=== PATIENT | male | born 1955 | race Caucasian/White ===

== ENCOUNTER → 2022-12-24 12:43 | Outpatient (BNVA) | payer MEDICARE, SELFPAY | PROVIDERS: PCP Internal Medicine; Visit Provider Nurse Practitioner Family | DX: R41.89 Other symptoms and signs involving cognitive functions and awareness (principal); R53.83 Other fatigue; G47.33 Obstructive sleep apnea (adult) (pediatric) | CPT/HCPCS: 99202 ==

== ENCOUNTER 2023-02-04 13:19 | Outpatient (REF) | payer MEDICARE, SELFPAY ==
--- NOTE | ~2023-02-04 | MR_ITS ---
EXAMINATION: MR BRAIN WITHOUT CONTRAST CLINICAL INFORMATION: Cognitive issues, memory problems COMPARISON: None TECHNIQUE: Multiplanar multisequence MR imaging of the brain was obtained without intravenous contrast. FINDINGS: There is no acute infarct on diffusion-weighted imaging. There is no intracranial hemorrhage on iron-sensitive imaging. No extra-axial collection or mass effect/herniation. Scattered periventricular and deep white matter and patchy left central pontine T2 FLAIR hyperintensities consistent with mild underlying microangiopathy. No hydrocephalus. Mild generalized cerebral volume loss with commensurate sulcal and ventricular prominence. The major flow voids at the skull base are preserved. The midline structures are normal. The cerebellar tonsils are normally positioned. The craniocervical junction is normal. Marrow signal is within normal limits. The visualized soft tissues are without significant abnormality. Mild ethmoid sinus mucosal thickening. MR/MR head/brain wo con IMPRESSION: Mild generalized cerebral volume loss and mild chronic white matter microangiopathy. Otherwise unremarkable noncontrast MRI of the brain.
== END 2023-02-04 13:20 | disposition home or self-care (01) ==
LOC: HO.MRI 13:19
PROVIDERS: Visit Provider Nurse Practitioner Family
DX: R41.3 Other amnesia (principal)
CPT/HCPCS: 70551

== ENCOUNTER → 2023-03-04 08:59 | Outpatient (REF) | payer MEDICARE, SELFPAY | LOC: HO.SL 08:59 | PROVIDERS: Visit Provider Nurse Practitioner Family | DX: G47.33 Obstructive sleep apnea (adult) (pediatric) (principal); R41.89 Other symptoms and signs involving cognitive functions and awareness; R53.83 Other fatigue | CPT/HCPCS: 95806 ==

== ENCOUNTER → 2023-03-04 09:30 | Outpatient (BNV) | payer MEDICARE, SELFPAY | PROVIDERS: Visit Provider Psychiatry & Neurology Neurology | DX: R06.83 Snoring (principal) | CPT/HCPCS: 95806 ==

== ENCOUNTER 2023-03-17 10:37 | Outpatient (AMB) | payer MEDICARE, SELFPAY ==
--- NOTE | 2023-03-17 10:43 | A.OFFVIS_ITS ---
Intake Vital Signs 03/17/23 10:48 Weight 208 lb BP 126/62 Blood Pressure Location Rt brachial Pulse 99 Pulse Source Pulse Oximeter Pulse Oximetry (%) 98 Oxygen Delivery Method Room Air Intake Visit Reasons: 2m follow up memory impairment-Unable to lvm Intake Note: F/U Memory General Foreman Required: No Allergies lisinopril Adverse Reaction (Mild, Verified 03/17/23 10:44) Cough HPI HPI Comments History of Present Illness Details 67 y/o male patient presents for follow up of cognitive impairment and sleep study. Pt underwent neuropsycohology evaluation. The result was mild cognitive impairment, nonamnestic type, likely due to vas cular factors that include diabetes, hypertension, obesity and sleep apnea. The home sleep study was inconclusive. Brain MRI result was mild generalized cerebral volume loss and mild chronic white matter microangiopathy. The lab result reviewed, His A1C 8.2, vitamin D was 19.2, Sed Rate 24 and C reactive protein was 1.7. Pt reports he as appointment with endocrinoloigst in Jun. He states that he signed gym and exercise started. His memory is about the saem,can't remember well, use note pad and write down everything, check his schedule every hour. [facility] Surgical History (Updated 03/17/23 @ 10:47 by Precious Watson CMA) History of right hip replacement Status post right knee replacement Family History (Updated 12/24/22 @ 13:02 by Koki Jacobsen) Father Skin cancer Social History (Updated 03/17/23 @ 10:48 by Precious Watson CMA) Alcohol intake: current Alcohol intake frequency: holidays/special occasions only Patient Tobacco Use Status: Current someday Tobacco user Review of Systems Const All systems reviewed & are unremarkable except as noted in HPI and below ENT Reports Normal hearing present Neuro Reports Normal hearing present Physical Exam Vital Signs: Last Vital Signs Pulse 99 03/17/23 10:48 BP 126/62 03/17/23 10:48 Pulse Ox 98 03/17/23 10:48 Oxygen Delivery Method Room Air 03/17/23 10:48 Const General: cooperative Nutritional Appearance: obese Orientation/consciousness: patient oriented x3 Resp Effort & Inspection: normal respiratory effort and able to speak in complete sentences Neuro General: patient oriented x3, gait normal and moves all extremities Cranial nerves: Yes Bilaterally intact EOM present, Yes Normal facial strength present, Yes Midline tongue present, Yes Symmetric palate elevation present, Yes Normal hearing present, Yes Ability to bilaterally rotate head present and Yes Ability to bilaterally elevate shoulders present Cognition (Neuro): normal cognition Gait exam (Neuro): Normal gait present Motor exam (neuro): 5/5 motor strength present throughout, Pronator motor function not present and no tremor noted Deep tendon reflexes (DTR's): Right brachioradialis reflex intensity grade: 1+, Left brachioradialis reflex intensity grade: 1+, Right patellar reflex intensity grade: 2+ and Left patellar reflex intensity grade: 2+ Psych Appearance: grossly normal Mental Status: mental status grossly normal Speech and movement: Normal speech and movement present Affect: normal affect Attitude: cooperative Assessment & Plan Assessment & Plan (1) MIKAYLA (obstructive sleep apnea): Code(s): G47.33 - Obstructive sleep apnea (adult) (pediatric) (2) Fatigue: Code(s): R53.83 - Other fatigue (3) Cognitive decline: Code(s): R41.89 - Other symptoms and signs involving cognitive functions and awareness Plan Advised patient to undergo in lab sleep study to assess sleep apnea. Advised patient to start vitmain D3+K2 supplement with vitamin B complex. Suggested patient to have anti-inflammatory diet. Encouraged daily exercise, vigorous walking 30 min daily. Follow up with taxicab coordinator for diabetes management. Repeat neuropsychology evaluation in 6 months. Orders: Orders RT PSG in-lab sleep study 03/17/23 G47.33 - Obstructive sleep apnea (adult) (pediatric) Coding Level of Care Code Est Pt Level 4 (41863) Diagnoses MIKAYLA (obstructive sleep apnea) G47.33 Fatigue R53.83 Cognitive decline R41.89
[2023-03-17 10:48] VITALS: BP 126/62; PULSE 99; O2SAT 98
== END 2023-03-17 11:27 | disposition home or self-care (01) ==
PROVIDERS: PCP Internal Medicine; Visit Provider Nurse Practitioner Family
DX: G47.33 Obstructive sleep apnea (adult) (pediatric) (principal); R53.83 Other fatigue; R41.89 Other symptoms and signs involving cognitive functions and awareness
CPT/HCPCS: 99214

== ENCOUNTER → 2023-03-17 10:37 | Outpatient (BNVA) | payer MEDICARE, SELFPAY | PROVIDERS: PCP Internal Medicine; Visit Provider Nurse Practitioner Family | DX: R41.89 Other symptoms and signs involving cognitive functions and awareness (principal); R53.83 Other fatigue; G47.33 Obstructive sleep apnea (adult) (pediatric) | CPT/HCPCS: 99212 ==

== ENCOUNTER → 2023-04-01 20:30 | Outpatient (REF) | payer MEDICARE, SELFPAY | LOC: HO.SL 20:30 | PROVIDERS: PCP Internal Medicine; Visit Provider Nurse Practitioner Family | DX: G47.33 Obstructive sleep apnea (adult) (pediatric) (principal) | CPT/HCPCS: 95810 ==

== ENCOUNTER → 2023-04-01 20:55 | Outpatient (BNV) | payer MEDICARE, SELFPAY | PROVIDERS: PCP Internal Medicine; Visit Provider Psychiatry & Neurology Neurology | DX: G47.9 Sleep disorder, unspecified (principal) | CPT/HCPCS: 95810 ==

== ENCOUNTER → 2023-06-08 19:30 | Outpatient (REF) | payer MEDICARE, SELFPAY | LOC: HO.SL 19:30 | PROVIDERS: PCP Internal Medicine; Visit Provider Nurse Practitioner Family | DX: G47.33 Obstructive sleep apnea (adult) (pediatric) (principal); R41.89 Other symptoms and signs involving cognitive functions and awareness | CPT/HCPCS: 95810 ==

== ENCOUNTER → 2023-06-08 23:31 | Outpatient (BNV) | payer MEDICARE, SELFPAY | PROVIDERS: PCP Internal Medicine; Visit Provider Psychiatry & Neurology Neurology | DX: G47.61 Periodic limb movement disorder (principal) | CPT/HCPCS: 95810 ==

== ENCOUNTER 2023-07-26 11:02 | Outpatient (AMB) | payer MEDICARE, SELFPAY ==
--- NOTE | 2023-07-26 11:17 | A.OFFVIS_ITS ---
Intake Vital Signs 07/26/23 11:23 Height 5 ft 10 in Weight 195 lb 8 oz BMI 28.0 BP 130/72 Blood Pressure Location Lt brachial Position Sitting Pulse 108 H Pulse Source Pulse Oximeter Pulse Oximetry (%) 97 Oxygen Delivery Method Room Air Intake Visit Reasons: 6m follow up memory impairment CONF Intake Note: Patient presents six month F/U. Allergies lisinopril Adverse Reaction (Mild, Verified 07/27/23 13:31) Cough HPI HPI Comments History of Present Illness Details 68 y/o male patient presents for follow up of cognitive impairment and sleep study. Pt underwent neuropsycohology evaluation. The result was mild cognitive impairment, nonamnestic type, likely due to vascular factors that include diabetes, hypertension, obesity and sleep apnea. The 6 moths repeat neuropsychology evaluation result was generally stable and keeping with a diagnosis of mild cognitive impairment. Recommended repeat neuropsychology evaluation in 6 months, SSRI antidepressant at bedtime to help his mood and sleep. Pt reports his memory is about the same ,can't remember well, use note pad and write down everything, check his schedule every hour. The PSG sleep study result was significant for frequent PLMD with associated with arousals and causing sleep disruption. There was no evidence of sleep apnea. Pt has remote hx of sleep apnea and non compliant for CPAP. The lab result reviewed, His A1C 8.2, vitamin D was 19.2, Sed Rate 24 and C reactive protein was 1.7. He states that he signed gym and exercise started. [facility] Surgical History History of right hip replacement Status post right knee replacement Family History Father Skin cancer Social History Alcohol intake: current Alcohol intake frequency: holidays/special occasions only Patient Tobacco Use Status: Current someday Tobacco user Review of Systems Const All systems reviewed & are unremarkable except as noted in HPI and below ENT Reports Normal hearing present Neuro Reports Normal hearing present Physical Exam Vital Signs: Last Vital Signs Pulse 108 H 07/26/23 11:23 BP 130/72 07/26/23 11:23 Pulse Ox 97 07/26/23 11:23 Oxygen Delivery Method Room Air 07/26/23 11:23 BMI result Body Mass Index 28.0 Const General: cooperative Nutritional Appearance: obese Orientation/consciousness: patient oriented x3 Resp Effort & Inspection: normal respiratory effort and able to speak in complete sentences Neuro General: patient oriented x3, gait normal and moves all extremities Cranial nerves: Yes Bilaterally intact EOM present, Yes Normal facial strength present, Yes Midline tongue present, Yes Symmetric palate elevation present, Yes Normal hearing present, Yes Ability to bilaterally rotate head present and Yes Ability to bilaterally elevate shoulders present Cognition (Neuro): normal cognition Gait exam (Neuro): Normal gait present Motor exam (neuro): 5/5 motor strength present throughout, Pronator motor function not present and no tremor noted Deep tendon reflexes (DTR's): Right brachioradialis reflex intensity grade: 1+, Left brachioradialis reflex intensity grade: 1+, Right patellar reflex intensity grade: 2+ and Left patellar reflex intensity grade: 2+ Psych Appearance: grossly normal Mental Status: mental status grossly normal Speech and movement: Normal speech and movement present Affect: normal affect Attitude: cooperative Assessment & Plan Assessment & Plan (1) Cognitive decline: Code(s): R41.89 - Other symptoms and signs involving cognitive functions and awareness (2) PLMD (periodic limb movement disorder): Code(s): G47.61 - Periodic limb movement disorder Plan Advised patient to start citalopram 10 mg qHS. Suggested patient to have anti-inflammatory diet. Encouraged daily exercise, vigorous walking 30 min daily. Follow up with postulant for diabetes management. Repeat neuropsychology evaluation in 6 months. Medications: New citalopram 10 mg PO BEDTIME 30 tabs 6RF 30 days Coding Level of Care Code Est Pt Level 4 (54376) Diagnoses Cognitive decline R41.89 PLMD (periodic limb movement disorder) G47.61
[2023-07-26 11:23] VITALS: BP 130/72; PULSE 108; O2SAT 97; BMI 28.0
== END 2023-07-26 11:58 | disposition home or self-care (01) ==
PROVIDERS: PCP Internal Medicine; Visit Provider Nurse Practitioner Family
DX: R41.89 Other symptoms and signs involving cognitive functions and awareness (principal); G47.61 Periodic limb movement disorder
CPT/HCPCS: 99214

== ENCOUNTER → 2023-07-26 11:02 | Outpatient (BNVA) | payer MEDICARE, SELFPAY | PROVIDERS: PCP Internal Medicine; Visit Provider Nurse Practitioner Family | DX: R41.89 Other symptoms and signs involving cognitive functions and awareness (principal); G47.61 Periodic limb movement disorder | CPT/HCPCS: 99212 ==

== ENCOUNTER 2023-07-27 10:22 | Outpatient (REF) | payer MEDICARE, SELFPAY | END 2023-07-27 10:23 | disposition home or self-care (01) | LOC: HO.HOSX 10:22 | PROVIDERS: Visit Provider Orthopaedic Surgery | DX: M25.512 Pain in left shoulder (principal); Z79.899 Other long term (current) drug therapy | CPT/HCPCS: 99202 ==

== ENCOUNTER 2023-07-27 13:11 | Outpatient (AMB) | payer MEDICARE, SELFPAY ==
[2023-07-27 13:22] VITALS: BMI 28.0
--- NOTE | 2023-07-27 13:22 | A.OFFVIS_ITS ---
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 The patient describes his pain as sharp in nature. Most of the pain is along the lateral aspect of his shoulder. He has done physical therapy which aggravated his pain. He has also tried Tylenol and anti-inflammatory medicines which gave him minimal relief. Has had injections in the past which gave him no relief. The patient was seen by another orthopedic surgeon who recommended total shoulder replacement surgery. He presents here for a 2nd opinion regarding his treatment options. Allergies lisinopril Adverse Reaction (Mild, Verified 07/27/23 13:31) Cough Medication List - Last Reconciled 07/27/23 by Melvin Fields MD aspirin (Adult Aspirin Regimen) 81 mg PO DAILY karthik rxt-jmr-M6-Kz-chu-qyb-bor 250-40-125 mg-mg-unit (Citracal-D3 Plus Magnesium) tabs PO citalopram 10 mg PO BEDTIME 30 days dulaglutide (Trulicity) 4.5 mg subcut QWEEK empagliflozin (Jardiance) 25 mg PO DAILY omeprazole 20 mg PO DAILY pramipexole 0.125 mg PO DAILY rosuvastatin 5 mg PO DAILY vitamins A,C,P-qyum-cckfgf 4,296 mcg-226 mg-90 mg (PreserVision AREDS) 1 cap PO BID PFSH Surgical History History of right hip replacement Status post right knee replacement Family History Father Skin cancer Social History Alcohol intake: current Alcohol intake frequency: holidays/special occasions only Patient Tobacco Use Status: Current someday Tobacco user Physical Exam Vital Signs: BMI result Body Mass Index 28.0 Const Other: Well-nourished well-developed very friendly male awake alert and oriented x3 in no acute distress Extrem Other: Bilateral upper extremity examination shows good capillary refill, no skin lesions noted, normal sensation light touch Left shoulder examination shows slightly decreased range of motion when compared to his right shoulder, 4/5 strength with supraspinatus testing, positive impingement signs, tenderness over his acromioclavicular joint, no instability Results Reviewed Results Reviewed: MRI of the patient's left shoulder shows severe acromioclavicular joint narrowing, a type 2 acromion, mild glenohumeral joint degenerative changes, a full-thickness tear of the supraspinatus tendon Assessment & Plan Assessment & Plan (1) Left shoulder pain: Code(s): M25.512 - Pain in left shoulder Plan Mr. Severino presents with left shoulder pain and weakness due to impingement syndrome, acromioclavicular joint arthritis and a full-thickness rotator cuff tear. I had a lengthy discussion with the patient regarding the treatment options. At this point I do not feel that his glenohumeral joint degenerative changes warrant a total shoulder replacement. The patient may indeed benefit from rotator cuff repair surgery. The patient does understand that his rotator cuff tear may be irreparable at this time. The risks and benefits of left shoulder surgery were discussed at length with the patient. The patient wishes to proceed with surgery. Surgery will most likely involve left shoulder diagnostic arthroscopy with distal clavicle excision, acromioplasty and rotator cuff repair. I will have my office contact the patient to pick a surgery date. He will follow-up as instructed. He will continue with his range of motion exercises in the meantime to prevent stiffness. Feel free to call me at any time should questions regarding his orthopedic management arise. I spent 22 minutes in reviewing the patient's records and imaging studies, seeing the patient and documenting in the medical record. Orders: Orders XR shoulder LT min 2V Today M25.512 - Pain in left shoulder Coding Level of Care Code New Pt Level 2 (54959) Diagnoses Left shoulder pain M25.512
== END 2023-07-27 13:54 | disposition home or self-care (01) ==
PROVIDERS: PCP Internal Medicine; Visit Provider Orthopaedic Surgery
DX: M25.512 Pain in left shoulder (principal)
CPT/HCPCS: 99202; 99212

== ENCOUNTER → 2023-10-06 13:02 | Outpatient (BNV) | payer MEDICARE, SELFPAY | PROVIDERS: PCP Internal Medicine; Visit Provider Internal Medicine Cardiovascular Disease | DX: R94.31 Abnormal electrocardiogram [ECG] [EKG] (principal) | CPT/HCPCS: 93010 ==

== ENCOUNTER 2023-10-07 11:49 | Outpatient (AMB) | payer MEDICARE, SELFPAY ==
[2023-10-07 12:03] VITALS: BMI 28.0
--- NOTE | 2023-10-07 12:03 | MHC.OFFVIS ---
Intake Vital Signs 10/07/23 12:03 Height 5 ft 10 in Weight 195 lb BMI 28.0 Intake Visit Reasons: Pre-Lt Shld RTC 10/15/23 Intake Note: Giancarlo is a 68 year old right-hand dominant male who presents with complaints of progressively worsening left shoulder pain and weakness. The patient describes his pain as sharp in nature. Most of the pain is along the lateral aspect of his shoulder. He has done physical therapy which aggravated his pain. He has also tried Tylenol and anti-inflammatory medicines which gave him minimal relief. Has had injections in the past which gave him no relief. The patient was seen by another orthopedic surgeon who recommended total shoulder replacement surgery. He presented to me for a 2nd opinion regarding his treatment options. The patient reports difficulty lifting his left hand above shoulder height. Giancarlo is a 68 year old Right hand dominate male who presents for his Pre operative appointment for his Left shoulder RTC on 10/15/2023. Allergies lisinopril Adverse Reaction (Mild, Verified 07/27/23 13:31) Cough Medication List - Last Reconciled 10/07/23 by Melvin Fields MD aspirin (Adult Aspirin Regimen) 81 mg PO BEDTIME karthik obz-sxk-B0-Bb-sgi-qni-bor 250-40-125 mg-mg-unit (Citracal-D3 Plus Magnesium) 1 tab PO DAILY cholecalciferol (vitamin D3) (Vitamin D3) 25 mcg PO DAILY citalopram 10 mg PO BEDTIME 30 days dulaglutide (Trulicity) 4.5 mg subcut QWEEK empagliflozin (Jardiance) 25 mg PO QAM insulin glargine (Basaglar KwikPen U-100 Insulin) 20 - 22 units subcut QAM magnesium oxide 400 mg PO DAILY omeprazole 20 mg PO QAM oxycodone 10 mg (2 x 5 mg) PO Q4H PRN 1 week pramipexole 1.5 mg PO BEDTIME rosuvastatin 5 mg PO DAILY vitamins A,C,P-nvuz-mrssby 4,296 mcg-226 mg-90 mg (PreserVision AREDS) 1 cap PO BID PFSH Medical History Osteoarthritis DVT (deep venous thrombosis) Depression RBBB (right bundle branch block) LAFB (left anterior fascicular block) Spinal stenosis Cognitive decline Elevated cholesterol GERD (gastroesophageal reflux disease) Diabetes Sleep apnea PLMD (periodic limb movement disorder) Surgical History History of esophagogastroduodenoscopy (EGD) H/O colonoscopy Hx of shoulder surgery History of total left hip replacement History of right hip replacement Status post right knee replacement Family History Father Skin cancer Social History Are you a primary patient care provider to a significant other at home: No Do you presently have visiting nurse or other home services: No Alcohol intake: current Alcohol intake frequency: does not drink Patient Tobacco Use Status: Former Tobacco user Quit Date: 1989 Tobacco use type: Cigarette Years Smoked: 15 Physical Exam Vital Signs: BMI result Body Mass Index 28.0 Const Other: Bilateral upper extremity examination shows good capillary refill, no skin lesions noted, normal sensation light touch Extrem Other: Left shoulder examination shows decreased range of motion when compared to his right shoulder, 4/5 strength with supraspinatus testing, positive impingement signs, tenderness over his acromioclavicular joint, no instability Results Reviewed Results Reviewed: MRI of the patient's left shoulder shows severe acromioclavicular joint narrowing, a type 2 acromion, mild glenohumeral joint degenerative changes, a full-thickness rotator cuff tear Assessment & Plan Assessment & Plan (1) Left shoulder pain: Code(s): M25.512 - Pain in left shoulder Plan Mr. Severino presents with left shoulder pain and weakness due to impingement syndrome, acromioclavicular joint arthritis and a full-thickness rotator cuff tear. I had a lengthy discussion with the patient regarding the treatment options. The risks and benefits of left shoulder surgery were discussed at length with the patient. The patient wishes to proceed with surgery. Surgery will likely involve left shoulder diagnostic arthroscopy with distal clavicle excision, acromioplasty and rotator cuff repair. The patient was given a prescription for oxycodone at his preoperative appointment. He will follow-up as instructed. Feel free to call me at any time should questions regarding his orthopedic arise. I spent 22 minutes in reviewing the patient's records and imaging studies, seeing the patient and documenting in the medical record. Medications: New oxycodone Partial Fill upon patient request. Take 1 to 2 tabs every 4 hours as needed for pain following your left shoulder surgery. 10 mg (2 x 5 mg) PO Q4H 1 week PRN 40 tabs 0RF pain Coding Level of Care Code Est Pt Level 2 (85280) Diagnoses Left shoulder pain M25.512
== END 2023-10-07 12:33 | disposition home or self-care (01) ==
PROVIDERS: PCP Internal Medicine; Visit Provider Orthopaedic Surgery
DX: M25.512 Pain in left shoulder (principal)
CPT/HCPCS: 99214

== ENCOUNTER → 2023-10-07 11:49 | Outpatient (BNVA) | payer MEDICARE, SELFPAY | PROVIDERS: PCP Internal Medicine; Visit Provider Orthopaedic Surgery | DX: M25.512 Pain in left shoulder (principal) | CPT/HCPCS: 99212 ==

== ENCOUNTER 2023-10-15 07:04 | Day surgery (SDC) | payer MEDICARE, SELFPAY ==
--- NOTE | 2023-10-06 | ECG_ITS ---
Test Reason : preop Blood Pressure : / mmHG Vent. Rate : 086 BPM Atrial Rate : 086 BPM P-R Int : 182 ms QRS Dur : 144 ms QT Int : 382 ms P-R-T Axes : 063 002 032 degrees QTc Int : 457 ms Normal sinus rhythm Right bundle branch block Abnormal ECG No previous ECGs available Referred By: Karen Muir Electronically Signed By:TIGRE PETE MD
[2023-10-06 12:22] VITALS: BP 104/58; PULSE 98; RESP 20; O2SAT 99; BMI 28.0
--- NOTE | 2023-10-06 12:33 | HO.ANESPROP2 ---
Documented by User: Karen Muir NP 10/07/23 09:33 HPI - Anesthesia Eval Consult details Narrative: 68yo M for Left Shoulder Arthroscopy, distal clavicle excision, acromioplasty, possible rotator cuff repair Recent URI resolving No CP/SOB with walking daily DM: Improved A1C MIKAYLA: Symptoms better with weight loss GERD: ppi controlls Anesthesia Pre-Procedure Meds Is the patient on any of the following meds?: Dulaglutide (Trulicity) and Any other SGL-1 drugs or drugs that delay gastric emptying (Jardiance) PMFSH Active Problems Active Problems: All Active Problems (Updated 10/06/23 @ 12:12 by Diamond Turner RN) PLMD (periodic limb movement disorder) (Acute) Left shoulder pain (Acute) MIKAYLA (obstructive sleep apnea) (Acute) Fatigue (Acute) Cognitive decline (Acute) Past Medical History Medical History Osteoarthritis DVT (deep venous thrombosis) Depression RBBB (right bundle branch block) LAFB (left anterior fascicular block) Spinal stenosis Cognitive decline Elevated cholesterol GERD (gastroesophageal reflux disease) Diabetes Sleep apnea PLMD (periodic limb movement disorder) Family History Family History Father Skin cancer Family history of problems with anesthesia: No Surgical History Surgical History History of esophagogastroduodenoscopy (EGD) H/O colonoscopy Hx of shoulder surgery History of total left hip replacement History of right hip replacement Status post right knee replacement History of Problems with Anesthesia: No Social History Social History Are you a primary health care facilities inspector to a significant other at home: No Do you presently have visiting nurse or other home services: No Alcohol intake: current Alcohol intake frequency: does not drink Patient Tobacco Use Status: Former Tobacco user Quit Date: 1989 Tobacco use type: Cigarette Years Smoked: 15 Use of substances other than those prescribed or required for medical reasons: No Have you been hit, kicked, punched, or otherwise hurt by someone within the past year? If so, by whom?: No Are you DNR?: No Advance Directives: No Advance Directives Information Provided: Yes Advance Directives on File: No Recently lost weight without trying: No Nutrition Risks: No Nutritional Risk Poor oral hygiene: No (upper molar extractions bilateral) Meds Allergies Allergy/AdvReac Type Severity Reaction Status Date / Time lisinopril AdvReac Mild Cough Verified 07/27/23 13:31 Home Medications ?Medication ?Instructions ?Recorded ?Confirmed ?Last Taken ?Type calcium 1 tab PO DAILY 12/24/22 10/07/23 Unknown History hlv-pmr-Z3-Cl-fagfgc-Ov-boron 250 mg-40 mg-125 unit tablet (Citracal-D3 Plus Magnesium) dulaglutide 4.5 mg/0.5 mL 4.5 mg subcut QWEEK 12/24/22 10/07/23 10/15/23 History subcutaneous pen injector (Trulicity) empagliflozin 25 mg tablet 25 mg PO QAM 12/24/22 10/07/23 10/15/23 History (Jardiance) omeprazole 20 mg capsule,delayed 20 mg PO QAM 12/24/22 10/07/23 Unknown History release pramipexole 0.125 mg tablet 1.5 mg PO BEDTIME 12/24/22 10/07/23 Unknown History vitamins A,C,V-soqd-twxbfk 4,296 1 cap PO BID 12/24/22 10/07/23 Unknown History mcg-226 mg-90 mg capsule (PreserVision AREDS) aspirin 81 mg tablet,delayed 81 mg PO BEDTIME 07/27/23 10/07/23 Unknown History release (Adult Aspirin Regimen) rosuvastatin 5 mg tablet 5 mg PO DAILY 07/27/23 10/07/23 Unknown History insulin glargine 100 unit/mL (3 20 - 22 unit subcut QAM 10/05/23 10/07/23 10/15/23 History mL) subcutaneous pen (Basaglar KwikPen U-100 Insulin) cholecalciferol (vitamin D3) 25 25 mcg PO DAILY 10/06/23 10/07/23 Unknown History mcg (1,000 unit) capsule (Vitamin D3) magnesium oxide 400 mg PO DAILY 10/06/23 10/07/23 Unknown History Exam Height,Weight and Vital Signs: Height 5 ft 10 in Weight 88.451 kg Last Vital Signs Pulse 98 10/06/23 12:22 Resp 20 10/06/23 12:22 BP 104/58 L 10/06/23 12:22 Pulse Ox 99 10/06/23 12:22 O2 Del Method Room Air 10/06/23 12:22 Pertinent Lab Results Pertinent Lab Results: Lab Results 10/06/23 Range/Units 13:10 WBC 10.9 H (4.8-10.8) X10*3/uL RBC 5.55 (4.60-5.80) X10*6/uL Hgb 14.2 (14.0-18.0) g/dl Hct 44.8 (42.0-52.0) % MCV 80.7 (80.0-98.0) fL MCH 25.6 L (27.0-33.0) pg MCHC 31.7 (31.0-36.0) g/dl RDW 14.5 (11.0-16.0) % Plt Count 268 (160-400) X10*3/uL MPV 10.6 (9.4-12.4) fL Absolute Nucleated RBC 0.000 (0.0-0.012) X10*3/uL Nucleated RBC % (auto) 0.0 (0.0-0.2) /100WBC Sodium 138 (135-145) mmol/L Potassium 4.8 (3.3-5.1) mmol/L Chloride 101 (96-108) mmol/L Carbon Dioxide 28 (22-29) mmol/L Anion Gap 14 (12-20) BUN 11 (9-16) mg/dL Creatinine 0.68 (0.5-1.4) mg/dL Estim Creat Clear Calc 119.6 Estimated GFR > 60 Random Glucose 111 (60-115) mg/dL Calcium 9.7 (8.4-10.2) mg/dL Narrative Narrative: EKG 10/2023 Vent. Rate : 086 BPM Atrial Rate : 086 BPM P-R Int : 182 ms QRS Dur : 144 ms QT Int : 382 ms P-R-T Axes : 063 002 032 degrees QTc Int : 457 ms Normal sinus rhythm Right bundle branch block Abnormal ECG No previous ECGs available Airway Mallampati Class: II TM Dist: >3cm Neck ROM: Full Loose/Missing/Broken Teeth: Yes (Molars pulled x 2, crowns) Heart: RRR Lungs: CTAB Assessment and Plan Assessment Anesthesia Assessment: Anesthesia Plan Discussed and PAT Visit Final Anesthetic Review Family History of Problems with Anesthesia: No History of Problems with Anesthesia: No Documented by User: Darshana Vale MD 10/15/23 08:04 HPI - Anesthesia Eval Anesthesia Pre-Procedure Meds If Yes to any meds - educate patient: Pt education - increased risk of aspiration and Pt education - possibility of cancelled proc at provider's discretion PMFSH Past Medical History Medical History Osteoarthritis DVT (deep venous thrombosis) Depression RBBB (right bundle branch block) LAFB (left anterior fascicular block) Spinal stenosis Cognitive decline Elevated cholesterol GERD (gastroesophageal reflux disease) Diabetes Sleep apnea PLMD (periodic limb movement disorder) Family History Family History Father Skin cancer Surgical History Surgical History History of esophagogastroduodenoscopy (EGD) H/O colonoscopy Hx of shoulder surgery History of total left hip replacement History of right hip replacement Status post right knee replacement Social History Social History Are you a primary health care facilities inspector to a significant other at home: No Do you presently have visiting nurse or other home services: No Alcohol intake: current Alcohol intake frequency: does not drink Patient Tobacco Use Status: Former Tobacco user Quit Date: 1989 Tobacco use type: Cigarette Years Smoked: 15 Use of substances other than those prescribed or required for medical reasons: No Have you been hit, kicked, punched, or otherwise hurt by someone within the past year? If so, by whom?: No Are you DNR?: No Advance Directives: No Advance Directives Information Provided: Yes Advance Directives on File: No Recently lost weight without trying: No Nutrition Risks: No Nutritional Risk Poor oral hygiene: No (upper molar extractions bilateral) Meds Allergies Allergy/AdvReac Type Severity Reaction Status Date / Time lisinopril AdvReac Mild Cough Verified 07/27/23 13:31 Home Medications ?Medication ?Instructions ?Recorded ?Confirmed ?Last Taken ?Type calcium 1 tab PO DAILY 12/24/22 10/07/23 Unknown History toh-itx-J9-Sh-ppcrvn-Ke-boron 250 mg-40 mg-125 unit tablet (Citracal-D3 Plus Magnesium) dulaglutide 4.5 mg/0.5 mL 4.5 mg subcut QWEEK 12/24/22 10/07/23 10/15/23 History subcutaneous pen injector (Trulicity) empagliflozin 25 mg tablet 25 mg PO QAM 12/24/22 10/07/23 10/15/23 History (Jardiance) omeprazole 20 mg capsule,delayed 20 mg PO QAM 12/24/22 10/07/23 Unknown History release pramipexole 0.125 mg tablet 1.5 mg PO BEDTIME 12/24/22 10/07/23 Unknown History vitamins A,C,D-sxnh-ooxqpf 4,296 1 cap PO BID 12/24/22 10/07/23 Unknown History mcg-226 mg-90 mg capsule (PreserVision AREDS) aspirin 81 mg tablet,delayed 81 mg PO BEDTIME 07/27/23 10/07/23 Unknown History release (Adult Aspirin Regimen) rosuvastatin 5 mg tablet 5 mg PO DAILY 07/27/23 10/07/23 Unknown History insulin glargine 100 unit/mL (3 20 - 22 unit subcut QAM 10/05/23 10/07/23 10/15/23 History mL) subcutaneous pen (Basaglar KwikPen U-100 Insulin) cholecalciferol (vitamin D3) 25 25 mcg PO DAILY 10/06/23 10/07/23 Unknown History mcg (1,000 unit) capsule (Vitamin D3) magnesium oxide 400 mg PO DAILY 10/06/23 10/07/23 Unknown History Assessment and Plan Assessment Anesthesia Assessment: Chart Reviewed Final Anesthetic Review NPO: Yes ASA Class: III Final Preanesthetic Review: No Changes in Pt Med Stat, Meds/Allgs Chart Reviewed, Consent Obtained/Reviewed and Anes Risks/Benef Reviewed Patient Risk: Intermediate Procedure Risk: Low Anesthetic Plan Anesthetic Plan: GA Disposition: Standard PACU
[2023-10-06 13:59] LABS: Hematocrit 44.8 % (42.0-52.0); Hemoglobin 14.2 g/dl (14.0-18.0); Mean Corpuscular HGB Conc 31.7 g/dl (31.0-36.0); Mean Corpuscular Hemoglobin 25.6 pg (27.0-33.0); Mean Corpuscular Volume 80.7 fL (80.0-98.0); Mean Platelet Volume 10.6 fL (9.4-12.4); Platelet Count 268 X10*3/uL (160-400); Red Blood Count 5.55 X10*6/uL (4.60-5.80); Red Cell Distribution Width 14.5 % (11.0-16.0); White Blood Count 10.9 X10*3/uL (4.8-10.8)
[2023-10-06 14:23] LABS: Anion Gap 14 (12-20); Blood Urea Nitrogen 11 mg/dL (9-16); Calcium 9.7 mg/dL (8.4-10.2); Carbon Dioxide 28 mmol/L (22-29); Chloride 101 mmol/L (96-108); Creatinine Clr Calc Pharmacy 119.6; Estimated Glomerular Filt Rate > 60; Glucose Random 111 mg/dL (60-115); Potassium 4.8 mmol/L (3.3-5.1); Sodium 138 mmol/L (135-145)
[2023-10-15 07:21] VITALS: BMI 29.1
[2023-10-15 07:23] VITALS: BP 116/71; PULSE 107; RESP 18; TEMP 36.2; O2SAT 98
[2023-10-15] MEDS: Lactated Ringers 1,000 ML 100 ML IVCONT (07:53)
[2023-10-15 08:10] LABS: Glucose, Whole Blood 156 mg/dL (60-115)
[2023-10-15 12:16] VITALS: BP 109/57; PULSE 89; RESP 20; TEMP 36.1; O2SAT 97
[2023-10-15 12:21] VITALS: BP 106/58; PULSE 90; RESP 20; O2SAT 99
--- NOTE | 2023-10-15 12:25 | PM.OP ---
Brief Operative Note Date of Service: 10/15/23 Pre-op diagnosis: Left shoulder impingement syndrome, left shoulder acromioclavicular joint arthritis, left shoulder rotator cuff tear Post-op diagnosis: same Procedure: Left shoulder diagnostic arthroscopy with left shoulder arthroscopic distal clavicle excision, left shoulder arthroscopic acromioplasty, left shoulder mini-open rotator cuff repair Implants: One suture anchor (Hedrick Twinfix anchor with #2 Ultrabraid suture) Surgeon: Melvin Fields MD Anesthesia: GETA and regional Was an [employer] Instrument [employer] Tool Maker used for this Procedure?: No Estimated blood loss (mL): 20 Pathology: none sent Condition: stable Disposition: PACU
[2023-10-15 12:26] VITALS: BP 111/63; PULSE 90; RESP 16; O2SAT 94
[2023-10-15 12:31] VITALS: BP 123/42; PULSE 97; RESP 16; O2SAT 95
--- NOTE | 2023-10-15 12:34 | P.OP_ITS ---
Operative Note Operative Note Date of Service: 10/15/23 Narrative: After the patient was identified as Giancarlo Severino and his left shoulder was initialed by myself the patient was brought to the holding area where a left shoulder interscalene regional block was performed by the anesthesiologist in routine fashion. The patient was then brought to the operating room where general anesthesia was induced by the anesthesiologist in routine fashion. The patient was given 2 g of IV Ancef preoperatively for infection prophylaxis. Examination under anesthesia of the patient's left shoulder showed full passive range of motion of the patient's left shoulder when compared to the right. The patient was gently positioned in the beach chair position with all bony prominences well padded. The patient's left shoulder region and upper extremity were prepped and draped in sterile fashion. A formal time-out was completed. A #11 scalpel blade was used to make a posterior portal 2 cm inferior and 1 cm medial to the posterolateral corner of the acromion. Blunt trocar technique was used to enter the glenohumeral joint in routine fashion. An anterior portal was made just lateral to the coracoid process after proper positioning was confirmed using a spinal needle. Diagnostic arthroscopy showed diffuse grade 1 and 2 degenerative changes of the glenoid and humeral head articular surfaces. The articular surfaces were already smooth so no chondroplasty was indicated. There was a full-thickness tear of the supraspinatus tendon. There was no evidence of injury to the biceps tendon or its insertion onto the glenoid. There was no inflammation of the anterior joint capsule. The arthroscope was then placed from the posterior portal into the subacromial space. A lateral portal was made 2 fingerbreadths lateral to the anterior lateral corner of the acromion. The ArthroCare Wand was used to ablate soft tissues along the undersurface of the acromion as well as to excise the coracoacromial ligament. There was a sharp spur along the undersurface of the acromion which was removed using the hooded bur. The arthroscope was then placed into the lateral portal and the acromioplasty was completed with the bur in the posterior portal using the posterior aspect of the acromion as a cutting block. The ArthroCare Wand was then brought in through the anterior portal and was used to ablate soft tissues along the acromioclavicular joint and distal clavicle. The posterior and sup erior ligamentous structures were left intact. A distal clavicle excision of 4 mm was performed using the hooded bur. Any remaining bursal tissue was removed using the arthroscopic shaver. The subacromial space was irrigated and then drained. All arthroscopic instruments were removed. Sterile gloves were changed and the shoulder was once again prepped with Betadine. A #15 scalpel blade was used to extend the lateral portal to the lateral edge of the acromion. The subacromial tissues were dissected using electrocautery down to the superficial deltoid fascia. The trocar split in the anterior raphe of the deltoid was then extended to the lateral edge of the acromion using electrocautery and curved Nathan scissors. Any remaining bursal tissue was removed using curved Nathan scissors. Subacromial and subdeltoid adhesions were bluntly dissected. The undersurface of the acromion was palpated and it was smooth. A #2 Ethibond tag suture was placed into the supraspinatus tendon. The tendon was easily mobilized to its insertion point on the glenoid. The wound was irrigated with copious amounts of normal saline solution. One suture anchor was placed into the greater tuberosity in routine fashion. The rotator cuff repair was then performed using horizontal mattress sutures under minimal tension with the patient's elbow at their side. Following the repair the shoulder was taken through a full range of motion. The repair was stable. The wound was irrigated with copious amounts of normal saline solution. The superficial and deep deltoid fascia were closed with #1 Vicryl [id number]-uq-[id number] interrupted suture. The wound was once again irrigated. The subcutaneous tissues were closed with 2-0 Vicryl interrupted suture. The skin was closed with 3-0 Prolene subcuticular suture and Steri-Strips. The anterior and posterior portals were closed with 3-0 nylon interrupted suture. Dry sterile dressing was placed over all incisions. The patient's left upper extremity was placed into a sling. The patient was awoken and extubated in the operating room. The patient was transferred to the recovery room in stable condition.
[2023-10-15] MEDS: cefTRIAXone sodium 1 GM in 0.9 % Sodium Chloride 50 ML IV (12:37)
[2023-10-15 12:46] VITALS: BP 114/65; PULSE 95; RESP 16; TEMP 36.1; O2SAT 96
== END 2023-10-15 13:20 | disposition home or self-care (01) ==
PROVIDERS: Nurse Practitioner; PCP Internal Medicine; Visit Provider Orthopaedic Surgery
PROC: (CPT 29805; principal; 2023-10-15 10:30)
DX: M75.102 Unspecified rotator cuff tear or rupture of left shoulder, not specified as traumatic (principal); M75.42 Impingement syndrome of left shoulder; M19.012 Primary osteoarthritis, left shoulder; E11.9 Type 2 diabetes mellitus without complications; E78.00 Pure hypercholesterolemia, unspecified; K21.9 Gastro-esophageal reflux disease without esophagitis; G47.33 Obstructive sleep apnea (adult) (pediatric); Z79.84 Long term (current) use of oral hypoglycemic drugs; Z79.85 Long-term (current) use of injectable non-insulin antidiabetic drugs; Z79.4 Long term (current) use of insulin; Z79.82 Long term (current) use of aspirin; Z79.899 Other long term (current) drug therapy; Z88.8 Allergy status to other drugs, medicaments and biological substances
CPT/HCPCS: 23412; 29824; 29826; 36415; 80048; 82947; 85027; 93005; C1713; J0131; J0171; J0665; J0690; J0696; J1100; J2250; J2371; J2405; J2704; J2795; J3010

== ENCOUNTER → 2023-10-15 07:04 | Outpatient (BNV) | payer MEDICARE, SELFPAY | PROVIDERS: PCP Internal Medicine; Visit Provider Orthopaedic Surgery | DX: M75.42 Impingement syndrome of left shoulder (principal); M19.012 Primary osteoarthritis, left shoulder; M75.122 Complete rotator cuff tear or rupture of left shoulder, not specified as traumatic | CPT/HCPCS: 23412; 29824; 29826 ==

== ENCOUNTER 2023-10-28 11:29 | Outpatient (AMB) | payer MEDICARE, SELFPAY ==
--- NOTE | 2023-10-28 11:33 | MHC.OFFVIS ---
Intake Visit Reasons: PO-Lt Shld RTC Repair 10/15/23 Intake Note: Giancarlo a 68 year old male who presents today for a post operative left shoulder RTC repair on 10/15/23 Patient reports he is doing well, states no pain or discomfort. Allergies lisinopril Adverse Reaction (Mild, Verified 10/28/23 11:34) Cough HPI HPI PO-Lt Shld RTC Repair 10/15/23 DR: Details: 68-year-old male who returns to the office today for post-op left shoulder RTC repair, 10/15/[address] Fields. He states he has no pain or discomfort and is doing well overall. He continues to wear the sling as instructed. He has no concerns today. [facility] Medical History Osteoarthritis DVT (deep venous thrombosis) Depression RBBB (right bundle branch block) LAFB (left anterior fascicular block) Spinal stenosis Cognitive decline Elevated cholesterol GERD (gastroesophageal reflux disease) Diabetes Sleep apnea PLMD (periodic limb movement disorder) Surgical History History of esophagogastroduodenoscopy (EGD) H/O colonoscopy Hx of shoulder surgery History of total left hip replacement History of right hip replacement Status post right knee replacement Family History Father Skin cancer Social History Are you a primary veterinarian laboratory animal care to a significant other at home: No Do you presently have visiting nurse or other home services: No Alcohol intake: current Alcohol intake frequency: does not drink Patient Tobacco Use Status: Former Tobacco user Quit Date: 1989 Tobacco use type: Cigarette Years Smoked: 15 Review of Systems Const All systems reviewed & are unremarkable except as noted in HPI and below Physical Exam Extrem Other: Left shoulder: Incision clean, dry and intact. No erythema or drainage. NVI. Results Reviewed Results Reviewed: Brief Operative Note Date of Service: 10/15/23 Pre-op diagnosis: Left shoulder impingement syndrome, left shoulder acromioclavicular joint arthritis, left shoulder rotator cuff tear Post-op diagnosis: same Procedure: Left shoulder diagnostic arthroscopy with left shoulder arthroscopic distal clavicle excision, left shoulder arthroscopic acromioplasty, left shoulder mini-open rotator cuff repair Implants: One suture anchor (Webster Twinfix anchor with #2 Ultrabraid suture) Surgeon: Melvin Fields MD Assessment & Plan Assessment & Plan (1) S/P left rotator cuff repair: Code(s): Z98.890 - Other specified postprocedural states Category: Surgical Plan Sutures removed today, steri strips applied. He was given an order physical therapy to wrok on passive and active assisted ROM, periscapular stabilization, no RTC strengthening until he sees us back in [address] Fields, sooner if needed. Orders: Orders PT Evaluation and Treatment Today Z98.890 - Other specified postprocedural states Patient Instructions: Scribed for Adrienne Lorenzo PA-C, by Flex Amaro chief medical physicist, on 10/28/2023 at 11:30 AM EST. I, Adrienne Lorenzo PA-C, have personally reviewed and agree with the information entered by the scribe. Coding Level of Care Code Global (58813) Diagnoses S/P left rotator cuff repair Z98.890
== END 2023-10-28 12:27 | disposition home or self-care (01) ==
PROVIDERS: PCP Internal Medicine; Visit Provider Physician Assistant
DX: Z98.890 Other specified postprocedural states (principal)
CPT/HCPCS: 99024

== ENCOUNTER → 2023-10-28 11:29 | Outpatient (BNVA) | payer MEDICARE, SELFPAY | PROVIDERS: PCP Internal Medicine; Visit Provider Physician Assistant | DX: Z47.89 Encounter for other orthopedic aftercare (principal) | CPT/HCPCS: 99212 ==

== ENCOUNTER 2023-11-25 13:52 | Outpatient (AMB) | payer MEDICARE, SELFPAY ==
--- NOTE | 2023-11-25 13:54 | A.OFFVIS_ITS ---
Intake Visit Reasons: PO-Lt Shld RTC Repair 10/15/23 Intake Note: Giancarlo is a 68 year old male who presents for his post operative appointment s/p his left shoulder RTC repair on 10/15/23 Patient reports he is doing good, he has no pain and is still going to physical therapy. He states he needs a new order for physical therapy. Allergies lisinopril Adverse Reaction (Mild, Verified 11/25/23 13:58) Cough Medication List - Last Reconciled 11/25/23 by Melvin Fields MD aspirin (Adult Aspirin Regimen) 81 mg PO BEDTIME karthik dzr-qnu-A4-Mu-tme-iji-bor 250-40-125 mg-mg-unit (Citracal-D3 Plus Magnesium) 1 tab PO DAILY cholecalciferol (vitamin D3) (Vitamin D3) 25 mcg PO DAILY citalopram 10 mg PO BEDTIME 30 days dulaglutide (Trulicity) 4.5 mg subcut QWEEK empagliflozin (Jardiance) 25 mg PO QAM insulin glargine (Basaglar KwikPen U-100 Insulin) 20 - 22 units subcut QAM magnesium oxide 400 mg PO DAILY omeprazole 20 mg PO QAM oxycodone 10 mg (2 x 5 mg) PO Q4H PRN 1 week pramipexole 1.5 mg PO BEDTIME rosuvastatin 5 mg PO DAILY vitamins A,C,S-lufh-syviiq 4,296 mcg-226 mg-90 mg (PreserVision AREDS) 1 cap PO BID PFSH Medical History (Updated 10/26/23 @ 10:01 by Ilan Wong CNP) Osteoarthritis DVT (deep venous thrombosis) Depression RBBB (right bundle branch block) LAFB (left anterior fascicular block) Spinal stenosis Cognitive decline Elevated cholesterol GERD (gastroesophageal reflux disease) Diabetes Sleep apnea PLMD (periodic limb movement disorder) Surgical History (Updated 11/25/23 @ 13:59 by Elida Gilmore CMA) Hx of shoulder surgery (~10/15/23) History of esophagogastroduodenoscopy (EGD) H/O colonoscopy Hx of shoulder surgery History of total left hip replacement History of right hip replacement Status post right knee replacement Family History Father Skin cancer Social History (Reviewed 10/28/23 @ 11:34 by Astrid Martínez [facility]) Are you a primary patient care to a significant other at home: No Do you presently have visiting nurse or other home services: No Alcohol intake: current Alcohol intake frequency: does not drink Patient Tobacco Use Status: Former Tobacco user Quit Date: 1989 Tobacco use type: Cigarette Years Smoked: 15 Physical Exam Extrem Other: Left shoulder examination shows that the surgical incisions well healed, no erythema, almost full passive range of motion when compared to his right shoulder, minimal discomfort with range of motion, no discomfort with resisted internal or external rotation Assessment & Plan Assessment & Plan (1) S/P left rotator cuff repair: Code(s): Z98.890 - Other specified postprocedural states Category: Surgical Plan Mr. Severino continues to do well after undergoing left shoulder rotator cuff repair surgery on 10/15/2023. He will continue with his passive range of motion exercises for now. He can begin active range of motion exercises when he is 8 weeks out from surgery. The do's and don'ts of lifting were discussed at length with the patient. He will contact me prior to his follow-up appointment in 2 months should any questions or concerns arise. Feel free to call me at any time should questions regarding his orthopedic management arise. Orders: Orders PT Evaluation and Treatment Today Z98.890 - Other specified postprocedural states Coding Level of Care Code Global (66819) Diagnoses S/P left rotator cuff repair Z98.890
== END 2023-11-25 14:09 | disposition home or self-care (01) ==
PROVIDERS: PCP Internal Medicine; Visit Provider Orthopaedic Surgery
DX: Z98.890 Other specified postprocedural states (principal)
CPT/HCPCS: 99024

== ENCOUNTER → 2023-11-25 13:52 | Outpatient (BNVA) | payer MEDICARE, SELFPAY | PROVIDERS: PCP Internal Medicine; Visit Provider Orthopaedic Surgery | DX: Z47.89 Encounter for other orthopedic aftercare (principal); Z98.890 Other specified postprocedural states | CPT/HCPCS: 99212 ==

== ENCOUNTER 2024-01-25 11:41 | Outpatient (AMB) | payer MEDICARE, SELFPAY ==
--- NOTE | 2024-01-25 11:44 | A.OFFVIS_ITS ---
Intake Visit Reasons: PO-Lt Shld RTC Repair 10/15/23 Intake Note: Giancarlo is a 68 year old male who presents to the office today with complaints of mild intermittent discomfort in his left shoulder after undergoing left shoulder rotator cuff repair surgery on 10/15/2023. He continues to go to formal physical therapy at [facility]. He denies any fevers or chills. He has been working on strengthening exercises. Allergies lisinopril Adverse Reaction (Mild, Verified 01/25/24 11:45) Cough Medication List - Last Reconciled 01/25/24 by Melvin Fields MD aspirin (Adult Aspirin Regimen) 81 mg PO BEDTIME karthik ppv-jgz-M1-Ma-kqe-ojo-bor 250-40-125 mg-mg-unit (Citracal-D3 Plus Magnesium) 1 tab PO DAILY cholecalciferol (vitamin D3) (Vitamin D3) 25 mcg PO DAILY dulaglutide (Trulicity) 4.5 mg subcut QWEEK empagliflozin (Jardiance) 25 mg PO QAM insulin glargine (Basaglar KwikPen U-100 Insulin) 20 - 22 units subcut QAM magnesium oxide 400 mg PO DAILY omeprazole 20 mg PO QAM pramipexole 1.5 mg PO BEDTIME rosuvastatin 5 mg PO DAILY vitamins A,C,I-cuao-wimwzt 4,296 mcg-226 mg-90 mg (PreserVision AREDS) 1 cap PO BID PFSH Medical History (Updated 10/26/23 @ 10:01 by Ilan Wong CNP) Osteoarthritis DVT (deep venous thrombosis) Depression RBBB (right bundle branch block) LAFB (left anterior fascicular block) Spinal stenosis Cognitive decline Elevated cholesterol GERD (gastroesophageal reflux disease) Diabetes Sleep apnea PLMD (periodic limb movement disorder) Surgical History (Updated 11/25/23 @ 13:59 by Elida Gilmore CMA) Hx of shoulder surgery (~10/15/23) History of esophagogastroduodenoscopy (EGD) H/O colonoscopy Hx of shoulder surgery History of total left hip replacement History of right hip replacement Status post right knee replacement Family History Father Skin cancer Social History Are you a primary career development counselor to a significant other at home: No Do you presently have visiting nurse or other home services: No Alcohol intake: current Alcohol intake frequency: does not drink Patient Tobacco Use Status: Former Tobacco user Tobacco use type: Cigarette Years Smoked: 15 Physical Exam Const Other: Well-nourished well-developed very friendly male awake alert and oriented x3 in no acute distress Extrem Other: Bilateral upper extremity examination shows good capillary refill, no skin lesions noted, normal sensation light touch Left shoulder examination shows that the surgical incisions are well healed, no erythema, full range of motion when compared to his right shoulder, minimal discomfort with resisted forward flexion, 4+ out of 5 strength with supraspinatus testing Assessment & Plan Assessment & Plan (1) Left shoulder pain: Code(s): M25.512 - Pain in left shoulder Category: Medical Plan Mr. Severino continues to do well after undergoing left shoulder rotator cuff repair surgery on 10/15/2023. He will continue going to formal physical therapy for now. He will gradually transition to a home exercise program. The do's and don'ts of lifting were discussed at length with the patient. He will contact me prior to his follow-up appointment in 2 months should any questions or concerns arise. Feel free to call me at any time should questions regarding his orthopedic management arise. I spent 22 minutes in reviewing the patient's records and imaging studies, seeing the patient and documenting in the medical record. Coding Level of Care Code Est Pt Level 3 (99822) Diagnoses Left shoulder pain M25.512
== END 2024-01-25 12:12 | disposition home or self-care (01) ==
PROVIDERS: PCP Internal Medicine; Visit Provider Orthopaedic Surgery
DX: M25.512 Pain in left shoulder (principal)
CPT/HCPCS: 99213

== ENCOUNTER → 2024-01-25 11:41 | Outpatient (BNVA) | payer MEDICARE, SELFPAY | PROVIDERS: PCP Internal Medicine; Visit Provider Orthopaedic Surgery | DX: Z47.89 Encounter for other orthopedic aftercare (principal) | CPT/HCPCS: 99212 ==

== ENCOUNTER 2024-03-07 07:17 | Outpatient (AMB) | payer MEDICARE, SELFPAY ==
--- NOTE | 2024-03-07 07:19 | A.OFFVIS_ITS ---
Vital Signs 03/07/24 07:20 Height 5 ft 10 in Weight 208 lb 4 oz BMI 29.9 BP 142/68 H Blood Pressure Location Rt brachial Position Sitting Respiration 16 Pulse 97 Pulse Source Pulse Oximeter Pulse Oximetry (%) 100 Oxygen Delivery Method Room Air Intake Visit Reasons: 4 mnts Intake Note: Pt presents to the office for an 8 month follow up for cognitive decline. Rerecording Mixer Required: No Allergies lisinopril Adverse Reaction (Mild, Verified 03/07/24 07:20) Cough Medication List - Last Reconciled 03/07/24 by Ceci Martinez MD aspirin (Adult Aspirin Regimen) 81 mg PO BEDTIME cholecalciferol (vitamin D3) (Vitamin D3) 25 mcg PO DAILY dulaglutide (Trulicity) 4.5 mg subcut QWEEK empagliflozin (Jardiance) 25 mg PO QAM gabapentin 1-3 caps orally bedtime; insulin glargine (Basaglar KwikPen U-100 Insulin) 20 - 22 units subcut QAM omeprazole 20 mg PO QAM pramipexole 1.5 mg PO BEDTIME ropinirole 0.25 mg PO BEDTIME PRN ropinirole ER 6 mg PO BEDTIME rosuvastatin 5 mg PO DAILY turmeric mg PO vitamins A,C,X-funy-onsrci 4,296 mcg-226 mg-90 mg (PreserVision AREDS) 1 cap PO BID HPI Comments Details: 68 y/o male patient presents for follow up of cognitive impairment and sleep study.His last sleep study was in 06/26 - in lab study showed sleep efficiency of 66%.AHI 1 Average O2 93% lowest 85% PLMS with arousals 22/hr He used to be 275 lbs about 10 years ago and tested positive for sleep apnea but could not tolerate CPAP. He is on pramipexole 1mg qhs ( 5 PM)and it does not help his restless legs . He was in 1.5 mg qhs not good response. He was started on citalopram 10mg - but his restless legs syndrome worsened so he stopped. 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 [facility] Medical History (Updated 03/07/24 @ 08:13 by Ceci Martinez MD) Restless legs syndrome (RLS) Osteoarthritis DVT (deep venous thrombosis) Depression RBBB (right bundle branch block) LAFB (left anterior fascicular block) Spinal stenosis Cognitive decline Elevated cholesterol GERD (gastroesophageal reflux disease) Diabetes Sleep apnea PLMD (periodic limb movement disorder) Surgical History Hx of shoulder surgery (~10/15/23) History of esophagogastroduodenoscopy (EGD) H/O colonoscopy Hx of shoulder surgery History of total left hip replacement History of right hip replacement Status post right knee replacement Family History Father Skin cancer Social History Are you a primary rn complex care to a significant other at home: No Do you presently have visiting nurse or other home services: No Alcohol intake: current Alcohol intake frequency: does not drink Patient Tobacco Use Status: Former Tobacco user Tobacco use type: Cigarette Years Smoked: 15 Physical Exam Vital Signs: Last Vital Signs Pulse 97 03/07/24 07:20 Resp 16 03/07/24 07:20 BP 142/68 H 03/07/24 07:20 Pulse Ox 100 03/07/24 07:20 Oxygen Delivery Method Room Air 03/07/24 07:20 BMI result Body Mass Index 29.9 Const General: cooperative, healthy appearing and comfortable Nutritional Appearance: overweight Eyes Pupils: Equal, round and reactive pupils present Neuro General: gait normal, tone normal, moves all extremities and no focal motor deficits Cranial nerves: Yes Equal, round and reactive pupils present, Yes Bilaterally intact EOM present, Yes Nystagmus not present and Yes Normal facial strength present Gait exam (Neuro): Antalgic gait present Motor exam (neuro): 5/5 motor strength present throughout Assessment & Plan Assessment & Plan (1) Cognitive decline: Comment: early dementia Code(s): R41.89 - Other symptoms and signs involving cognitive functions and awareness Category: Medical (2) PLMD (periodic limb movement disorder): Code(s): G47.61 - Periodic limb movement disorder Category: Medical (3) Restless legs syndrome (RLS): Code(s): G25.81 - Restless legs syndrome Category: Medical Plan Encouraged daily exercise, vigorous walking 30 min daily. Follow up with patient safety coordinator for diabetes management. D/C parmipexole Trial requip XR 6mg qhs requip 0.25 mg 1-4tabs PRN qhs Gabapentin 100mg 1-3 caps qhs F/u Geriatrics Medications: New ropinirole ER 6 mg PO BEDTIME 30 tabs 0RF ropinirole 1-4 tabs administer 1-3 hours before bedtime 0.25 mg PO BEDTIME PRN 120 tabs 0RF restless legs gabapentin 1-3 caps orally bedtime; 90 caps 0RF Coding Level of Care Code Est Pt Level 4 (26790) Complex EM visit Add On G2211 Diagnoses Cognitive decline R41.89 PLMD (periodic limb movement disorder) G47.61 Restless legs syndrome (RLS) G25.81
[2024-03-07 07:20] VITALS: BP 142/68; PULSE 97; RESP 16; O2SAT 100; BMI 29.9
== END 2024-03-07 08:17 | disposition home or self-care (01) ==
PROVIDERS: PCP Internal Medicine; Visit Provider Psychiatry & Neurology Neurology
DX: R41.89 Other symptoms and signs involving cognitive functions and awareness (principal); G47.61 Periodic limb movement disorder; G25.81 Restless legs syndrome
CPT/HCPCS: 99214; G2211

== ENCOUNTER → 2024-03-07 07:17 | Outpatient (BNVA) | payer MEDICARE, SELFPAY | PROVIDERS: PCP Internal Medicine; Visit Provider Psychiatry & Neurology Neurology | DX: R41.89 Other symptoms and signs involving cognitive functions and awareness (principal); G47.61 Periodic limb movement disorder; G25.81 Restless legs syndrome | CPT/HCPCS: 99212 ==

== ENCOUNTER 2024-03-08 11:37 | Outpatient (AMB) | payer MEDICARE, SELFPAY ==
[2024-03-08 11:38] VITALS: BMI 29.8
--- NOTE | 2024-03-08 11:38 | MHC.OFFVIS ---
Vital Signs 03/08/24 11:38 Height 5 ft 10 in Weight 208 lb BMI 29.8 Intake Visit Reasons: OV - left Shldr RTC 10/15/23 Intake Note: Mr. Severino presents with mild intermittent discomfort in his left shoulder after undergoing left shoulder rotator cuff repair surgery on 10/15/2023. He denies any fevers or chills. Has completed formal physical therapy. He continues with his home stretching program. Allergies lisinopril Adverse Reaction (Mild, Verified 03/08/24 11:38) Cough Medication List - Last Reconciled 03/08/24 by Melvin Fields MD aspirin (Adult Aspirin Regimen) 81 mg PO BEDTIME cholecalciferol (vitamin D3) (Vitamin D3) 25 mcg PO DAILY dulaglutide (Trulicity) 4.5 mg subcut QWEEK empagliflozin (Jardiance) 25 mg PO QAM gabapentin 1-3 caps orally bedtime; insulin glargine (Basaglar KwikPen U-100 Insulin) 20 - 22 units subcut QAM omeprazole 20 mg PO QAM ropinirole 0.25 mg PO BEDTIME PRN ropinirole ER 6 mg PO BEDTIME rosuvastatin 5 mg PO DAILY turmeric mg PO vitamins A,C,Q-wnzl-mkdshv 4,296 mcg-226 mg-90 mg (PreserVision AREDS) 1 cap PO BID PFSH Medical History (Updated 03/07/24 @ 08:13 by Ceci Martinez MD) Restless legs syndrome (RLS) Osteoarthritis DVT (deep venous thrombosis) Depression RBBB (right bundle branch block) LAFB (left anterior fascicular block) Spinal stenosis Cognitive decline Elevated cholesterol GERD (gastroesophageal reflux disease) Diabetes Sleep apnea PLMD (periodic limb movement disorder) Surgical History Hx of shoulder surgery (~10/15/23) History of esophagogastroduodenoscopy (EGD) H/O colonoscopy Hx of shoulder surgery History of total left hip replacement History of right hip replacement Status post right knee replacement Family History Father Skin cancer Social History Are you a primary professional healthcare representative to a significant other at home: No Do you presently have visiting nurse or other home services: No Alcohol intake: current Alcohol intake frequency: does not drink Patient Tobacco Use Status: Former Tobacco user Tobacco use type: Cigarette Years Smoked: 15 Physical Exam Vital Signs: BMI result Body Mass Index 29.8 Const Other: Well-nourished well-developed very friendly male awake alert and oriented x3 in no acute distress Extrem Other: Bilateral upper extremity examination shows good capillary refill, no skin lesions noted, normal sensation light touch Left shoulder examination shows that the surgical incisions are well healed, no erythema, almost full range of motion when compared to his right shoulder, 4+ out of 5 strength with supraspinatus testing, minimal discomfort with resisted forward flexion Assessment & Plan Assessment & Plan (1) Left shoulder pain: Code(s): M25.512 - Pain in left shoulder Category: Medical Plan Mr. Severino continues to do well after undergoing left shoulder rotator cuff repair surgery on 10/15/2023. He will continue with his home stretching program to prevent stiffness. The do's and don'ts of lifting were discussed at length with the patient. Will contact me prior to his follow-up appointment in 3 months should any questions or concerns arise. Feel free to call me at any time should questions regarding his orthopedic management arise. I spent 20 minutes in reviewing the patient's records and imaging studies, seeing the patient and documenting in the medical record. Coding Level of Care Code Est Pt Level 3 (66409) Complex EM visit Add On G2211 Diagnoses Left shoulder pain M25.512
== END 2024-03-08 12:14 | disposition home or self-care (01) ==
PROVIDERS: PCP Internal Medicine; Visit Provider Orthopaedic Surgery
DX: M25.512 Pain in left shoulder (principal)
CPT/HCPCS: 99213; G2211

== ENCOUNTER → 2024-03-08 11:37 | Outpatient (BNVA) | payer MEDICARE, SELFPAY | PROVIDERS: PCP Internal Medicine; Visit Provider Orthopaedic Surgery | DX: M25.512 Pain in left shoulder (principal) | CPT/HCPCS: 99212 ==

== ENCOUNTER 2024-05-10 09:34 | Outpatient (REF) | payer MEDICARE, SELFPAY | END 2024-05-10 09:35 | disposition home or self-care (01) | LOC: HO.HOSX 09:34 | PROVIDERS: Visit Provider Orthopaedic Surgery | DX: M25.512 Pain in left shoulder (principal); M25.511 Pain in right shoulder | CPT/HCPCS: 73030; 99212 ==

== ENCOUNTER 2024-05-10 14:42 | Outpatient (AMB) | payer MEDICARE, SELFPAY ==
--- NOTE | 2024-05-10 14:59 | A.OFFVIS_ITS ---
Intake Visit Reasons: NewProb- RT shoulder pain Intake Note: Giancarlo is a 69 year old male who presents with complaints of progressively worsening right shoulder pain and stiffness. The patient did undergo right shoulder rotator cuff repair surgery several years ago. The patient states that his symptoms have gotten worse over the last 6 months. He has tried Tylenol and anti-inflammatory medicines which gave him minimal relief. He reports difficulty lifting his right hand above shoulder height. The patient did undergo left shoulder rotator cuff repair surgery earlier this year. He reports minimal discomfort in his left shoulder. Allergies lisinopril Adverse Reaction (Mild, Verified 05/10/24 15:03) Cough Medication List - Last Reconciled 05/10/24 by Melvin Fields MD aspirin (Adult Aspirin Regimen) 81 mg PO BEDTIME cholecalciferol (vitamin D3) (Vitamin D3) 25 mcg PO DAILY dulaglutide (Trulicity) 4.5 mg subcut QWEEK empagliflozin (Jardiance) 25 mg PO QAM gabapentin 1-3 caps orally bedtime; insulin glargine (Basaglar KwikPen U-100 Insulin) 20 - 22 units subcut QAM omeprazole 20 mg PO QAM ropinirole 0.25 mg PO BEDTIME PRN ropinirole ER 6 mg PO BEDTIME rosuvastatin 5 mg PO DAILY turmeric mg PO vitamins A,C,J-haww-rdwhmy 4,296 mcg-226 mg-90 mg (PreserVision AREDS) 1 cap PO BID PFSH Medical History (Updated 05/10/24 @ 15:21 by Melvin Fields MD) Restless legs syndrome (RLS) Osteoarthritis DVT (deep venous thrombosis) Depression RBBB (right bundle branch block) LAFB (left anterior fascicular block) Spinal stenosis Cognitive decline Elevated cholesterol GERD (gastroesophageal reflux disease) Diabetes Sleep apnea PLMD (periodic limb movement disorder) Surgical History Hx of shoulder surgery (~10/15/23) History of esophagogastroduodenoscopy (EGD) H/O colonoscopy Hx of shoulder surgery History of total left hip replacement History of right hip replacement Status post right knee replacement Family History Father Skin cancer Social History Are you a primary healthcare consulting manager to a significant other at home: No Do you presently have visiting nurse or other home services: No Alcohol intake: current Alcohol intake frequency: holidays/special occasions only Patient Tobacco Use Status: Former Tobacco user Tobacco use type: Cigarette Years Smoked: 15 Physical Exam Const Other: Well-nourished well-developed very friendly male awake alert and oriented x3 in no acute distress Extrem Other: Bilateral upper extremity examination shows good capillary refill, no skin lesions noted, normal sensation light touch Right shoulder examination shows decreased range of motion when compared to his left shoulder, 4/5 strength with supraspinatus testing, positive impingement signs, tenderness over his acromioclavicular joint, no instability Assessment & Plan Assessment & Plan (1) Bilateral shoulder pain: Code(s): M25.511 - Pain in right shoulder; M25.512 - Pain in left shoulder Category: Medical Plan Mr. Severino presents with right shoulder pain and weakness due to impingement syndrome, possible rotator cuff tearing, possible adhesive capsulitis. I had a lengthy discussion with the patient regarding the treatment options. I did give the patient a prescription to go to formal physical therapy. The do's and don'ts of lifting were discussed at length with the patient. He will contact me prior to his follow-up appointment in 2 months should any questions or concerns arise. Feel free to call me at any time should questions regarding his orthopedic management arise. I spent 21 minutes in reviewing the patient's records and imaging studies, seeing the patient and documenting in the medical record. Orders: Orders XR shoulder RT min 2V Today M25.511 - Pain in right shoulder PT Evaluation and Treatment Today M25.511 - Pain in right shoulder, M25.512 - Pain in left shoulder Coding Level of Care Code Est Pt Level 3 (05598) Complex EM visit Add On G2211 Diagnoses Bilateral shoulder pain M25.511; M25.512
== END 2024-05-10 15:21 | disposition home or self-care (01) ==
LOC: HO.HOS 14:43
PROVIDERS: PCP Internal Medicine; Visit Provider Orthopaedic Surgery
DX: M25.511 Pain in right shoulder (principal); M25.512 Pain in left shoulder
CPT/HCPCS: 99213; G2211

== ENCOUNTER 2024-06-16 18:31 | Outpatient (REF) | payer MEDICARE, SELFPAY ==
--- NOTE | ~2024-06-16 | MR_ITS ---
EXAMINATION: MR SHOULDER WITHOUT CONTRAST RIGHT CLINICAL INFORMATION: Complete rotator cuff tear or rupture of right shoulder, not specified as traumatic M 75.121. Patient unable to hold still during images, RPT'S blades. Right shoulder pain from 6-8 months, worse with movement. Reduced ROM. COMPARISON: XR Right shoulder 05/10/2024 TECHNIQUE: MRI of the shoulder without contrast was performed on a high-field scanner. FINDINGS: ROTATOR CUFF: Complete or near-complete recurrent tear of the surgically repaired supraspinatus tendon with retraction as far as the humeral head apex. Undersurface partial tearing of the distal infraspinatus tendon anteriorly. The subscapularis tendon is markedly attenuated compatible with chronic high-grade partial tearing. Moderate subscapularis and mild supraspinatus muscle atrophy. There is a longitudinal partial tear of the lateral deltoid muscle. BICEPS: The biceps tendon is completely torn and retracted. CORACOACROMIAL ARCH: The undersurface of the acromion is post acromioplasty with resection of the distal clavicle. No acute osseous abnormality. LABRUM/CAPSULE: Undersurface tearing of the posterior and superior labrum. GLENOHUMERAL JOINT/MARROW: Full-thickness cartilage loss throughout much of the superomedial humeral head and the glenoid with prominent degenerative cyst of the posterior glenoid rim and mild marrow edema. There are marginal osteophytes of the glenoid rim and the humeral head and neck junction. There is a moderate joint effusion with diffuse synovitis/debris. Degenerative cysts and marrow edema of the greater tuberosity. MR/MR shoulder RT wo con IMPRESSION: 1. Complete or near-complete recurrent tear of the supraspinatus tendon with retraction and mild muscle atrophy. 2. Undersurface partial tearing of the distal infraspinatus tendon anteriorly. 3. Chronic near-complete tearing of the subscapularis tendon with moderate muscle atrophy. 4. Completely torn and retracted biceps tendon. 5. Severe glenohumeral osteoarthritis with undersurface tearing of the posterior and superior labrum. Moderate joint effusion with diffuse synovitis/debris. 6. Longitudinal partial tear of the lateral deltoid muscle extending from the acromial origin. Electronically signed by: Devin Torre MD 06/21/2024 04:35 PM [facility]
--- OUTSIDE RECORDS SUMMARY | 2024-06-16 18:38 | XMS_ITS | Continuity of Care Document ---
Author Organization [facility] [address] [place] [address] Phone [phone] Care Team Providers Care Central Office Installer Name Role Phone Billy Washburn M.D. Care Team Information Rece iver [phone] Problems Active Problems Provider Date Deep venous thrombosis Jimmy Becker M.D. Ons et: 06/07/2023 Erectile dysfunction Jimmy Becker M.D. Onset : 06/07/2023 Hypocholesterolemia Jimmy Becker M.D. Onset: 06/07/2023 Hypogonadism Jimmy Becker M.D. Onset: 10/2022 Amnesia Jimmy Becker M.D. Onset: 10/2022 Microalbuminuria Jimmy Becker M.D. Onset: Obese class I Jimmy Becker M.D. Onset: 10/2022 Obstructive sleep apnea syndrome Jimmy Becker M.D. Onset: 06/07/2023 Type 2 diabetes mellitus Jimmy Becker M.D. O nset: 06/07/2023 Long-term current use of insulin Jimmy Becker M.D. Onset: 10/08/2023 Tachycardia Jimmy Becker M.D. Onset: 11/2023 Social History Type Date Description Comments Sex Unknown Tobacco Use Start: Unknown End: Unknown Quit ETOH Use Rarely consumes alcohol Tobacco Use Start: Unknown End: Unknown Patient is a former smoker Smoking Status Reviewed: 06/07/23 Patient is a former smoker Allergies and adverse reactions Active Allergies Criticality Reaction Severity Comments Date Lisinopril Unable to assess criticality 06/07/2023 Losartan Unable to assess criticality 06/07/2023 Medications Active Medications SIG Qnty Indications Order ing Provider Date Ejhihrgv3lu/0.5ML Solution Auto-Inject Inject 5 mg subcutaneously once a week dx: e11.9 2ml E11.Monique Castellanos M.D. 05/05/2024 Z79.4 Freestyle Lanette 3/Sensor/Glucose Monitoring [id number] Misc one sensor to skin every 14 days dx: e11.9 6units E11.Monique Castellanos M.D. 01/28/2024 Rosuvastatin Vohnsvm9iw Tablets Take 1 by mouth every day 30tabs Mirian Castellanos M.D. 01/28/2024 Basaglar [id number]/ML Solution Pen-Inject 30 units in the morning Dx: E11.9 54ml E11.9 Jimmy Becker M.D. 06/11/2023 BD Pen Needle/Margie/Ultra -Fine/32G X 4mm32G X 4 mm Misc 1 pen needle to insulin pen three times a day dx: e11.9 300units E11.9 Jimmy Becker M.D. 06/07/2023 Pramipexole Dihydrochloride0.5mg Tablets Take 3 Tablets By Mouth 2-3 Hours Before Bed Time Billy Washburn M.D. [id number] Tablets Take 1 Tablet By Mouth Every Morning Billy Washburn M.D. Trulicity4.5mg/0.5ML Solution Pen-Inject Inject 0.5 ML (4.5 MG) Subcutaneously Every 7 Days Billy Washburn M.D. [id number] Capsules Take 1-3 Capsules Orally AT Bedtime Ceci Martinez MD Vital Signs Date Vital Result Comment 05/05/2024 2:38pm BP Systolic 110 mmHg BP Diastolic 74 mmHg Height 70 inches 5'10 Weight 209.00 lb BMI (Body Mass Index) 30.0 kg/m2 Results Test Acquired Date Facility Test Result H/L [facility] [place] Laboratory test finding 05/05/2024 Inhouse Glucose Fingerstick 175 Hemoglobin A1c 8.3 Laboratory test finding 01/28/2024 Inhouse Hemoglobin A1c 8.1% Glucose Fingerstick 112 Laboratory test finding 10/08/2023 Inhouse Glucose Fingerstick 123 Laboratory test finding 08/25/2023 Inhouse Glucose Fingerstick 181 Laboratory test finding 06/07/2023 Inhouse Hemoglobin A1c 10.3% Glucose Fingerstick 301 Procedures Date Code Description Status 06/07/2023 45135 Glucose Monitori ng From Interstital Tissue Fluid Minimum 72 Hours Completed Medical Devices Description No Information Available Encounters Type Date Location Provider Dx Diagnosis Office Visit 05/05/2024 2:15p Main Office ANN MARIE Ingram E11.9 Type 2 diabet es mellitus without complications Z79.4 alf (current) use of insulin Assessments Date Code Description Provider 05/05/2024 E11.9 Type 2 diabetes mellitus wit hout complications ANN MARIE Ingram 05/05/2024 Z79.4 alf (current) use of i nsulin ANN MARIE Ingram Plan of Treatment Future Appointment(s):* 10/05/2024 1:00 pm - ANN MARIE Ingram at Main Office 05/05/2024 - ANN MARIE Ingram* E11.9 Type 2 diabetes mellitus without complications * Z79.4 alf (current) use of insulin* New Medication:* Mounjaro 5 mg/0.5ML Functional Status Description No Information Available Mental Status Description No Information Available Referrals Description No Information Available
--- OUTSIDE RECORDS SUMMARY | 2024-06-16 18:38 | XMS_ITS | Continuity of Care Document ---
Author Organization [facility] Address [address] [place] [address]- Care Team Providers Care Sole Cementer Name Role Phone Maddison RIZVI, Billy Degroot Primary Care Physician Encounter [facility] [place](s[place] 04/14/24 - 05/24/24 [facility] [address] [place] [id number] Attending Physician: Gil Henley MD Encounter Type: Pre Office Visit Allergies, Adverse Reactions, Alerts Substance Criticality Severity Reaction Reaction Severity Status lisinopril 1 Pain in both legs Active losartan 2 Pain in both legs A ctive 1leg cramps 2leg cramps Immunizations Given and Recorded Vaccine Date Status Refusal Reason zoster vaccine, inactivated 01/01/23 Recorded zoster vaccine, inactivated 08/20/22 Recorded influenza virus vaccine, inactivated 07/12/22 Martin rded SARS-CoV-2 (COVID-19) mRNA-1273 vaccine 12/02/21 R ecorded SARS-CoV-2 (COVID-19) mRNA-1273 vaccine 05/01/21 R ecorded SARS-CoV-2 (COVID-19) mRNA-1273 vaccine 09/25/20 R ecorded SARS-CoV-2 (COVID-19) mRNA-1273 vaccine 08/28/20 R ecorded Influenza Virus Vaccine (oldterm) 05/03/20 Recorde d Medications Accu-Chek Kamila Plus Test Strips See Instructions, # 100 strip(s), Refills 0, Tot. Refills 0, Maintenance, test twice daily, 4/25/191:48:00 PM EDT, Compound Start Date: 10/27/18 Status: Ordered Quantity: 100.0 Unit: strip(s) Repeat number: 1 amoxicillin 500 mg oral capsule See Instructions, 1 capsule By Mouth Daily only take for dental procedures, 0 Refills, Maintenance,08/02/23 7:15:00 AM EST, Capsule, Partial fill upon patient request if the prescription is for a schedule II opioid drug. Start Date: 08/02/23 Status: Ordered Repeat number: 1 aspirin 81 mg oral delayed release tablet 81 mg, 1, tablet, By Mouth, Daily, # 30 tablet, Refills 0, Maintenance, 09/30/23 10:32:00 AM EDT, Partial fill upon patient request if the prescription is for a schedule II opioid drug. Start Date: 09/30/23 Status: Ordered Quantity: 30.0 Unit: tablet Repeat number: 1 atorvastatin 20 mg oral tablet 1 tablet = 20 mg, By Mouth, Daily, # 30 tablet, 2 Refills, Maintenance, 04/03/24 3:37:00 PM EDT, Tablet, [facility]/pharmacy #[id number], Partial fill upon patient request if the prescription is for a schedule II opioid drug., 178, cm, 04/03/24 14:50:00 EDT, Height Start Date: 04/03/24 Status: Ordered Quantity: 30.0 Unit: tablet Repeat number: 3 Basaglar KwikPen 100 units/mL subcutaneous solution = 20 units, Subcutaneous Injection, Daily, # 15 mL, 0 Refills, Maintenance, 09/30/23 10:41:00 AM EDT, Injection, Partial fill upon patient request if the prescription is for a schedule II opioid drug. Start Date: 09/30/23 Status: Ordered Quantity: 15.0 Unit: mL Repeat number: 1 BD VAHE 2 GEN PEN NDL 32G 4MM BD VAHE 2 GEN PEN NDL 32G 4MM, 0 Refills, Maintenance, 06/24/23 11:36:00 AM EST Start Date: 06/24/23 Status: Ordered Repeat number: 1 CeleXA 10 mg oral tablet 10 mg, 1, tablet, By Mouth, Daily, # 30 tablet, Refills 1, Tot. Refills 1, Maintenance, 02/28/24 5:28:00 PM EDT, Route to Pharmacy Electronically, [facility]/pharmacy #[id number], Partial fill upon patient requestif the prescription is for a schedule II opioid drug., 178, cm, 02/28/24 16:42:00 EDT, Height Start Date: 02/28/24 Status: Ordered Quantity: 30.0 Unit: tablet Repeat number: 2 Cialis 5 mg oral tablet 1 tablet = 5 mg, By Mouth, Daily, 1 hour before sexual activity, # 5 tablet, 3 Refills, Maintenance, 04/06/22 1:31:00 PM EDT, Tablet, [facility]/pharmacy #[id number], Partial fill upon patient request if the prescription is for a schedule II opioid drug., 178, cm, 04/06/22 13:02:00 EDT, Height, 91.6, kg, 06/26/21 17:00:00 EST, Dry Weight Start Date: 04/06/22 Status: Ordered Quantity: 5.0 Unit: tablet Repeat number: 4 Flax 0 Refills, Maintenance, 12/14/18 9:31:11 AM EDT Start Date: 12/14/18 Status: Ordered Repeat number: 1 Freestyle Lite Test Strips See Instructions, # 100 each, Refills 5, Tot. Refills 5, Maintenance, use 1 test strip via meter twice a day for DMII E11.9, 12/20/23 5:39:00 PM EDT, Compound, 178, cm, 11/26/23 15:09:00 EDT, Height Start Date: 12/20/23 Status: Ordered Quantity: 100.0 Unit: each Repeat number: 6 gabapentin 100 mg oral capsule TAKE 1 TO 3 CAPS BY MOUTH ATBEDTIME. Start Date: 03/31/24 Status: Ordered Repeat number: 1 Jardiance 25 mg oral tablet 1 tablet, By Mouth, Daily in AM, # 90 tablet, 0 Refills, Maintenance, 04/18/24 10:29:00 AM EDT, [id number], 178, cm, 04/03/24 14:50:00 EDT, Height Start Date: 04/18/24 Status: Ordered Quantity: 90.0 Unit: tablet Repeat number: 1 Magnesium Citrate By Mouth, 0 Refills, Maintenance, 09/30/23 10:32:00 AM EDT, Partial fill upon patient request if theprescription is for a schedule II opioid drug. Start Date: 09/30/23 Status: Ordered Repeat number: 1 Omeprazole By Mouth, Daily, one daily, 0 Refills, Maintenance, 09/10/20 4:31:00 PM EST, Partial fill upon patient request if the prescription is for a schedule II opioid drug. Start Date: 09/10/20 Status: Ordered Repeat number: 1 pramipexole 0.5 mg oral tablet See Instructions, TAKE 3 TABLETS BY MOUTH 2-3 HOURS BEFORE BED TIME, # 270 each, 3 Refills, Maintenance, 05/10/23 9:30:00 AM EST, [facility]/pharmacy #[id number], 178, cm, 04/20/23 13:03:00 EDT, Height, 91.6, kg, 06/26/21 17:00:00 EST, Dry Weight Start Date: 05/10/23 Status: Ordered Quantity: 270.0 Unit: each Repeat number: 4 PreserVision AREDS 2 1 capsule, By Mouth, Daily, 0 Refills, Maintenance, 12/14/18 9:29:34 AM EDT Start Date: 12/14/18 Status: Ordered Repeat number: 1 rOPINIRole 0.25 mg oral tablet PLEASE SEE ATTACHED FOR DETAILED DIRECTIONS Start Date: 03/31/24 Status: Ordered Repeat number: 1 rosuvastatin 5 mg oral tablet 1 tablet, By Mouth, Daily, # 90 tablet, 3 Refills, Maintenance, 05/16/24 8:16:00 AM EST, [facility]/pharmacy #[id number], 178, cm, 04/03/24 14:50:00 EDT, Height Start Date: 05/16/24 Status: Ordered Quantity: 90.0 Unit: tablet Repeat number: 4 Trulicity Pen 4.5 mg/0.5 mL subcutaneous solution See Instructions, INJECT 1 PEN SUBCUTANEOUSLY ONCE EVERY 7 DAYS, # 6 Unknown, 0 Refills, Maintenance, 04/18/24 10:28:00 AM EDT, [facility], 178, cm, 04/03/24 14:50:00 EDT, Height Start Date: 04/18/24 Status: Ordered Quantity: 6.0 Unit: Unknown Repeat number: 1 Viagra 100 mg oral tablet See Instructions, 1 hour before sexual activity, # 30 each, 3 Refills, Maintenance, 08/05/21 11:52:00AM EST, Tablet, [facility]/pharmacy #[id number], 178, cm, 08/05/21 11:25:00 EST, Height, 91.6, kg, 06/26/21 17:00:00 EST, Dry Weight Start Date: 08/05/21 Status: Ordered Quantity: 30.0 Unit: each Repeat number: 4 Vitamin B12 0 Refills, Maintenance, 06/24/23 11:36:00 AM EST, Partial fill upon patient request if the prescription is for a schedule II opioid drug. Start Date: 06/24/23 Status: Ordered Repeat number: 1 Vitamin D3 1000 intl units oral capsule 1 capsule = 25 mcg, By Mouth, Daily, # 100 capsule, 0 Refills, Maintenance, 09/30/23 10:32:00 AM EDT, Capsule, Partial fill upon patient request if the prescription is for a schedule II opioid drug. Start Date: 09/30/23 Status: Ordered Quantity: 100.0 Unit: capsule Repeat number: 1 Vitamin D3 oral tablet 1 tablet = 10 mcg, By Mouth, Daily, 0 Refills, Maintenance, 06/24/23 11:36:00 AM EST, Partial fill upon patient request if the prescription is for a schedule II opioid drug. Start Date: 06/24/23 Status: Ordered Repeat number: 1 Voltaren 1% topical gel = 2 Gm, Topically, 4 times a day, PRN Pain , Moderate, # 100 Gm, 2 Refills, Maintenance, 10/14/21 9:28:00 AM EDT, [facility]/pharmacy #[id number], Partial fill upon patient request if the prescription is for a schedule II opioid drug., 2 Gm Topically 4 times a day,PRN:Pain , Moderate, 178, cm, 10/14/21 8:54:00 EDT, Height, 91.6, kg, 06/26/21 17:00:00 EST, Dry Weight Start Date: 10/14/21 Status: Ordered Quantity: 100.0 Unit: g Repeat number: 3 Problem List Condition Confirmation Course Effective Dates Status Health Status Informant Allergic rhinitis Confirmed Active Memory loss Confirmed Active Benign polyp of colon Confirmed Active Thigh cramp Confirmed Active DVT (deep venous thrombosis) Confirmed Active Hypogonadotropic hypogonadism Confirmed Active ED (erectile dysfunction) Confirmed Active Left subscapular pain Confirmed Active Hamstring strain Confirmed Active Arthralgia of hand Confirmed Active Hypercholesterolemia Confirmed Active MCI (mild cognitive impairment) Confirmed Active Claudication Confirmed Active 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 Hypogonadism male Confirmed Active Microalbuminuria Confirmed Active Neck pain Confirmed Active Obstructive sleep apnea Confirmed Active Orthostatic hypotension Confirmed Active Pain of right calf Confirmed Active Periodic limb movement disorder Confirmed Active Peripheral nerve disease Confirmed Active RLS (restless legs syndrome) Confirmed Active RBBB Confirmed Active Shoulder pain Confirmed Active Sinus tachycardia Confirmed Active Spinal stenosis Confirmed Active Lumbar canal stenosis Confirmed Active Type 2 diabetes mellitus Confirmed Active Social History Social History Type Response Smoking Status Cigars or pipes but not daily within last 30 days entered on: 03/31/24 Sex Sex Representation Male (finding) Patient Care team information Care Team Personnel Name: Maddison RIZVI, Billy Degroot Position: [facility] Physician - Primary Care Member Role: PCP Address: [address] [place] [address] Telecom: Name: Tri Tong RN Position: [facility] RN Member Role: Primary Care Nurse Name: Leola Blair RN Position: [facility] RN Member Role: Primary Care Nurse Care Team Related Persons Name: GELA PATEL Name: REBECCA MORROW Insurance Providers Guarantor name: KRISTOFER MORROW Health Plan Information #: 2 Payer: MEDEX Member Number: [id number] Policy Number: NA Group Number: NA Health Plan Information #: 1 Payer: MEDICARE PART B OUTPT Member Number: [id number] Policy Number: NA Group Number: NA
--- OUTSIDE RECORDS SUMMARY | 2024-06-16 18:38 | XMS_ITS | Continuity of Care Document ---
Author Organization [facility] Address [address] [place] [id number]- Care Team Providers Care Seating And Mobility Technologist Name Role Phone Maddison RIZVI, Billy Degroot Primary Care Physician [phone] Encounter 05/18/24 - 05/19/[address] [address] Attending Physician: Not on Staff, Attending MD Referring Physician: Not on Staff, Referring MD Encounter Type: [facility] Allergies, Adverse Reactions, Alerts Substance Criticality Severity [...] Tot. Refills 0, Maintenance, test twice daily, :48:00 PM EDT, Compound Start Date: 10/27/18 Status: [...] Refills, Maintenance, 04/03/24 3:37:00 PM EDT, Tablet, [facility]/pharmacy #[id number], Partial fill upon patient request if [...] 5:28:00 PM EDT, Route to Pharmacy Electronically, [facility]/pharmacy #[id number], Partial fill upon patient requestif the prescription is for a schedule II opioid drug., 178, cm, 02/28/24 16:42:00 EDT, Height Start Date: 02/28/24 Status: Ordered Quantity: 30.0 Unit: tablet Repeat number: 2 Cialis 5 mg oral tablet 1 tablet = 5 mg, By Mouth, Daily, 1 hour before sexual activity, # 5 tablet, 3 Refills, Maintenance, 04/06/22 1:31:00 PM EDT, Tablet, [facility]/pharmacy #[id number], Partial fill upon patient request if [...] Refills, Maintenance, 04/18/24 10:29:00 AM EDT, [facility], 178, cm, 04/03/24 14:50:00 EDT, Height Start [...] 3 Refills, Maintenance, 05/10/23 9:30:00 AM EST, [facility]/pharmacy #0084, 178, cm, 04/20/23 13:03:00 EDT, Height, [...] 3 Refills, Maintenance, 05/16/24 8:16:00 AM EST, [facility]/pharmacy #0084, 178, cm, 04/03/24 14:50:00 EDT, Height Start Date: 05/16/24 Status: Ordered Quantity: 90.0 Unit: tablet Repeat number: 4 Trulicity Pen 4.5 mg/0.5 mL subcutaneous solution See Instructions, INJECT 1 PEN SUBCUTANEOUSLY ONCE EVERY 7 DAYS, # 6 Unknown, 0 Refills, Maintenance, 04/18/24 10:28:00 AM EDT, [facility], 178, cm, 04/03/24 14:50:00 EDT, Height Start Date: 04/18/24 Status: Ordered Quantity: 6.0 Unit: Unknown Repeat number: 1 Viagra 100 mg oral tablet See Instructions, 1 hour before sexual activity, # 30 each, 3 Refills, Maintenance, 08/05/21 11:52:00AM EST, Tablet, [facility]/pharmacy #0084, 178, cm, 08/05/21 11:25:00 EST, Height, [...] 2 Refills, Maintenance, 10/14/21 9:28:00 AM EDT, [facility]/pharmacy #[id number], Partial fill upon patient request if [...] Active Type 2 diabetes mellitus Confirmed Active Results Radiology Reports * Exam Date Time Procedure Performing Provider Status 05/18/24 3:[address] PET Neuraceq Brain Imaging Auth (Verified) Notes: (CT PET Neuraceq Brain Imaging) Reason For Exam: initial staging G30.9;initial staging G30.9 RESULT: CT PET Neuraceq Brain Imaging [facility] PET/CT Imaging VISIT NUMBER :[id number] Patient Name: Giancarlo Morrow Date of : 1955 Date of Exam: 05-18-2024 Referring Physician: Gil Henley [address] [place] [address] [address] [address] Exam: PT Neuraceq Brain Imaging CPT 84990 Room Description: [facility] Pt4 EXAMINATION: PET Neuraceq Brain Imaging INDICATION: initial staging G30.9 assessment of potential memory and cognitive defects COMPARISON: Brain MRI 02/24/2022 [facility] TECHNIQUE: A PET scan of the brain was performed using 3-D acquisition approximately 30 to 50 minutes following the intravenous administration of 8.19 mCi of Neuraceq ([id number]). Image reconstruction was performed in the transaxial, coronal, and sagittal planes. CT scan of the brain was performed for attenuation correction. The CT scan was performed with low-dose and without intravenous contrast and therefore is not diagnostic quality. FINDINGS: Symmetric radiotracer activity is noted throughout the white matter, with preservation of the le-white matter contrast. Tracer uptake in le matter is lower than white matter in all brain regions. IMPRESSION: Negative Neuraceq scan, indicating sparse to no amyloid neuritic plaques. Electronically Signed By: Berny Gaitan MD Dictated By: Not on Staff , SUDHEER RIZVI Dictated Date/Time: 05/19/24 1:19 pm Reviewed By: Not on Staff , SUDHEER RIZVI Signed By: Not on Staff , SUDHEER RIZVI Signed Date/Time: 05/19/24 1:19 pm Transcribed By: VICENTE Transcribed Date/Time: 05/19/24 1:19 pm Social History Social History Type Response Smoking Status Cigars or pipes but not daily within last 30 days entered on: 03/31/24 Sex Sex Representation Male (finding) Patient Care team information Care Team Personnel Name: Maddison RIZVI, Billy Degroot Position: [facility] Physician - Primary Care Member Role: PCP Address: [address] [place] [address] Telecom: Name: Tri Tong RN Position: [facility] RN Member Role: Primary Care Nurse Name: Leola Blair RN Position: [facility] RN Member Role: Primary Care Nurse Care Team Related Persons Name: GELA PATEL Name: REBECCA MORROW Insurance Providers Guarantor name: GIANCARLO MORROW Health Plan Information #: 1 Payer: MEDICARE PART B OUTPT Member Number: NA Policy Number: NA Group Number: NA Health Plan Information #: 2 Payer: MEDEX Member Number: NA Policy Number: NA Group Number: NA
--- OUTSIDE RECORDS SUMMARY | 2024-06-16 18:38 | XMS_ITS | Continuity of Care Document ---
Author Organization [facility] Address [address] [place] [address]- Care Team Providers Care Beamster Name Role Phone Maddison RIZVI, Billy Degroot Primary Care Physician En[place] [facility] [place](s): 04/26/24 - 05/26/24 [facility] [address] [place], [place] [address] Encounter Type: Triage Allergies, Adverse Reactions, Alerts Substance Criticality Severity [...] Refills, Maintenance, 04/03/24 3:37:00 PM EDT, Tablet, [facility]/pharmacy #[id number], Partial fill upon patient request [...] 5:28:00 PM EDT, Route to Pharmacy Electronically, [facility]/pharmacy #[id number], Partial fill upon patient requestif the prescription is for a schedule II opioid drug., 178, cm, 02/28/24 16:42:00 EDT, Height Start Date: 02/28/24 Status: Ordered Quantity: 30.0 Unit: tablet Repeat number: 2 Cialis 5 mg oral tablet 1 tablet = 5 mg, By Mouth, Daily, 1 hour before sexual activity, # 5 tablet, 3 Refills, Maintenance, 04/06/22 1:31:00 PM EDT, Tablet, [facility]/pharmacy #0084, Partial fill upon patient request [...] Refills, Maintenance, 04/18/24 10:29:00 AM EDT, [facility], 178, cm, 04/03/24 14:50:00 EDT, Height Start [...] 3 Refills, Maintenance, 05/10/23 9:30:00 AM EST, [facility]/pharmacy #0084, 178, cm, 04/20/23 13:03:00 EDT, [...] 3 Refills, Maintenance, 05/16/24 8:16:00 AM EST, [facility]/pharmacy #0084, 178, cm, 04/03/24 14:50:00 EDT, Height Start Date: 05/16/24 Status: Ordered Quantity: 90.0 Unit: tablet Repeat number: 4 Trulicity Pen 4.5 mg/0.5 mL subcutaneous solution See Instructions, INJECT 1 PEN SUBCUTANEOUSLY ONCE EVERY 7 DAYS, # 6 Unknown, 0 Refills, Maintenance, 04/18/24 10:28:00 AM EDT, [facility], 178, cm, 04/03/24 14:50:00 EDT, Height Start Date: 04/18/24 Status: Ordered Quantity: 6.0 Unit: Unknown Repeat number: 1 Viagra 100 mg oral tablet See Instructions, 1 hour before sexual activity, # 30 each, 3 Refills, Maintenance, 08/05/21 11:52:00AM EST, Tablet, [facility]/pharmacy #0084, 178, cm, 08/05/21 11:25:00 EST, [...] 2 Refills, Maintenance, 10/14/21 9:28:00 AM EDT, [facility]/pharmacy #0084, Partial fill upon patient request [...] Personnel Name: Maddison RIZVI, Billy Degroot Position: [facility] Physician - Primary Care Member Role: PCP Address: [address] [place] [address] Telecom: Name: Tri Tong RN Position: [facility] RN Member Role: Primary Care Nurse Name: Leola Blair RN Position: [facility] RN Member Role: Primary Care Nurse Care Team Related Persons Name: GELA PATEL Name: REBECCA MORROW Insurance Providers Guarantor name: KRISTOFER MORROW Health Plan Information #: 1 Payer: MEDICARE PART B OUTPT Member Number: NA Policy Number: NA Group Number: NA Health Plan Information #: 2 Payer: MEDEX Member Number: NA Policy Number: NA Group Number: NA
--- OUTSIDE RECORDS SUMMARY | 2024-06-16 18:38 | XMS_ITS | Continuity of Care Document ---
Author Organization [facility] Address [address] [place] [address]- Care Team Providers Care Central Scheduler Name Role Phone Maddison RIZVI, Billy Degroot Primary Care Physician [phone] Encounter [facility] Date(s): 04/24/24 - 05/24/[address] [address] Attending Physician: Admtr, Ar8 Admitting Physician: Admtr, Ar8 Referring Physician: Admtr, Ar8 Encounter Type: Triage Allergies, Adverse Reactions, Alerts [...] Refills, Maintenance, 04/03/24 3:37:00 PM EDT, Tablet, [facility]/pharmacy #[id number], Partial fill upon patient request if [...] 5:28:00 PM EDT, Route to Pharmacy Electronically, [facility]/pharmacy #[id number], Partial fill upon patient requestif the prescription is for a schedule II opioid drug., 178, cm, 02/28/24 16:42:00 EDT, Height Start Date: 02/28/24 Status: Ordered Quantity: 30.0 Unit: tablet Repeat number: 2 Cialis 5 mg oral tablet 1 tablet = 5 mg, By Mouth, Daily, 1 hour before sexual activity, # 5 tablet, 3 Refills, Maintenance, 04/06/22 1:31:00 PM EDT, Tablet, [facility]/pharmacy #0084, Partial fill upon patient request if [...] Refills, Maintenance, 04/18/24 10:29:00 AM EDT, [facility], 178, cm, 04/03/24 14:50:00 EDT, Height Start [...] 3 Refills, Maintenance, 05/10/23 9:30:00 AM EST, [facility]/pharmacy #0084, 178, cm, 04/20/23 13:03:00 EDT, Height, [...] 3 Refills, Maintenance, 05/16/24 8:16:00 AM EST, [facility]/pharmacy #0084, 178, cm, 04/03/24 14:50:00 EDT, Height Start Date: 05/16/24 Status: Ordered Quantity: 90.0 Unit: tablet Repeat number: 4 Trulicity Pen 4.5 mg/0.5 mL subcutaneous solution See Instructions, INJECT 1 PEN SUBCUTANEOUSLY ONCE EVERY 7 DAYS, # 6 Unknown, 0 Refills, Maintenance, 04/18/24 10:28:00 AM EDT, [facility], 178, cm, 04/03/24 14:50:00 EDT, Height Start Date: 04/18/24 Status: Ordered Quantity: 6.0 Unit: Unknown Repeat number: 1 Viagra 100 mg oral tablet See Instructions, 1 hour before sexual activity, # 30 each, 3 Refills, Maintenance, 08/05/21 11:52:00AM EST, Tablet, [facility]/pharmacy #0084, 178, cm, 08/05/21 11:25:00 EST, Height, [...] 2 Refills, Maintenance, 10/14/21 9:28:00 AM EDT, [facility]/pharmacy #0084, Partial fill upon patient request if [...] Personnel Name: Maddison RIZVI, Billy Degroot Position: [facility] Physician - Primary Care Member Role: PCP Address: [address] [place] [id number] Telecom: Name: Tri Tong RN Position: S RN Member Role: Primary Care Nurse Name: Leola Blair RN Position: [facility] RN Member Role: Primary Care Nurse Care [...]
== END 2024-06-16 18:32 | disposition home or self-care (01) ==
LOC: HO.MRI 18:31
PROVIDERS: PCP Internal Medicine; Visit Provider Orthopaedic Surgery
DX: M75.121 Complete rotator cuff tear or rupture of right shoulder, not specified as traumatic (principal)
CPT/HCPCS: 73221

== ENCOUNTER 2024-06-26 13:19 | Outpatient (AMB) | payer MEDICARE, SELFPAY ==
--- OUTSIDE RECORDS SUMMARY | 2024-06-26 13:21 | XMS_ITS | Continuity of Care Document ---
Author Organization [facility] [address] [place] [address] Phone [phone] Care Team Providers Care Supervisor Grips Name Role Phone Billy Washburn M.D. Care Team Information Rece iver [phone] Problems Active Problems Provider Date Deep venous [...] SIG Qnty Indications Order ing Provider Date Dinylvri6yg/0.5ML Solution Auto-Inject Inject 5 mg subcutaneously once a week dx: e11.9 2ml E11Marycruz Castellanos M.D. 05/05/2024 Z79.4 Freestyle Lanette 3/Sensor/Glucose Monitoring [id number] Misc one sensor to skin every 14 days dx: e11.9 6units E11Marycruz Castellanos M.D. 01/28/2024 Rosuvastatin Emhggkx7nw Tablets Take 1 by mouth every day 30tabs Mirian Castellanos M.D. 01/28/2024 Basaglar Tqlkgke178Tmlu/ML Solution Pen-Inject 30 units in the morning Dx: E11.9 54ml E11Marycruz Castellanos M.D. 06/11/2023 BD Pen Needle/Margie/Ultra -Fine/32G X 4mm32G X 4 mm Misc 1 pen needle to insulin pen three times a day dx: e11.9 300units E11Marycruz Castellanos M.D. 06/07/2023 Pramipexole Dihydrochloride0.5mg Tablets Take 3 Tablets By Mouth 2-3 Hours Before Bed Time Billy Washburn M.D. Cfsgedqlc22jj Tablets Take 1 Tablet By Mouth Every Morning Billy Washburn M.D. Trulicity4.5mg/0.5ML Solution Pen-Inject Inject 0.5 ML (4.5 MG) Subcutaneously Every 7 Days Billy Washburn M.D. Sfkffyuuxb151vl Capsules Take 1-3 Capsules Orally AT Bedtime [...] 301 Procedures Date Code Description Status 06/07/2023 73665 Glucose Monitori ng From Interstital Tissue Fluid Minimum 72 Hours Completed Medical Devices Description No Information Available Encounters Type Date Location Provider Dx Diagnosis Office Visit 05/05/2024 2:15p Main Office ANN MARIE Ingram E11.9 Type 2 diabet es mellitus without complications Z79.4 halfway (current) use of insulin Assessments Date Code Description Provider 05/05/2024 E11.9 Type 2 diabetes mellitus wit hout complications ANN MARIE Ingram 05/05/2024 Z79.4 halfway (current) use of i nsulin ANN MARIE Ingram Plan of Treatment Future Appointment(s):* 10/05/2024 1:00 pm - ANN MARIE Ingram at Main Office 05/05/2024 - ANN MARIE Ingram* E11.9 Type 2 diabetes mellitus without complications * 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
--- NOTE | 2024-06-26 13:37 | MHC.OFFVIS ---
Vital Signs 06/26/24 13:38 Height 5 ft 10 in Weight 208 lb BMI 29.8 Intake Visit Reasons: Right shoulder pain and weakness Intake Note: Giancarlo is a 69 year old male who presents with complaints of progressively worsening right shoulder pain and weakness. The patient did undergo right shoulder rotator cuff repair surgery several years ago. The patient states that his symptoms have gotten worse over the last 6 months. He has tried Tylenol and anti-inflammatory medicines which gave him minimal relief. He reports difficulty lifting his right hand above shoulder height. The patient did undergo left shoulder rotator cuff repair surgery earlier this year. He reports minimal discomfort in his left shoulder. He has done physical therapy exercises which aggravated his right shoulder pain. Accompanied by: Spouse Allergies lisinopril Adverse Reaction (Mild, Verified 06/26/24 13:38) Cough Medication List - Last Reconciled 06/27/24 by Melvin Fields MD aspirin (Adult Aspirin Regimen) 81 mg PO BEDTIME cholecalciferol (vitamin D3) (Vitamin D3) 25 mcg PO DAILY dulaglutide (Trulicity) 4.5 mg subcut QWEEK empagliflozin (Jardiance) 25 mg PO QAM gabapentin 600 mg (6 x 100 mg) PO BEDTIME insulin glargine (Basaglar KwikPen U-100 Insulin) 20 - 22 units subcut QAM omeprazole 20 mg PO QAM ropinirole 0.25 mg PO BEDTIME PRN ropinirole ER 8 mg (2 x 4 mg) PO BEDTIME rosuvastatin 5 mg PO DAILY turmeric mg PO vitamins A,C,C-oxts-uybika 4,296 mcg-226 mg-90 mg (PreserVision AREDS) 1 cap PO BID PFSH Medical History Restless legs syndrome (RLS) Osteoarthritis DVT (deep venous thrombosis) Depression RBBB (right bundle branch block) LAFB (left anterior fascicular block) Spinal stenosis Cognitive decline Elevated cholesterol GERD (gastroesophageal reflux disease) Diabetes Sleep apnea PLMD (periodic limb movement disorder) Surgical History Hx of shoulder surgery (~10/15/23) History of esophagogastroduodenoscopy (EGD) H/O colonoscopy Hx of shoulder surgery History of total left hip replacement History of right hip replacement Status post right knee replacement Family History Father Skin cancer Social History Are you a primary wound care center consultant to a significant other at home: No Do you presently have visiting nurse or other home services: No Alcohol intake: current Alcohol intake frequency: holidays/special occasions only Patient Tobacco Use Status: Former Tobacco user Tobacco use type: Cigarette Years Smoked: 15 Physical Exam Vital Signs: BMI result Body Mass Index 29.8 Const Other: Well-nourished well-developed very friendly male awake alert and oriented x3 in no acute distress Extrem Other: Bilateral upper extremity examination shows good capillary refill, no skin lesions noted, normal sensation light touch Right shoulder examination shows decreased range of motion when compared to his left shoulder, 4/5 strength with supraspinatus testing, positive impingement signs, tenderness over his acromioclavicular joint, no instability Results Reviewed Results Reviewed: MRI of the patient's right shoulder shows severe acromioclavicular joint narrowing, a type 2 acromion, a full-thickness recurrent supraspinatus tendon tear Assessment & Plan Assessment & Plan (1) Rotator cuff insufficiency of right shoulder: Code(s): M25.311 - Other instability, right shoulder Category: Medical Plan Mr. Severino presents with recurrent right shoulder pain and weakness due to impingement syndrome, acromioclavicular joint arthritis and a full-thickness recurrent rotator cuff tear. I had a lengthy discussion with the patient regarding the treatment options. At this point he has failed continued non operative treatments. The risks and benefits of right shoulder surgery were discussed at length with the patient. The patient wishes to proceed with surgery. Surgery will most likely involve right shoulder diagnostic arthroscopy with distal clavicle excision, acromioplasty and revision rotator cuff repair. The patient will contact my office to pick a surgery date. He will follow-up as instructed. Feel free to call me at any time should questions regarding his orthopedic management arise. I spent 21 minutes in reviewing the patient's records and imaging studies, seeing the patient and documenting in the medical record. Coding Level of Care Code Est Pt Level 3 (74800) Complex EM visit Add On G2211 Diagnoses Rotator cuff insufficiency of right shoulder M25.311
[2024-06-26 13:38] VITALS: BMI 29.8
== END 2024-06-26 14:07 | disposition home or self-care (01) ==
PROVIDERS: PCP Internal Medicine; Visit Provider Orthopaedic Surgery
DX: M25.311 Other instability, right shoulder (principal)
CPT/HCPCS: 99213; G2211

== ENCOUNTER → 2024-06-26 13:19 | Outpatient (BNVA) | payer MEDICARE, SELFPAY | PROVIDERS: PCP Internal Medicine; Visit Provider Orthopaedic Surgery | DX: M25.311 Other instability, right shoulder (principal) | CPT/HCPCS: 99212 ==

== ENCOUNTER 2024-07-20 12:36 | Outpatient (REF) | payer MEDICARE, SELFPAY ==
[2024-07-20 14:45] LABS: Carbon Monoxide Refer to POC result
[2024-07-20 14:52] LABS: Carbon Monoxide POC 7.3 %
== END 2024-07-20 12:37 | disposition home or self-care (01) ==
LOC: HO.WFDLDS 12:36
PROVIDERS: Visit Provider Internal Medicine
DX: D75.1 Secondary polycythemia (principal)
CPT/HCPCS: 36415; 82375

== ENCOUNTER → 2024-10-12 11:10 | Outpatient (BNV) | payer MEDICARE, SELFPAY | PROVIDERS: PCP Internal Medicine; Visit Provider Internal Medicine Cardiovascular Disease | DX: I45.10 Unspecified right bundle-branch block (principal) | CPT/HCPCS: 93010 ==

== ENCOUNTER 2024-10-19 14:03 | Outpatient (AMB) | payer MEDICARE, SELFPAY ==
[2024-10-19 14:10] VITALS: BMI 29.8
--- NOTE | 2024-10-19 14:10 | MHC.OFFVIS ---
Vital Signs 10/19/24 14:10 Height 5 ft 10 in Weight 208 lb BMI 29.8 Intake Visit Reasons: Right shoulder pain and weakness Intake Note: Giancarlo is a 69 year old male who presents with complaints of progressively worsening right shoulder pain and weakness. The patient did undergo right shoulder rotator cuff repair surgery several years ago. The patient states that his symptoms have gotten worse over the last 6 months. He has tried Tylenol and anti-inflammatory medicines which gave him minimal relief. He reports difficulty lifting his right hand above shoulder height. The patient did undergo left shoulder rotator cuff repair surgery earlier this year. He reports minimal discomfort in his left shoulder. He has done physical therapy exercises which aggravated his right shoulder pain. Allergies losartan Allergy (Verified 10/19/24 14:11) Unknown lisinopril Adverse Reaction (Mild, Verified 10/19/24 14:11) Cough Medication List - Last Reconciled 10/19/24 by Melvin Fields MD atorvastatin 20 mg PO BEDTIME cholecalciferol (vitamin D3) (Vitamin D3) 25 mcg PO DAILY cyanocobalamin (vitamin B-12) (Vitamin B-12) 50 mcg PO DAILY empagliflozin (Jardiance) 25 mg PO QAM gabapentin 100 mg PO BEDTIME insulin glargine (Basaglar KwikPen U-100 Insulin) 30 units subcut QAM magnesium glycinate 200 mg PO DAILY omeprazole 20 mg PO QAM PRN ropinirole 0.5 - 1 mg PO BEDTIME sertraline 25 mg PO BEDTIME tirzepatide (Mounjaro) 7.5 mg subcut QWEEK turmeric 400 mg PO DAILY vit C,C-Hy-eexbj-lutein-zeaxan 250-90-40-1 mg (PreserVision AREDS-2) 1 tab PO DAILY PFSH Medical History Heartburn Sinus tachycardia Shoulder pain RBBB (right bundle branch block with left anterior fascicular block) Orthostatic hypotension Neck pain Microalbuminuria Memory loss MCI (mild cognitive impairment) Lumbar canal stenosis Hypogonadotropic hypogonadism Hypogonadism male Erectile dysfunction Claudication Arthralgia of hand Allergic rhinitis Restless legs syndrome (RLS) Osteoarthritis DVT (deep venous thrombosis) Depression RBBB (right bundle branch block) LAFB (left anterior fascicular block) Spinal stenosis Cognitive decline Elevated cholesterol GERD (gastroesophageal reflux disease) Diabetes Sleep apnea PLMD (periodic limb movement disorder) Surgical History History of vasectomy Hx of shoulder surgery (~10/15/23) History of esophagogastroduodenoscopy (EGD) H/O colonoscopy Hx of shoulder surgery History of total left hip replacement History of right hip replacement Status post right knee replacement Family History Father Skin cancer Social History Are you a primary healthcare corporate account director to a significant other at home: No Do you presently have visiting nurse or other home services: No Alcohol intake: current Alcohol intake frequency: holidays/special occasions only Patient Tobacco Use Status: Current someday Tobacco user Tobacco use type: Cigar Years Smoked: 15 Physical Exam Vital Signs: BMI result Body Mass Index 29.8 Const Other: Well-nourished well-developed very friendly male awake alert and oriented x3 in no acute distress Extrem Other: Right shoulder examination shows decreased range of motion when compared to his left shoulder, 4/5 strength with supraspinatus testing, positive impingement signs, tenderness over his acromioclavicular joint, no instability Results Reviewed Results Reviewed: MRI of the patient's right shoulder shows severe acromioclavicular joint narrowing, a type 2 acromion, a full-thickness tear of the supraspinatus tendon Assessment & Plan Assessment & Plan (1) Rotator cuff insufficiency of right shoulder: Code(s): M25.311 - Other instability, right shoulder Category: Medical Plan Mr. Severino presents with right shoulder pain and weakness due to impingement syndrome, acromioclavicular joint arthritis and a recurrent full-thickness rotator cuff tear. I had a lengthy discussion with the patient regarding the treatment options. At this point he has failed continued non operative treatments. The risks and benefits of right shoulder surgery were discussed at length with the patient. The patient wishes to proceed with surgery. Surgery will most likely involve right shoulder distal clavicle excision, acromioplasty and rotator cuff repair. The patient was given a prescription for oxycodone at his preoperative appointment. He will follow-up as instructed. Feel free to call me at any time should questions regarding his orthopedic management arise. I spent 21 minutes in reviewing the patient's records and imaging studies, seeing the patient and documenting in the medical record. Medications: New oxycodone Partial Fill upon patient request. Take 1-2 tabs every 4 hours as needed for pain following her right shoulder surgery 10 mg (2 x 5 mg) PO Q4H PRN 40 tabs 0RF pain Coding Level of Care Code Est Pt Level 3 (10859) Complex EM visit Add On G2211 Diagnoses Rotator cuff insufficiency of right shoulder M25.311
--- OUTSIDE RECORDS SUMMARY | 2024-10-19 17:08 | XMS_ITS | Continuity of Care Document ---
Author Organization [facility] [address] [place] [address] Phone [phone] Care Team Providers Care [employer] Treatment Plant Supervisor Name Role Phone Billy Washburn M.D. Care Team Information Rece iver [phone] Problems Active Problems Provider Date Deep venous [...] SIG Qnty Indications Order ing Provider Date Qrzoknqv28ol/0.5ML Solution Auto-Inject Inject 10 mg subcutaneously once a week dx: e11.9 2ml E11Marycruz Castellanos M.D. 10/16/2024 Z79.4 Freestyle Lanette 3 Plus/Sensor/Glucose Monitoring SystemMisc apply one sensor to skin every 14 days dx: e10.21 6units Mirian Castellanos M.D. 07/04/2024 Rosuvastatin Lruktad5ma Tablets Take 1 by mouth every day 30tabs Mirian Castellanos M.D. 01/28/2024 Basaglar Qqlosbl943Wfjn/ML Solution Pen-Inject 30 units in the morning Dx: E11.9 54ml Marylou Castellanos M.D. 06/11/2023 BD Pen Needle/Margie/Ultra -Fine/32G X 4mm32G X 4 mm Misc 1 pen needle to insulin pen three times a day dx: e11.9 300units Marylou Castellanos M.D. 06/07/2023 Pramipexole Dihydrochloride0.5mg Tablets Take 3 Tablets By Mouth 2-3 Hours Before Bed Time Billy Washburn M.D. [id number] Tablets Take 1 Tablet By Mouth Every Morning Billy Washburn M.D. [id number] Capsules Take 1-3 Capsules Orally AT Bedtime Ceci Martinez MD History Medications Mounjaro7.5mg/0.5ML Solution Auto-Inject Inject 7.5 mg subcutaneously once a week dx: e11.9 2ml Marylou Castellanos M.D. 07/31/2024 - 10/16/2024 Z79.4 Jkfugoio5ku/0.5ML Solution Auto-Inject Inject 5 mg subcutaneously once a week dx: e11.9 2ml Marylou Castellanos M.D. 05/05/2024 - 07/31/2024 Z79.4 Vital Signs Date Vital Result Comment 10/16/2024 3:04pm BP Systolic 110 mmHg BP Diastolic 72 mmHg Heart Rate 97 /min Height 70 inches 5'10 Weight 199.50 lb BMI (Body Mass Index) 28.6 kg/m2 Results Test Acquired Date Facility Test Result H/L Range N ote Glucose Fingerstick 10/16/2024 Inhouse Glucose Fingerstick 159 Hemoglobin A1c 10/16/2024 Inhouse Hemoglobin A1c 8.2% Glucose Fingerstick 05/05/2024 Inhouse Glucose Fingerstick 175 Hemoglobin A1c 05/05/2024 Inhouse Hemoglobin A1c 8.3 Hemoglobin A1c 01/28/2024 Inhouse Hemoglobin A1c 8.1% Glucose Fingerstick 01/28/2024 Inhouse Glucose Fingerstick 112 Glucose Fingerstick 10/08/2023 Inhouse Glucose Fingerstick 123 Glucose Fingerstick 08/25/2023 Inhouse Glucose Fingerstick 181 Hemoglobin A1c 06/07/2023 Inhouse Hemoglobin A1c 10.3% Glucose Fingerstick 06/07/2023 Inhouse Glucose Fingerstick 301 Procedures Date Code Description Status 10/16/2024 69318 Glucose Monitoring Interpeta tion And Report Completed 06/07/2023 13294 Glucose Monitori ng From Interstital Tissue Fluid Minimum 72 Hours Completed Medical Devices Description No Information Available Encounters Type Date Location Provider Dx Diagnosis Office Visit 10/16/2024 3:00p Main Office ANN MARIE Ingram E11.9 Type 2 diabet es mellitus without complications 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 E78.5 Hyperlipidemia, unsp ecified Assessments Date Code Description Provider 10/16/2024 E11.9 Type 2 diabetes mellitus wit hout complications ANN MARIE Ingram 10/16/2024 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
--- OUTSIDE RECORDS SUMMARY | 2024-10-19 17:08 | XMS_ITS | Clinical Summary ---
Author Organization [facility] Address [address] [place] [address] Care Team Providers Care Fisher Trawl Line Name Role Phone Billy Washburn MD Primary Care Provider [phone] Allergies Active Allergy Reactions Criticality Noted Date [...] age to complete this topic Care Teams Fisher Trawl Line Relationship Specialty Start Date End Date Billy Washburn MD [address] Primary Care [place], [place] [id number] PCP - General Internal Medicine 07/24/21
--- OUTSIDE RECORDS SUMMARY | 2024-10-19 17:08 | XMS_ITS | Data Portability ---
Author Organization [place] - [facility], Allergy Address [address] [address] Care Team Providers Care Pharmacy General Manager Name Role Phone HASMUKH LEDBETTER Primary Care Provider Assessment No assessment recorded. Plan of Treatment Reminders Order Date Submit Date Provider Last Modified By Organization Details Last Modified Time Details Appointments None record ed. Lab None record ed. Referral None record ed. Procedures None record ed. Surgeries None record ed. Imaging None record ed. Medication Orders None record ed. Patient TargetsNo targets recorded. Patient InstructionsNo instructions recorded. Reason for Referral None Reported. Results Created Date Observation Date Name Description Value Unit Range Abnormal Flag Note LastModifiedBy Organization Detail LastModifiedTime 12/15/19 24 audio gram No observ ation record ed. BARCODE Not Available 2023 12:05:03 Result Notes None recorded. Problems Name Problem SNOMED Code Status Onset Date Resolution Date Notes Provider Name and Address Organization Details Recorded Time Chronic sinusitis 94819947 Active 2016 Other chronic sinusiti s; Note: Date Diagnose d: 09/02/2016 2:35 PM (J32.8) Not Available [facility] 4 02:48:09 Sensorineur al hearing loss of bilateral ears 067568770 Active 2023 GUANAKO BURKETT [address], [address] , [facility] 4 10:34:04 Problem Notes None recorded. Procedures Surgical History Date Name Laterality Status Provider Name and Address Organization Details Recorded Time 12/07/19 24 Comp Audio with Tymps (88070 & 83807) completed MARIEL GARCIA AUD 100 [facility],[place] [address], [place], [address], [place] - [facility] 12/07/2023 10:33:58 total replacement of hip completed Sarah Driver [place] - [facility] 12/07/2023 10:34:14 total knee replacement completed Sarah Driver MA [facility] 12/07/2023 10:34:25 Imaging Results Imaging Date Name Status LastModified by Organiz ation Details LastModified Time 12/15/2023 audiogram completed BARCODE Information no t available 12/15/2023 12:05:03 Procedure Notes None recorded. Medical Equipment None Reported. Allergies No known drug allergies Medications Name Sig Start Date Stop Date Status Note LastModified by Organization Details LastModified Time amoxicill in 500 mg capsule TAKE 4 CAPSULES BY MOUTH ONCE AN HOUR BEFORE DENTAL APPOINTM ENT active Not Available Not Available No t Available metformin 500 mg tablet TAKE 2 TABLETS BY MOUTH TWICE A DAY active Not Available Not Available No t Available citalopra m 10 mg tablet Take 1 tablet every day by oral route. active Not Available Not Available No t Available prednison e 5 mg tablet TAKE 3 TABLETS BY MOUTH EVERY DAY active Not Available Not Available No t Available amoxicill in 500 mg tablet TAKE 2 TABLETS BY MOUTH NOW AND THEN 1 TABLET EVERY 8 HOURS UNTIL FINISHED active Not Available Not Available No t Available pramipexo le 0.5 mg tablet TAKE 3 TABLETS BY MOUTH 2-3 HOURS BEFORE BED TIME active Not Available Not Available No t Available pramipexo le 0.125 mg tablet 2014 active Medicati on ID: [id number] D uration Value: 90 Brand Name: pramipex ole Send Method: E-Prescr ibed Sub s Allowed: subs OK Medic ationGen ericName : pramipex ole Not Available Not Available Not Available omeprazol e 20 mg capsule,d elayed release Take 1 capsule every day by oral route. active Not Available Not Available No t Available ibuprofen 600 mg tablet TAKE 1 TABLET BY MOUTH EVERY 6 HOURS NEEDED FOR PAIN active Not Available Not Available No t Available metformin ER 500 mg tablet,ex tended release 24 hr 12/06 completed Medicati on ID: [id number] D uration Value: 30 Brand Name: metanniei n Send Method: E-Prescr ibed Sub s Allowed: subs OK Medic ationGen ericName : metformi n Medica tion ID: [id number] D uration Value: 30 Brand Name: leida obrien Send Method: E-Prescr ibed Sub s Allowed: subs OK Katja Dunaway ericName : leida obrien Not Available Not Available Not Available oxycodone 5 mg tablet TAKE 1 TO 2 TABLETS BY MOUTH EVERY 4 HOURS NEEDED FOR PAIN FOR 1 WEEK active Not Available Not Available No t Available rosuvasta tin 5 mg tablet TAKE 1 TABLET BY MOUTH EVERY DAY active Not Available Not Available No t Available PreserVis ion AREDS active Not Available Not Available No t Available PreviDent 5000 Dry Mouth 1.1 % dental paste PLEASE SEE ATTACHED FOR DETAILED DIRECTIO NS active Not Available Not Available No t Available B12 active Not Available Not Availa ble Not Available Jardiance 25 mg tablet Take 1 tablet every day by oral route. active Not Available Not Available No t Available magnesium 400 mg (as magnesium aspartate ,citrate, oxide) capsule Take by oral route. active Not Available Not Available No t Available Basaglar KwikPen U-100 Insulin 100 unit/mL (3 mL) subcutane ous INJECT 20-60 UNITS SUBCUTAN EOUSLY AT BEDTIME DX: E11.9 active Not Available Not Available No t Available Basaglar KwikPen U-100 Insulin active Not Available Not Available Not Available BD Margie 2nd Gen Pen Needle 32 gauge x 5/32 1 PEN NEEDLE TO INSULIN PEN THREE TIMES A DAY DX: E11.9 active Not Available Not Available No t Available Trulicity 4.5 mg/0.5 mL subcutane ous pen injector INJECT 0.5 ML (4.5 MG) SUBCUTAN EOUSLY EVERY 7 DAYS active Not Available Not Available No t Available Vitals Date Recorded Body height Body mass index (BMI) Body weight Provider Name and Address Organization Details Last Updated DateTime 12/07/2023 177.8 cm 29 kg/m2 44120.66 g Sarah Driver [place] - [facility] 12/07/2023 10:46:00 Social History None recorded. Functional Status None recorded. Mental Status None recorded. Family History Nothing Reported. Medical History Condition Response Diabetes Y Arthritis Y Past Encounters Encounter ID Performer Location Encounter Start Date Encounter Closed Date Diagnosis/Indication Diagnosis SNOMED-CT Code Diagnosis ICD10 Code Diagnosis Note [id number] PHILL CLIFFORD MD [facility] [address] [place] [address] 12/07/2023 10:06:25 12/07/2023 11:01:06 Sensorineural hearing loss of bilateral ears 430055751 H90.3 Right Ear:Normal hearing through 4K Hz sloping to a mild SNHL with excellent speech discrimina tion.Type A tympanogra m.Left Ear:Normal hearing through 6K Hz sloping to a mild SNHL with excellent speech discrimina tion.Type A tympanogra m. Audiometri c testing reviewed with the patient and his . Minimal high-frequ ency sensorineu ral hearing loss consistent with early presbycusi s. Not enough hearing loss to warrant amplificat ion. No need for further workup or interventi on. Discussed some communicat ion modalities to help with miscommuni cations at home. [id number] GUANAKO BURKETT [place] 100 [facility] ite 100 [place] [address] 12/07/2023 10:33:19 12/08/2023 22:42:00 Sensorineural hearing loss of bilateral ears 866091512 H90.3 Right Ear:Normal hearing through 4K Hz sloping to a mild SNHL with excellent speech discrimina tion.Type A tympanogra m.Left Ear:Normal hearing through 6K Hz sloping to a mild SNHL with excellent speech discrimina tion.Type A tympanogra m. Health Concerns Section Related Observation LastModified by Organization Detai ls LastModified Time None Recorded Concern Status LastModified by Organization Details LastModified Time None Recorded Advance Directives Directive None Recorded Payers Encounter Date Sequence Insurance Name Policy Number Policy Phillip Covered Member ID Phillip Member ID Guarantor Name 12/07/2023 1 MEDICARE [place]: [employer] Giancarlo Rizvihan [id number] 5 Giancarlo Tuttleulihan 12/07/2023 2 [facility] Giancarlo Tuttleulihan [id number] 17 Giancarlo Tuttleulihan 12/07/2023 1 MEDICARE B-[place]: [employer] Giancarlo Tuttleulihan [id number] 5 Giancarlo Tuttleulihan 12/07/2023 2 [facility] Giancarlo Severino [id number] Giancarlo Severino Notes Date Note Type Note Provider Name and Address Organization Details Recorded Time 12/07/2023 text/html Patient comes in today accompanied by his for evaluation of his hearing. He thinks his hearing is pretty good except in background noise. His thinks that he cannot hear her. PHILL CLIFFORD MD [address] [place] [address], [place], [address], [place] - [facility] 12/07/2023 11:01:34
== END 2024-10-19 14:21 | disposition home or self-care (01) ==
LOC: HO.HOS 14:04
PROVIDERS: PCP Internal Medicine; Visit Provider Orthopaedic Surgery
DX: M25.311 Other instability, right shoulder (principal)
CPT/HCPCS: 99214; G2211

== ENCOUNTER → 2024-10-19 14:03 | Outpatient (BNVA) | payer MEDICARE, SELFPAY | PROVIDERS: PCP Internal Medicine; Visit Provider Orthopaedic Surgery | DX: M25.311 Other instability, right shoulder (principal) | CPT/HCPCS: 99212 ==

== ENCOUNTER 2024-10-27 06:02 | Day surgery (SDC) | payer MEDICARE, SELFPAY ==
--- OUTSIDE RECORDS SUMMARY | 2024-09-14 14:56 | XMS_ITS | Continuity of Care Document ---
Author Organization [facility] Address [address] [place] [address]- Care Team Providers Care Film Cleaner Name Role Phone Maddison RIZVI, Billy Degroot Primary Care Physician Encounter [facility] Date(s): 08/01/24 - 08/31/24 [facility] [address] [place], [place] [address] Encounter Type: Triage Allergies, Adverse Reactions, Alerts Substance Criticality Severity Reaction Reaction Severity Status lisinopril 1 Pain in both legs Active losartan 2 Pain in both legs A ctive 1leg cramps 2leg cramps Immunizations Given and Recorded Vaccine Date Status Refusal Reason RSV vaccine, preF A-preF B, recombinant 04/20/24 R ecorded influenza virus vaccine, inactivated 04/20/24 Martin rded influenza virus vaccine, inactivated 07/12/22 Martin rded zoster vaccine, inactivated 01/01/23 Recorded zoster vaccine, inactivated 08/20/22 Recorded SARS-CoV-2 (COVID-19) mRNA-1273 vaccine 12/02/21 R ecorded [...] 1 atorvastatin 20 mg oral tablet 1 tablet, By Mouth, Daily, # 90 tablet, 3 Refills, Maintenance, 07/18/24 6:51:00 PM EST, [facility]/pharmacy #[id number], 178, cm, 07/13/24 14:58:00 EST, Height Start Date: 07/18/24 Status: Ordered Quantity: 90.0 Unit: tablet Repeat number: 4 Basaglar KwikPen 100 units/mL subcutaneous solution = [...] Date: 06/24/23 Status: Ordered Repeat number: 1 Flax 0 Refills, Maintenance, 12/14/18 9:31:11 AM [...] Mouth, Daily in AM, # 90 tablet, 1 Refills, Maintenance, 07/18/24 2:34:00 PM EST, [id number], 178, cm, 07/13/24 14:58:00 EST, Height Start Date: 07/18/24 Status: Ordered Quantity: 90.0 Unit: tablet Repeat number: 1 Magnesium Citrate By Mouth, 0 Refills, Maintenance, 09/30/23 10:32:00 AM EDT, Partial fill upon patient request if theprescription is for a schedule II opioid drug. Start Date: 09/30/23 Status: Ordered Repeat number: 1 Mounjaro 7.5 mg/0.5 mL subcutaneous solution = 7.5 mg, Subcutaneous Injection, Every week, rotate injection sites, # 4 each, 0 Refills, Maintenance, 07/13/24 3:26:00 PM EST, Solution, [facility]/pharmacy #[id number], Partial fill upon patient request if the prescription is for a schedule II opioid drug., 178, cm, 07/13/24 14:58:00 EST, Height Start Date: 07/13/24 Status: Ordered Quantity: 4.0 Unit: each Repeat number: 1 Omeprazole By Mouth, Daily, one daily, 0 Refills, Maintenance, 09/10/20 4:31:00 PM EST, Partial fill upon patient request if the prescription is for a schedule II opioid drug. Start Date: 09/10/20 Status: Ordered Repeat number: 1 PreserVision AREDS 2 1 capsule, By Mouth, Daily, 0 Refills, Maintenance, 12/14/18 9:29:34 AM EDT Start Date: 12/14/18 Status: Ordered Repeat number: 1 rOPINIRole 0.25 mg oral tablet PLEASE SEE ATTACHED FOR DETAILED DIRECTIONS Start Date: 03/31/24 Status: Ordered Repeat number: 1 sertraline 25 mg oral tablet 1 tablet = 25 mg, By Mouth, Daily, # 30 tablet, 1 Refills, Maintenance, 07/13/24 3:49:00 PM EST, Tablet, [facility]/pharmacy #[id number], Partial fill upon patient request if the prescription is for a schedule II opioid drug., 178, cm, 07/13/24 14:58:00 EST, Height Start Date: 07/13/24 Status: Ordered Quantity: 30.0 Unit: tablet Repeat number: 2 Vitamin B12 0 Refills, Maintenance, 06/24/23 11:36:00 [...] 2 Refills, Maintenance, 10/14/21 9:28:00 AM EDT, [facility]/pharmacy #[id number], Partial fill upon patient [...] Personnel Name: Maddison RIZVI, Billy Degroot Position: [facility] Physician - Primary Care Member Role: PCP Address: [address] [place] [address] Telecom: Name: Tri Tong RN Position: [facility] RN Member Role: Primary Care Nurse Name: Leola Blair RN Position: [facility] RN Member Role: Primary Care Nurse Care [...]
--- OUTSIDE RECORDS SUMMARY | 2024-09-14 14:56 | XMS_ITS | Clinical Summary ---
Author Organization [facility] Address [address] [place] [address] Care Team Providers Care Sportspersons Name Role Phone Billy Washburn MD Primary Care Provider [phone] Allergies Active Allergy Reactions Criticality Noted Date Comments Lisinopril 08/06/2021 Other reaction(s): Pain in both legs leg cramps Losartan 08/06/2021 Other reaction(s): Pain in both legs leg cramps Medications Medication Sig Dispensed Refills Start Date End Date Status atorvastatin (LIPITOR) tablet 40 mg Take 40 mg by mouth every night at bedtime. 3 09/07/2018 Active JARDIANCE 10 MG tablet Take 1 tablet by mouth daily. 0 11/30/2018 Active metFORMIN (GLUCOPHAGE-XR) ER 24 hr tablet 500 mg TAKE 4 TABLETS ONCE DAILY 4 09/03/2018 Active PLENVU 140 g SOLR TAKE 1 PACKET DISSOLVED IN WATER TWICE A DAY DIRECTED 0 10/13/2018 Active FREESTYLE LITE test strip USE 1 TEST STRIP VIA METER TWICE A DAY 0 02/14/2019 Active pramipexole (MIRAPEX) 0.5 MG tablet TAKE 3 TABLETS DAILY 2 TO 3 HOURS BEFORE BEDTIME 3 02/09/2019 Active sildenafil (VIAGRA) 100 MG tablet 1 TABLET BY MOUTH DAILY,INSTR:1 HOUR BEFORE SEXUAL ACTIVITY 3 12/14/2018 Active amoxicillin (AMOXIL) 500 MG tablet Take 4 tabs 1 hour prior to dental appointment 20 tablet 3 12/12/2019 Active TRULICITY 1.5 MG/0.5ML subcutaneous pen-injector INJECT 0.5ML SUBCUTANEOUSLY EVERY 7 DAYS 0 05/22/2020 Active glipiZIDE (GLUCOTROL XL) ER 24 hr tablet 2.5 mg Take 2.5 mg by mouth daily. 0 07/02/2020 Active Empagliflozin (Jardiance) 25 MG TABS Jardiance 25 mg tablet 0 03/04/2020 Active dulaglutide (Trulicity) 3 MG/0.5ML subcutaneous pen-injector Trulicity 3 mg/0.5 mL subcutaneous pen injector 0 Active dulaglutide (Trulicity) 4.5 MG/0.5ML subcutaneous pen-injector Trulicity 4.5 mg/0.5 mL subcutaneous pen injector 0 12/12/2020 Active traMADol (ULTRAM) 50 MG tablet tramadol 50 mg tablet TAKE 1 TO 2 TABLETS BY MOUTH EVERY 6 HOURS NEEDED FOR MILD PAIN 0 Active Sodium Fluoride 5000 PPM 1.1 % PSTE PLEASE SEE ATTACHED FOR DETAILED DIRECTIONS 0 05/06/2021 Active SODIUM FLUORIDE, DENTAL GEL, 1.1 % GEL Sodium Fluoride 5000 Dry Mouth 1.1 % dental gel 0 Active senna (SENOKOT) 8.6 MG tablet Take 8.6 mg by mouth. 0 01/17/2021 Active Omeprazole (PRILOSEC PO) omeprazole 0 Active meloxicam (MOBIC) 15 MG tablet meloxicam 15 mg tablet 0 01/17/2021 Active HYDROmorphone (DILAUDID) 2 MG tablet hydromorphone 2 mg tablet TAKE 1 TO 2 TABLETS BY MOUTH EVERY 4 HOURS NEEDED FOR MODERATE PAIN 0 Active gabapentin (NEURONTIN) 300 MG capsule gabapentin 300 mg capsule 0 10/23/2020 Active ferrous sulfate 325 (65 FE) MG tablet Take 325 mg by mouth. 0 12/05/2019 Active Docusate Sodium (DSS) 100 MG CAPS docusate sodium 100 mg capsule 0 Active acetaminophen (TYLENOL) 325 MG tablet Take 650 mg by mouth. 0 01/17/2021 Active Diclofenac Sodium 1 % GEL 0 10/14/2021 Active celecoxib (CeleBREX) 200 MG capsule Take 1 capsule (200 mg total) by mouth daily. 0 04/14/2022 Active methocarbamol (ROBAXIN) 750 MG tablet Take 1 tablet (750 mg total) by mouth every 8 (eight) hours as needed. for muscle spasm 0 04/14/2022 Active oxyCODONE (ROXICODONE) 5 MG immediate release tablet TAKE 1 TO 2 TABLETS BY MOUTH EVERY 4 TO 6 HOURS NEEDED FOR SEVERE PAIN SCALE 7-10 0 04/14/2022 Active Senexon-S 8.6-50 MG TAKE 2 TABLETS BY MOUTH AT BEDTIME 0 04/14/2022 Active tadalafil (CIALIS) 5 MG tablet TAKE 1 TABLET BY MOUTH DAILY,INSTR:1 HOUR BEFORE SEXUAL ACTIVITY 0 04/06/2022 Active warfarin (COUMADIN) 1 MG tablet Take 8 tabs daily or as directed by physician 150 tablet 0 04/28/2022 Active warfarin (COUMADIN) 5 MG tablet Take 2 tablets daily or as directed by physician 30 tablet 0 05/04/2022 Active Active Problems Problem Noted Date Diagnosed Date Chronic right shoulder pain 08/17/2019 Postoperative follow-up 05/12/2019 Social History Tobacco Use Types Packs/Day Years Used Date Smoking Tobacco: Never Smokeless Tobacco: Never Sex and Gender Information Value Date Recorded Sex Assigned at Not on file Gender Identity Not on file Sexual Orientation Not on file Job Start Date Occupation Industry Not on file Not on file Not on file Last Filed Vital Signs Vital Sign Reading Time Taken Comments Blood Pressure - - Pulse - - Temperature - - Respiratory Rate - - Oxygen Saturation - - Inhaled Oxygen Concentration - - Weight 97.5 kg (215 lb) 12/09/2018 2:18 PM EDT Height 177.8 cm (5' 10 ) 12/09/2018 2:18 PM EDT Body Mass Index 30.85 12/09/2018 2:18 PM EDT Plan of Treatment Health Maintenance Due Date Last Done Comments Hepatitis C Screening 1955 COVID-19 Vaccine (#1) 1955 Pneumococcal Vaccine (1 of 2 - PCV) 1963 Depression Screening 1969 BMI Counseling 1975 Preventative Health Evaluation 1975 DTap / Tdap / Td (1 - Tdap) 1976 Colon Cancer Screening (Colonoscopy) 2002 Shingrix-Zoster Vaccine (1 of 2) 2007 Fall Risk Assessment 2022 Influenza Vaccine (#1) 2024 RSV Adult > 60+ Yrs or Pregn ant (1 - 1-dose 75+ series) 2032 Hepatitis B Vaccines Aged Out No long er eligible based on patient's age to complete this topic RSV Ped < 20 months Aged Out No longe r eligible based on patient's age to complete this topic Care Teams Sportspersons Relationship Specialty Start Date End Date Billy Washburn MD [address] Primary Care [place], [place] [id number] PCP - General Internal Medicine 07/24/21
--- OUTSIDE RECORDS SUMMARY | 2024-09-14 14:56 | XMS_ITS | Continuity of Care Document ---
Author Organization [facility] [address] [place] [address] Phone [phone] Care Team Providers Care Explosive Ordnance Disposal Technician Name Role Phone Billy Washburn M.D. Care Team Information Rece iver [phone] Problems Active Problems Provider Date Deep venous thrombosis Jmimy Becker M.D. Ons et: 06/07/2023 Erectile dysfunction [...] SIG Qnty Indications Order ing Provider Date Mounjaro7.5mg/0.5ML Solution Auto-Inject Inject 7.5 mg subcutaneously once a week dx: e11.9 2ml Marylou Castellanos M.D. 07/31/2024 Z79.4 Freestyle Lanette 3 Plus/Sensor/Glucose Monitoring SystemMisc apply one sensor to skin every 14 days dx: e10.21 6units Mirian Castellanos M.D. 07/04/2024 Rosuvastatin Gunaayp9cf Tablets Take 1 by mouth every day 30tabs Mirian Castellanos M.D. 01/28/2024 Basaglar Sdcstaz897Bjtj/ML Solution Pen-Inject 30 units in the morning Dx: E11.9 54ml Marylou Castellanos M.D. 06/11/2023 BD Pen Needle/Margie/Ultra -Fine/32G X 4mm32G X 4 mm Misc 1 pen needle to insulin pen three times a day dx: e11.9 300units Marylou Castellanos M.D. 06/07/2023 Pramipexole Dihydrochloride0.5mg Tablets Take 3 Tablets By Mouth 2-3 Hours Before Bed Time Billy Washburn M.D. Pzjayybhf79gv Tablets Take 1 Tablet By Mouth Every Morning Billy Washburn M.D. Ublnxgxppf785so Capsules Take 1-3 Capsules Orally AT Bedtime Ceci Martinez MD History Medications Lwyfscyp6fq/0.5ML Solution Auto-Inject Inject 5 mg subcutaneously once a week dx: e11.9 2ml Marylou Castellanos M.D. 05/05/2024 - 07/31/2024 Z79.4 Vital Signs Date Vital Result Comment 05/05/2024 2:38pm BP Systolic 110 mmHg BP Diastolic 74 mmHg Height 70 inches 5'10 Weight 209.00 lb BMI (Body Mass Index) 30.0 kg/m2 Results Test Acquired Date Facility Test Result H/L Range N ote Glucose Fingerstick 05/05/2024 Inhouse Glucose Fingerstick 175 Hemoglobin A1c 05/05/2024 Inhouse Hemoglobin A1c 8.3 Hemoglobin A1c 01/28/2024 Inhouse Hemoglobin A1c 8.1% Glucose Fingerstick 01/28/2024 Inhouse Glucose Fingerstick 112 Glucose Fingerstick 10/08/2023 Inhouse Glucose Fingerstick 123 Glucose Fingerstick 08/25/2023 Inhouse Glucose Fingerstick 181 Hemoglobin A1c 06/07/2023 Inhouse Hemoglobin A1c 10.3% Glucose Fingerstick 06/07/2023 Inhouse Glucose Fingerstick 301 Procedures Date Code Description Status 06/07/2023 43784 Glucose Monitori ng From Interstital Tissue Fluid Minimum 72 Hours Completed Medical Devices Description No Information Available Encounters Type Date Location Provider Dx Diagnosis Office Visit 05/05/2024 2:15p Main Office ANN MARIE Ingram E11.9 Type 2 diabet es mellitus without complications Z79.4 jail (current) use of insulin Assessments Date Code Description Provider 05/05/2024 E11.9 Type 2 diabetes mellitus wit hout complications ANN MARIE Ingram 05/05/2024 Z79.4 jail (current) use of i nsulin ANN MARIE Ingram Plan of Treatment Future Appointment(s):* 10/16/2024 3:00 pm - ANN MARIE Ingrma at Main Office 05/05/2024 - ANN MARIE Ingram* E11.9 Type 2 diabetes mellitus without complications * 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
--- NOTE | 2024-10-12 | ECG_ITS ---
Test Reason : pre op Blood Pressure : */* mmHG Vent. Rate : 79 BPM Atrial Rate : 79 BPM P-R Int : 170 ms QRS Dur : 142 ms QT Int : 398 ms P-R-T Axes : 66 -7 33 degrees QTcB Int : 456 ms Normal sinus rhythm Right bundle branch block Abnormal ECG When compared with ECG of 06-Oct-2023 13:02, No significant change was found Referred By: Karen Muir Electronically Signed By: Azar Lawson
[2024-10-12 10:38] VITALS: BP 110/61; PULSE 86; RESP 16; O2SAT 96; BMI 28.7
--- NOTE | 2024-10-12 10:54 | P.CONAN_ITS ---
Documented by User: Karen Muir NP 10/26/24 09:31 HPI - Anesthesia Eval Consult details Narrative: 69yo M for Right Shoulder Arthroscopy,distal clavical excision,acromiplasty,rotator cuff repair, 10/27/24 s/p Left shoulder 10/2023 with ETT 7.5, block - no issues with anesthesia per patient and . Noted large area of erythema on left flank after surgery - ? positioning intraop No recent illness No CP/SOB with regular activity Medically optimized per [facility] Anesthesia Pre-Procedure Meds Is the patient on any of the following meds?: GLP1/DPP4 and SGLT2 Inhib PMFSH Active Problems Active Problems: All Active Problems Rotator cuff insufficiency of right shoulder (Acute) Bilateral shoulder pain (Acute) Right shoulder pain (Acute) S/P left rotator cuff repair (Acute) Vitamin D deficiency (Acute) PLMD (periodic limb movement disorder) (Acute) Left shoulder pain (Acute) MIKAYLA (obstructive sleep apnea) (Acute) Fatigue (Acute) Cognitive decline (Acute) Restless legs syndrome (RLS) (Acute) Past Medical History Medical History Heartburn Sinus tachycardia Shoulder pain RBBB (right bundle branch block with left anterior fascicular block) Orthostatic hypotension Neck pain Microalbuminuria Memory loss MCI (mild cognitive impairment) Lumbar canal stenosis Hypogonadotropic hypogonadism Hypogonadism male Erectile dysfunction Claudication Arthralgia of hand Allergic rhinitis Restless legs syndrome (RLS) Osteoarthritis DVT (deep venous thrombosis) Depression RBBB (right bundle branch block) LAFB (left anterior fascicular block) Spinal stenosis Cognitive decline Elevated cholesterol GERD (gastroesophageal reflux disease) Diabetes Sleep apnea PLMD (periodic limb movement disorder) Family History Family History Father Skin cancer Family history of problems with anesthesia: No Surgical History Surgical History Hx of LASIK History of vasectomy Hx of shoulder surgery (~10/15/23) History of esophagogastroduodenoscopy (EGD) H/O colonoscopy Hx of shoulder surgery History of total left hip replacement History of right hip replacement Status post right knee replacement History of Problems with Anesthesia: No Social History Social History Are you a primary vocational childcare teacher to a significant other at home: No Do you presently have visiting nurse or other home services: No Alcohol intake: current Alcohol intake frequency: holidays/special occasions only Patient Tobacco Use Status: Current someday Tobacco user Tobacco use type: Cigar Years Smoked: 15 Use of substances other than those prescribed or required for medical reasons: No Have you been hit, kicked, punched, or otherwise hurt by someone within the past year? If so, by whom?: No Are you DNR?: No Advance Directives: No Advance Directives Information Provided: Yes Advance Directives on File: No Poor oral hygiene: Yes Meds Allergies Allergy/AdvReac Type Severity Reaction Status Date / Time losartan Allergy Unknown Verified 10/19/24 14:11 lisinopril AdvReac Mild Cough Verified 10/19/24 14:11 Home Medications ?Medication ?Instructions ?Recorded ?Confirmed ?Last Taken ?Type empagliflozin 25 mg tablet 25 mg PO QAM 12/24/22 10/19/24 10/23/24 History (Jardiance) omeprazole 20 mg capsule,delayed 20 mg PO QAM PRN Acid Reflux 12/24/22 10/19/24 Unknown History release insulin glargine 100 unit/mL (3 30 unit subcut QAM 10/05/23 10/27/24 10/27/24 History mL) subcutaneous pen (Basaglar KwikPen U-100 Insulin) cholecalciferol (vitamin D3) 25 25 mcg PO DAILY 10/06/23 10/19/24 Unknown History mcg (1,000 unit) capsule (Vitamin D3) turmeric 400 mg capsule 400 mg PO DAILY 03/07/24 10/19/24 Unknown History atorvastatin 20 mg tablet 20 mg PO BEDTIME 10/11/24 10/19/24 Unknown History cyanocobalamin (vitamin B-12) 50 50 mcg PO DAILY 10/11/24 10/19/24 Unknown History mcg lozenges (Vitamin B-12) vit C 250 mg-vit E 90 mg-zinc 40 1 tab PO DAILY 10/11/24 10/19/24 Unknown History mg-copper 1 cb-vxppsr-oqydsy capsule (PreserVision AREDS-2) gabapentin 100 mg capsule 100 mg PO BEDTIME 10/12/24 10/19/24 Unknown History magnesium glycinate 100 mg (as 200 mg PO DAILY 10/12/24 10/19/24 Unknown History glycinate) tablet ropinirole 0.25 mg tablet 0.5 - 1 mg PO BEDTIME for restless 10/12/24 10/19/24 Unknown History legs sertraline 25 mg tablet 25 mg PO BEDTIME 10/12/24 10/19/24 Unknown History tirzepatide 7.5 mg/0.5 mL 7.5 mg subcut QWEEK 10/12/24 10/19/24 10/18/24 History subcutaneous pen injector (Mounjaro) Exam Height,Weight and Vital Signs: Height 5 ft 10 in Weight 90.718 kg Last Vital Signs Pulse 86 10/12/24 10:38 Resp 16 10/12/24 10:38 BP 110/61 10/12/24 10:38 Pulse Ox 96 10/12/24 10:38 O2 Del Method Room Air 10/12/24 10:38 Pertinent Lab Results Pertinent Lab Results: Lab Results 10/12/24 Range/Units 11:16 WBC 11.0 H (4.8-10.8) X10*3/uL RBC 5.75 (4.60-5.80) X10*6/uL Hgb 15.2 (14.0-18.0) g/dl Hct 45.6 (42.0-52.0) % MCV 79.3 L (80.0-98.0) fL MCH 26.4 L (27.0-33.0) pg MCHC 33.3 (31.0-36.0) g/dl RDW 15.7 (11.0-16.0) % Plt Count 213 (160-400) X10*3/uL MPV 10.9 (9.4-12.4) fL Absolute Nucleated RBC 0.000 (0.0-0.012) X10*3/uL Nucleated RBC % (auto) 0.0 (0.0-0.2) /100WBC Sodium 137 (135-145) mmol/L Potassium 4.9 (3.3-5.1) mmol/L Chloride 103 (96-108) mmol/L Carbon Dioxide 26 (22-29) mmol/L Anion Gap 13 (12-20) BUN 14 (9-16) mg/dL Creatinine 0.72 (0.5-1.4) mg/dL Estim Creat Clear Calc 112.7 Estimated GFR > 60 Random Glucose 237 H (60-115) mg/dL Estimat Average Glucose 180 mg/dL Hemoglobin A1c % 7.9 H (<6.0) % Calcium 9.7 (8.4-10.2) mg/dL Narrative Narrative: EKG 10/2024 Vent. Rate : 79 BPM Atrial Rate : 79 BPM P-R Int : 170 ms QRS Dur : 142 ms QT Int : 398 ms P-R-T Axes : 66 -7 33 degrees QTcB Int : 456 ms Normal sinus rhythm Right bundle branch block Abnormal ECG When compared with ECG of 06-Oct-2023 13:02, No significant change was found Airway Mallampati Class: II TM Dist: >3cm Neck ROM: Full Loose/Missing/Broken Teeth: Yes (molars missing, implant in molar) Heart: RRR Lungs: CTAB Assessment and Plan Assessment Anesthesia Assessment: Anesthesia Plan Discussed and PAT Visit Final Anesthetic Review Family History of Problems with Anesthesia: No History of Problems with Anesthesia: No Documented by User: Darshana Vale MD 10/27/24 07:21 [facility] Past Medical History Medical History Heartburn Sinus tachycardia Shoulder pain RBBB (right bundle branch block with left anterior fascicular block) Orthostatic hypotension Neck pain Microalbuminuria Memory loss MCI (mild cognitive impairment) Lumbar canal stenosis Hypogonadotropic hypogonadism Hypogonadism male Erectile dysfunction Claudication Arthralgia of hand Allergic rhinitis Restless legs syndrome (RLS) Osteoarthritis DVT (deep venous thrombosis) Depression RBBB (right bundle branch block) LAFB (left anterior fascicular block) Spinal stenosis Cognitive decline Elevated cholesterol GERD (gastroesophageal reflux disease) Diabetes Sleep apnea PLMD (periodic limb movement disorder) Family History Family History Father Skin cancer Surgical History Surgical History Hx of LASIK History of vasectomy Hx of shoulder surgery (~10/15/23) History of esophagogastroduodenoscopy (EGD) H/O colonoscopy Hx of shoulder surgery History of total left hip replacement History of right hip replacement Status post right knee replacement Social History Social History Are you a primary vocational childcare teacher to a significant other at home: No Do you presently have visiting nurse or other home services: No Alcohol intake: current Alcohol intake frequency: holidays/special occasions only Patient Tobacco Use Status: Current someday Tobacco user Tobacco use type: Cigar Years Smoked: 15 Use of substances other than those prescribed or required for medical reasons: No Have you been hit, kicked, punched, or otherwise hurt by someone within the past year? If so, by whom?: No Are you DNR?: No Advance Directives: No Advance Directives Information Provided: Yes Advance Directives on File: No Poor oral hygiene: Yes Meds Allergies Allergy/AdvReac Type Severity Reaction Status Date / Time losartan Allergy Unknown Verified 10/19/24 14:11 lisinopril AdvReac Mild Cough Verified 10/19/24 14:11 Home Medications ?Medication ?Instructions ?Recorded ?Confirmed ?Last Taken ?Type empagliflozin 25 mg tablet 25 mg PO QAM 12/24/22 10/19/24 10/23/24 History (Jardiance) omeprazole 20 mg capsule,delayed 20 mg PO QAM PRN Acid Reflux 12/24/22 10/19/24 Unknown History release insulin glargine 100 unit/mL (3 30 unit subcut QAM 10/05/23 10/27/24 10/27/24 History mL) subcutaneous pen (Basaglar KwikPen U-100 Insulin) cholecalciferol (vitamin D3) 25 25 mcg PO DAILY 10/06/23 10/19/24 Unknown History mcg (1,000 unit) capsule (Vitamin D3) turmeric 400 mg capsule 400 mg PO DAILY 03/07/24 10/19/24 Unknown History atorvastatin 20 mg tablet 20 mg PO BEDTIME 10/11/24 10/19/24 Unknown History cyanocobalamin (vitamin B-12) 50 50 mcg PO DAILY 10/11/24 10/19/24 Unknown History mcg lozenges (Vitamin B-12) vit C 250 mg-vit E 90 mg-zinc 40 1 tab PO DAILY 10/11/24 10/19/24 Unknown History mg-copper 1 bs-uzucjt-iuxgwk capsule (PreserVision AREDS-2) gabapentin 100 mg capsule 100 mg PO BEDTIME 10/12/24 10/19/24 Unknown History magnesium glycinate 100 mg (as 200 mg PO DAILY 10/12/24 10/19/24 Unknown History glycinate) tablet ropinirole 0.25 mg tablet 0.5 - 1 mg PO BEDTIME for restless 10/12/24 10/19/24 Unknown History legs sertraline 25 mg tablet 25 mg PO BEDTIME 10/12/24 10/19/24 Unknown History tirzepatide 7.5 mg/0.5 mL 7.5 mg subcut QWEEK 10/12/24 10/19/24 10/18/24 History subcutaneous pen injector (Mounjaro) Assessment and Plan Assessment Anesthesia Assessment: Chart Reviewed Final Anesthetic Review NPO: Yes ASA Class: III Final Preanesthetic Review: No Changes in Pt Med Stat, Meds/Allgs Chart Reviewed, Consent Obtained/Reviewed and Anes Risks/Benef Reviewed Patient Risk: Intermediate Procedure Risk: Intermediate Anesthetic Plan Anesthetic Plan: GA, Regional Block and Agree w/ Assess. and Plan Disposition: Standard PACU
[2024-10-12 11:38] LABS: Hematocrit 45.6 % (42.0-52.0); Hemoglobin 15.2 g/dl (14.0-18.0); Mean Corpuscular HGB Conc 33.3 g/dl (31.0-36.0); Mean Corpuscular Hemoglobin 26.4 pg (27.0-33.0); Mean Corpuscular Volume 79.3 fL (80.0-98.0); Mean Platelet Volume 10.9 fL (9.4-12.4); Platelet Count 213 X10*3/uL (160-400); Red Blood Count 5.75 X10*6/uL (4.60-5.80); Red Cell Distribution Width 15.7 % (11.0-16.0)
[2024-10-12 12:10] LABS: Anion Gap 13 (12-20); Blood Urea Nitrogen 14 mg/dL (9-16); Calcium 9.7 mg/dL (8.4-10.2); Carbon Dioxide 26 mmol/L (22-29); Chloride 103 mmol/L (96-108); Creatinine Clr Calc Pharmacy 112.7; Estimated Glomerular Filt Rate > 60; Glucose Random 237 mg/dL (60-115); Potassium 4.9 mmol/L (3.3-5.1); Sodium 137 mmol/L (135-145)
[2024-10-12 12:13] LABS: Estimated Average Glucose 180 mg/dL; Hemoglobin A1C 249.1909 umol/L; Hemoglobin A1c % 7.9 % (<6.0); Total Hemoglobin (HGBA1C) 3967.7225 umol/L
[2024-10-27 06:24] VITALS: BMI 28.8
[2024-10-27 06:29] VITALS: BP 106/62; PULSE 76; RESP 16; TEMP 36.4; O2SAT 98
[2024-10-27 07:01] LABS: Glucose, Whole Blood 165 mg/dL (60-115)
[2024-10-27] MEDS: Lactated Ringers 1,000 ML 100 ML IVCONT (07:04)
[2024-10-27] MEDS: ceFAZolin Sodium/Dextrose,Iso 2 GM/50 ML PIGGYBACK IV (07:45)
[2024-10-27] MEDS: Acetaminophen 1,000 MG/100 ML PIGGYBACK 400 MG IV (08:05)
[2024-10-27 09:52] VITALS: BP 105/58; PULSE 78; RESP 16; TEMP 36.3; O2SAT 98
[2024-10-27 09:57] VITALS: BP 107/58; PULSE 91; RESP 20; O2SAT 97
[2024-10-27 09:59] LABS: Glucose, Whole Blood 176 mg/dL (60-115)
[2024-10-27 10:02] VITALS: BP 103/60; PULSE 82; RESP 20; O2SAT 95
--- NOTE | 2024-10-27 10:03 | P.BOP_ITS ---
Brief Operative Note Date of Service: 10/27/24 Pre-op diagnosis: Right shoulder impingement syndrome, right shoulder acromioclavicular joint arthritis, right shoulder rotator cuff tear Post-op diagnosis: same Procedure: Right shoulder diagnostic arthroscopy with right shoulder arthroscopic distal clavicle excision, right shoulder arthroscopic acromioplasty, right shoulder mini-open rotator cuff repair Implants: One suture anchor (Cox [employer] Nephew Twinfix anchor with #2 Ultrabraid suture) Surgeon: Melvin Fields MD Anesthesia: GETA and regional Was an Bulk Materials Handling Plant Operator used for this Procedure?: No Estimated blood loss (mL): 10 Pathology: none sent Condition: stable Disposition: PACU
--- NOTE | 2024-10-27 10:05 | P.OP_ITS ---
Operative Note Operative Note Date of Service: 10/27/24 Narrative: After the patient was identified as Giancarlo Severino and his right shoulder was initialed by myself the patient was brought to the holding area where a right shoulder interscalene regional block was performed by the anesthesiologist in routine fashion. The patient was then brought to the operating room where general anesthesia was induced by the anesthesiologist in routine fashion. The patient was given 2 g of IV Ancef preoperatively for infection prophylaxis. Examination under anesthesia of the patient's right shoulder showed full passive range of motion of the patient's right shoulder when compared to the left. The patient was gently positioned in the beach chair position with all bony prominences well padded. The patient's right shoulder region and upper extremity were prepped and draped in sterile fashion. A formal time-out was completed. A #11 scalpel blade was used to make a posterior portal 2 cm inferior and 1 cm medial to the posterolateral corner of the acromion. Blunt trocar technique was used to enter the glenohumeral joint in routine fashion. An anterior portal was made just lateral to the coracoid process after proper positioning was confirmed using a spinal needle. Diagnostic arthroscopy showed minimal degenerative changes of the glenoid and humeral head articular surfaces. There was a full-thickness tear of the supraspinatus tendon. There was no evidence of injury to the biceps tendon or its insertion onto the glenoid. There was no inflammation of the anterior joint capsule. The arthroscope was then placed from the posterior portal into the subacromial space. A lateral portal was made 2 fingerbreadths lateral to the anterior lateral corner of the acromion. The ArthroCare Wand was used to ablate soft tissues along the undersurface of the acromion as well as to excise the coracoacromial ligament. There was a sharp spur along the undersurface of the acromion which was removed using the hooded bur. The arthroscope was then placed into the lateral portal and the acromioplasty was completed with the bur in the posterior portal using the posterior aspect of the acromion as a cutting block. The ArthroCare Wand was then brought in through the anterior portal and was used to ablate soft tissues along the acromioclavicular joint and distal clavicle. The posterior and superior ligamentous structures were left intact. A distal clavicle excision of 4 mm was performed using the hooded bur. Any remaining bursal tissue was removed using the arthroscopic shaver. The subacromial space was irrigated and then drained. All arthroscopic instruments were removed. Sterile gloves were changed and the shoulder was once again prepped with Betadine. A #15 scalpel blade was used to extend the lateral portal to the lateral edge of the acromion. The subacromial tissues were dissected using electrocautery down to the superficial deltoid fascia. The trocar split in the anterior raphe of the deltoid was then extended to the lateral edge of the acromion using nitin ctrocautery and curved Nathan scissors. Any remaining bursal tissue was removed using curved Nathan scissors. Subacromial and subdeltoid adhesions were bluntly dissected. The undersurface of the acromion was palpated and it was smooth. A #2 Ethibond tag suture was placed into the supraspinatus tendon. The tendon was easily mobilized to its insertion point on the glenoid. The wound was irrigated with copious amounts of normal saline solution. One suture anchor was placed into the greater tuberosity in routine fashion. The rotator cuff repair was then performed using horizontal mattress sutures under minimal tension with the patient's elbow at their side. Following the repair the shoulder was taken through a full range of motion. The repair was stable. The wound was irrigated with copious amounts of normal saline solution. The superficial and deep deltoid fascia were closed with #1 Vicryl [id number] interrupted suture. The wound was once again irrigated. The subcutaneous tissues were closed with 2-0 Vicryl interrupted suture. The skin was closed with 3-0 Prolene subcuticular suture and Steri-Strips. The anterior and posterior portals were closed with 3-0 nylon interrupted suture. Dry sterile dressing was placed over all incisions. The patient's right upper extremity was placed into a sling. The patient was awoken and extubated in the operating room. The patient was transferred to the recovery room in stable condition.
[2024-10-27] MEDS: cefTRIAXone sodium 1 GM VIAL IVPUSH (10:06)
[2024-10-27 10:07] VITALS: BP 98/57; PULSE 84; RESP 20; O2SAT 95
[2024-10-27 10:22] VITALS: BP 99/51; PULSE 75; RESP 20; TEMP 36.2; O2SAT 96
== END 2024-10-27 10:53 | disposition home or self-care (01) ==
PROVIDERS: Nurse Practitioner; PCP Internal Medicine; Visit Provider Orthopaedic Surgery
PROC: (CPT 29805; principal; 2024-10-27 07:30)
DX: M75.121 Complete rotator cuff tear or rupture of right shoulder, not specified as traumatic (principal); M75.41 Impingement syndrome of right shoulder; M19.011 Primary osteoarthritis, right shoulder; M25.311 Other instability, right shoulder; M25.511 Pain in right shoulder; R53.1 Weakness; Z98.890 Other specified postprocedural states; G47.61 Periodic limb movement disorder; E55.9 Vitamin D deficiency, unspecified; G47.33 Obstructive sleep apnea (adult) (pediatric); G31.84 Mild cognitive impairment of uncertain or unknown etiology; E11.9 Type 2 diabetes mellitus without complications; K21.9 Gastro-esophageal reflux disease without esophagitis; Z86.718 Personal history of other venous thrombosis and embolism; Z79.4 Long term (current) use of insulin; Z79.84 Long term (current) use of oral hypoglycemic drugs; Z79.85 Long-term (current) use of injectable non-insulin antidiabetic drugs; Z79.82 Long term (current) use of aspirin; Z79.899 Other long term (current) drug therapy; Z88.8 Allergy status to other drugs, medicaments and biological substances; Z96.643 Presence of artificial hip joint, bilateral; Z96.651 Presence of right artificial knee joint; Z87.891 Personal history of nicotine dependence
CPT/HCPCS: 23412; 29824; 29826; 36415; 80048; 82947; 83036; 85027; 93005; C1713; J0131; J0171; J0665; J0690; J0696; J1100; J2003; J2250; J2371; J2405; J2704; J2795; J3010

== ENCOUNTER → 2024-10-27 06:02 | Outpatient (BNV) | payer MEDICARE, SELFPAY | PROVIDERS: PCP Internal Medicine; Visit Provider Orthopaedic Surgery | DX: M75.121 Complete rotator cuff tear or rupture of right shoulder, not specified as traumatic (principal); M75.41 Impingement syndrome of right shoulder; M19.011 Primary osteoarthritis, right shoulder | CPT/HCPCS: 23412; 29824 ==

== ENCOUNTER 2024-11-09 13:57 | Outpatient (AMB) | payer MEDICARE, SELFPAY ==
--- NOTE | 2024-11-09 14:01 | A.OFFVIS_ITS ---
Intake Visit Reasons: PO RT shoulder 10/27/24 DR Intake Note: Giancarlo is a 69 year old male who presents today post-operatively after undergoing a right shoulder arthroscopy on 10/27/24. Patient reports he is doing well, he denies any pain. Allergies losartan Allergy (Verified 11/09/24 14:02) Unknown lisinopril Adverse Reaction (Mild, Verified 11/09/24 14:02) Cough Medication List - Last Reconciled 11/09/24 by Adrienne Lorenzo PA-C atorvastatin 20 mg PO BEDTIME cholecalciferol (vitamin D3) (Vitamin D3) 25 mcg PO DAILY cyanocobalamin (vitamin B-12) (Vitamin B-12) 50 mcg PO DAILY empagliflozin (Jardiance) 25 mg PO QAM gabapentin 100 mg PO BEDTIME insulin glargine (Basaglar KwikPen U-100 Insulin) 30 units subcut QAM magnesium glycinate 200 mg PO DAILY omeprazole 20 mg PO QAM PRN ropinirole 0.5 - 1 mg PO BEDTIME sertraline 25 mg PO BEDTIME tirzepatide (Mounjaro) 7.5 mg subcut QWEEK turmeric 400 mg PO DAILY vit C,R-Zz-jdvnc-lutein-zeaxan 250-90-40-1 mg (PreserVision AREDS-2) 1 tab PO DAILY HPI HPI PO RT shoulder 10/27/24 DR: Details: 69-year-old gentleman returns to the office today status post right shoulder surgery with Dr. Fields on 10/27/2024. Patient is doing quite well with no concerns today. [facility] Medical History Heartburn Sinus tachycardia Shoulder pain RBBB (right bundle branch block with left anterior fascicular block) Orthostatic hypotension Neck pain Microalbuminuria Memory loss MCI (mild cognitive impairment) Lumbar canal stenosis Hypogonadotropic hypogonadism Hypogonadism male Erectile dysfunction Claudication Arthralgia of hand Allergic rhinitis Restless legs syndrome (RLS) Osteoarthritis DVT (deep venous thrombosis) Depression RBBB (right bundle branch block) LAFB (left anterior fascicular block) Spinal stenosis Cognitive decline Elevated cholesterol GERD (gastroesophageal reflux disease) Diabetes Sleep apnea PLMD (periodic limb movement disorder) Surgical History Hx of LASIK History of vasectomy Hx of shoulder surgery (~10/15/23) History of esophagogastroduodenoscopy (EGD) H/O colonoscopy Hx of shoulder surgery History of total left hip replacement History of right hip replacement Status post right knee replacement Family History Father Skin cancer Social History Are you a primary field care coordinator to a significant other at home: No Do you presently have visiting nurse or other home services: No Alcohol intake: current Alcohol intake frequency: holidays/special occasions only Comment: counts occrect Patient Tobacco Use Status: Current someday Tobacco user Tobacco use type: Cigar Years Smoked: 15 Review of Systems Const All systems reviewed & are unremarkable except as noted in HPI and below Physical Exam Extrem Other: Right shoulder incision clean dry and intact. No erythema. Neurovascularly intact Results Reviewed Results Reviewed: Brief Operative Note Date of Service: 10/27/24 Pre-op diagnosis: Right shoulder impingement syndrome, right shoulder acromioclavicular joint arthritis, right shoulder rotator cuff tear Post-op diagnosis: same Procedure: Right shoulder diagnostic arthroscopy with right shoulder arthroscopic distal clavicle excision, right shoulder arthroscopic acromioplasty, right shoulder mini-open rotator cuff repair Implants: One suture anchor (Cox and Nephew Twinfix anchor with #2 Ultrabraid suture) Surgeon: Melvin Fields MD Assessment & Plan Assessment & Plan (1) S/P right rotator cuff repair: Code(s): Z98.890 - Other specified postprocedural states Category: Surgical Plan: Sutures removed today Steri-Strips applied. I discussed the importance of sling use to prevent injury. He can remove the sling in controlled environments. I did place an order for physical therapy. He will see us back in [address] Fields sooner if needed Orders: Orders PT Evaluation and Treatment Today Z98.890 - Other specified postprocedural states Coding Level of Care Code Global (91197) Diagnoses S/P right rotator cuff repair Z98.890
--- OUTSIDE RECORDS SUMMARY | 2024-11-09 14:51 | XMS_ITS | Clinical Summary ---
Author Organization [facility] Address [address] [place] [address] Care Team Providers Care Chemical Process Engineer Name Role Phone Billy Washburn MD Primary Care Provider [phone] Allergies Active Allergy Reactions Criticality Noted Date [...] age to complete this topic Care Teams Chemical Process Engineer Relationship Specialty Start Date End Date Billy Washburn MD [address] Primary Care [place], [place] [id number] PCP - General Internal Medicine 07/24/21
--- OUTSIDE RECORDS SUMMARY | 2024-11-09 14:52 | XMS_ITS | Data Portability ---
Author Organization [place] - [facility], Allergy Address [address] [address] Care Team Providers Care Cable Supervisor Name Role Phone HASMUKH LEDBETTER Primary Care [...] Address Organization Details Recorded Time Chronic sinusitis 42887171 Active 2016 Other chronic sinusiti s; Note: Date Diagnose d: 09/02/2016 2:35 PM (J32.8) Not Available [facility] 4 02:48:09 Sensorineur al hearing loss of bilateral ears 934388741 Active 2023 GUANAKO BURKETT [address], [address] , [facility] 4 10:34:04 Problem Notes None recorded. Procedures Surgical History Date Name Laterality Status Provider Name and Address Organization Details Recorded Time 12/07/19 24 Comp Audio with Tymps - 50893 & 97340 completed MARIEL GARCIA AUD 100 [facility],[place] [address], [place], [address], [place] - [facility] 12/07/2023 10:33:58 total replacement of hip completed Sarah Driver [place] - [facility] 12/07/2023 10:34:14 total knee replacement completed Sarah Driver [place] - [facility] 12/07/2023 10:34:25 Imaging Results Imaging Date Name [...] mg tablet 2014 active Medicati on ID: [id number] D uration Value: 90 Brand Name: pramipex [...] 24 hr 12/06 completed Medicati on ID: [id number] D uration Value: 30 Brand Name: metformi n Send Method: E-Prescr ibed Sub s Allowed: subs OK Medic ationGen ericName : metformi n Medica tion ID: [id number] D uration Value: 30 Brand Name: leida obrien Send Method: E-Prescr ibed Sub s Allowed: subs OK Medic Gume ericName : leida obrien Not Available Not [...] Updated DateTime 12/07/2023 177.8 cm 29 kg/m2 78415.66 g Sarah Driver [place] - [facility] 12/07/2023 10:46:00 Social History None recorded. Functional Status None recorded. Mental Status None recorded. Family History Nothing Reported. Medical History Condition Response Diabetes Y Arthritis Y Past Encounters Encounter ID Performer Location Encounter Start Date Encounter Closed Date Diagnosis/Indication Diagnosis SNOMED-CT Code Diagnosis ICD10 Code Diagnosis Note [id number] PHILL CLIFFORD MD [facility] [address] [place] [address] 12/07/2023 10:06:25 12/07/2023 11:01:06 Sensorineural hearing loss of bilateral ears 808325551 H90.3 Right Ear:Normal hearing through 4K Hz [...] [id number] GUANAKO BURKETT [place] 100 [facility] ite 100 [place] [address] 12/07/2023 10:33:19 12/08/2023 22:42:00 Sensorineural hearing loss of bilateral ears 031752041 H90.3 Right Ear:Normal hearing through 4K Hz [...] Recorded Advance Directives Directive None Recorded Payers Insurance Date Sequence Insurance Name Policy Number Policy Phillip Covered Member ID Phillip Member ID Guarantor Name 12/07/2023 1 [place] [employer] Giancarlo Severino [id number] Giancarlo Severino 12/07/2023 2 [facility] [place] Giancarlo Severino [id number] Giancarlo Severino Notes Date Note Type Note Provider Name and Address Organization Details Recorded Time 12/07/2023 text/html Patient comes in today accompanied by his for evaluation of his hearing. He thinks his hearing is pretty good except in background noise. His thinks that he cannot hear her. PHILL CLIFFORD MD [address] [place] [address], [place], [address], [facility] - [facility] 12/07/2023 11:01:34
--- OUTSIDE RECORDS SUMMARY | 2024-11-09 14:52 | XMS_ITS | Continuity of Care Document ---
Author Organization [facility] [address] [place] [address] Phone [phone] Care Team Providers Care Construction Foreman Name Role Phone Billy Washburn M.D. Care Team Information Rece iver [phone] Problems Active Problems Provider Date Deep venous [...] SIG Qnty Indications Order ing Provider Date Zoeggwry72eh/0.5ML Solution Auto-Inject Inject 10 mg subcutaneously once a week dx: e11.9 2ml E11Marycruz Castellanos M.D. 10/16/2024 Z79.4 Freestyle Lanette 3 Plus/Sensor/Glucose Monitoring SystemMisc apply one sensor to skin every 14 days dx: e10.21 6units Mirian Castellanos M.D. 07/04/2024 Rosuvastatin Mlyvvvb6yr Tablets Take 1 by mouth every day 30tabs Mirian Castellanos M.D. 01/28/2024 Basaglar Onsdwua709Gswf/ML Solution Pen-Inject 30 units in the morning Dx: E11.9 54ml Marylou Castellanos M.D. 06/11/2023 BD Pen Needle/Margie/Ultra -Fine/32G X 4mm32G X 4 mm Misc 1 pen needle to insulin pen three times a day dx: e11.9 300units Marylou Castellanos M.D. 06/07/2023 Pramipexole Dihydrochloride0.5mg Tablets Take 3 Tablets By Mouth 2-3 Hours Before Bed Time Billy Washburn M.D. Gsjodyjwr94wm Tablets Take 1 Tablet By Mouth Every Morning Billy Washburn M.D. Gfesmvvqbv521xa Capsules Take 1-3 Capsules Orally AT Bedtime Ceci Martinez MD History Medications Mounjaro7.5mg/0.5ML Solution Auto-Inject Inject 7.5 mg subcutaneously once a week dx: e11.9 2ml Marylou Castellanos M.D. 07/31/2024 - 10/16/2024 Z79.4 Zllmjgjr8pl/0.5ML Solution Auto-Inject Inject 5 mg subcutaneously once [...] 301 Procedures Date Code Description Status 10/16/2024 93153 Glucose Monitoring Interpeta tion And Report Completed 06/07/2023 92525 Glucose Monitori ng From Interstital Tissue Fluid Minimum 72 Hours Completed Medical Devices Description No Information Available Encounters Type Date Location Provider Dx Diagnosis Office Visit 10/16/2024 3:00p Main Office AN NMARIE Ingram E11.9 Type 2 diabet es mellitus without complications Z79.4 retirement (current) use of insulin E78.5 Hyperlipidemia, unsp ecified Assessments Date Code Description Provider 10/16/2024 E11.9 Type 2 diabetes mellitus wit hout complications ANN MARIE Ingram 10/16/2024 Z79.4 retirement (current) use of i nsulin ANN MARIE Ingram 10/16/2024 E78.5 Hyperlipidemia, unspecified ANN MARIE Ingram Plan of Treatment Future Appointment(s):* 01/19/2025 8:45 am - ANN MARIE Ingram at Main Office 10/16/2024 - ANN MARIE Ingram* E11.9 Type 2 diabetes mellitus without complications * 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
== END 2024-11-09 14:40 | disposition home or self-care (01) ==
PROVIDERS: PCP Internal Medicine; Visit Provider Physician Assistant
DX: Z98.890 Other specified postprocedural states (principal)
CPT/HCPCS: 99024

== ENCOUNTER → 2024-11-09 13:57 | Outpatient (BNVA) | payer MEDICARE, SELFPAY | PROVIDERS: PCP Internal Medicine; Visit Provider Physician Assistant | DX: Z98.890 Other specified postprocedural states (principal) | CPT/HCPCS: 99212 ==

== ENCOUNTER 2024-12-07 14:26 | Outpatient (AMB) | payer MEDICARE, SELFPAY ==
--- NOTE | 2024-12-07 14:29 | A.OFFVIS_ITS ---
Vital Signs 12/07/24 14:30 Height 5 ft 10 in Weight 201 lb BMI 28.8 Intake Visit Reasons: PO RT shoulder 10/27/24 DR Intake Note: Giancarlo is a 69 year old male who presents with complaints of mild intermittent discomfort in his right shoulder after undergoing right shoulder revision rotator cuff repair surgery on 10/27/2024. He is no longer taking narcotics for his discomfort. He continues with his passive range of motion exercises. Allergies losartan Allergy (Verified 12/07/24 14:30) Unknown lisinopril Adverse Reaction (Mild, Verified 12/07/24 14:30) Cough Medication List - Last Reconciled 12/08/24 by Melvin Fields MD atorvastatin 20 mg PO BEDTIME cholecalciferol (vitamin D3) (Vitamin D3) 25 mcg PO DAILY cyanocobalamin (vitamin B-12) (Vitamin B-12) 50 mcg PO DAILY empagliflozin (Jardiance) 25 mg PO QAM gabapentin 100 mg PO BEDTIME insulin glargine (Basaglar KwikPen U-100 Insulin) 30 units subcut QAM magnesium glycinate 200 mg PO DAILY omeprazole 20 mg PO QAM PRN ropinirole 0.5 - 1 mg PO BEDTIME sertraline 25 mg PO BEDTIME tirzepatide (Mounjaro) 7.5 mg subcut QWEEK turmeric 400 mg PO DAILY vit C,M-Ux-lvdbl-lutein-zeaxan 250-90-40-1 mg (PreserVision AREDS-2) 1 tab PO DAILY PFSH Medical History Heartburn Sinus tachycardia Shoulder pain RBBB (right bundle branch block with left anterior fascicular block) Orthostatic hypotension Neck pain Microalbuminuria Memory loss MCI (mild cognitive impairment) Lumbar canal stenosis Hypogonadotropic hypogonadism Hypogonadism male Erectile dysfunction Claudication Arthralgia of hand Allergic rhinitis Restless legs syndrome (RLS) Osteoarthritis DVT (deep venous thrombosis) Depression RBBB (right bundle branch block) LAFB (left anterior fascicular block) Spinal stenosis Cognitive decline Elevated cholesterol GERD (gastroesophageal reflux disease) Diabetes Sleep apnea PLMD (periodic limb movement disorder) Surgical History Hx of LASIK History of vasectomy Hx of shoulder surgery (~10/15/23) History of esophagogastroduodenoscopy (EGD) H/O colonoscopy Hx of shoulder surgery History of total left hip replacement History of right hip replacement Status post right knee replacement Family History Father Skin cancer Social History Are you a primary associate director career services to a significant other at home: No Do you presently have visiting nurse or other home services: No Alcohol intake: current Alcohol intake frequency: holidays/special occasions only Comment: counts occrect Patient Tobacco Use Status: Current someday Tobacco user Tobacco use type: Cigar Years Smoked: 15 Physical Exam Vital Signs: BMI result Body Mass Index 28.8 Extrem Other: Right shoulder examination shows that the surgical incisions are well healed, no erythema, full passive range of motion when compared to his left shoulder, mild discomfort with range of motion Assessment & Plan Assessment & Plan (1) Right shoulder pain: Code(s): M25.511 - Pain in right shoulder Category: Medical Plan Mr. Severino continues to do well after undergoing right shoulder rotator cuff repair surgery on 10/27/2024. He will continue with his passive range of motion exercises. He can progress to active range of motion exercises once he is 8 weeks out from surgery. The do's and don'ts of lifting were discussed at length with the patient. He will contact me prior to his follow-up appointment in 2 months should any questions or concerns arise. Feel free to call me at any time should questions regarding his orthopedic management arise. Coding Level of Care Code Global (54030) Diagnoses Right shoulder pain M25.511
[2024-12-07 14:30] VITALS: BMI 28.8
--- OUTSIDE RECORDS SUMMARY | 2024-12-07 17:05 | XMS_ITS | Clinical Summary ---
Author Organization [facility] Address [address] [place] [address] Care Team Providers Care Civil Engineering Project Designer Name Role Phone Billy Washburn MD Primary Care Provider [phone] Allergies Active Allergy Reactions Criticality Noted Date [...] 2007 Fall Risk Assessment 2022 Influenza Vaccine (Season Ended) 2025 RSV Adult > 60+ Yrs or Pregn ant (1 - 1-dose 75+ series) 2032 Hepatitis B Vaccines Aged Out No long er eligible based on patient's age to complete this topic RSV Ped < 20 months Aged Out No longe r eligible based on patient's age to complete this topic Care Teams Civil Engineering Project Designer Relationship Specialty Start Date End Date Billy Washburn MD [address] Primary Care [place], [place] [id number] PCP - General Internal Medicine 07/24/21
== END 2024-12-07 15:13 | disposition home or self-care (01) ==
LOC: HO.HOS 14:27
PROVIDERS: PCP Internal Medicine; Visit Provider Orthopaedic Surgery
DX: M25.511 Pain in right shoulder (principal)
CPT/HCPCS: 99024

== ENCOUNTER → 2024-12-07 14:26 | Outpatient (BNVA) | payer MEDICARE, SELFPAY | PROVIDERS: PCP Internal Medicine; Visit Provider Orthopaedic Surgery | DX: M25.511 Pain in right shoulder (principal); Z47.89 Encounter for other orthopedic aftercare; Z98.890 Other specified postprocedural states | CPT/HCPCS: 99212 ==

== ENCOUNTER 2025-02-27 13:17 | Outpatient (AMB) | payer MEDICARE, SELFPAY ==
--- OUTSIDE RECORDS SUMMARY | 2025-02-22 13:27 | XMS_ITS | Encounter Summary ---
Author Organization [facility] Address [address] [place] [address] Care Team Providers Care Senior Talent Management Consultant Name Role Phone Unavailable Primary Care Provider Unavailabl e Reason for Referral * Consultation (Routine) - Closed Specialty Diagnoses / Procedures Referred By Daly t Referred To Contact Radiation Oncology Diagnoses Prostate cancer (CMS/HCC V24, CMS/HCC V28) Leonora Aldana MD [address] [place] [address] Phone: tel: fax: Referral ID Status Reason Start Date Expiration Date V isits Requested Visits Authorized [id number] Closed Specialty Services Required 02/07/2025 02/07/2026 1 1 Reason for Visit * Reason Comments Consult Prostate * Consultation (Routine) - Closed Specialty Diagnoses / Procedures Referred By Contac t Referred To Contact Radiation Oncology Diagnoses Prostate cancer (CMS/HCC V24, CMS/HCC V28) Leonora Aldana MD [address] [place] [address] Phone: tel: fax: Referral ID Status Reason Start Date Expiration Date V isits Requested Visits Authorized [id number] Closed Specialty Services Required 02/07/2025 02/07/2026 1 1 Encounter Details Date Type Department Care Team (Latest Contact Info) Description 02/22/2025 1:27 PM EDT - 02/22/2025 11:59 PM EDT Hospital Encounter [facility] Radiation Oncology [address] [place] [id number] Breanna Mendez MD [address] [place] [address] Prostate cancer ([facility] V24, [facility] V28) Discharge Disposition: Home or Self Care Social History Tobacco Use Types Packs/Day Years Used Date Smoking Tobacco: Never Smokeless Tobacco: Never Alcohol Use Standard Drinks/Week Comments Not Currently 0 (1 standard drink = 0.6 oz pur e alcohol) Sex and Gender Information Value Date Recorded Sex Assigned at Not on file Legal Sex Male 7:57 PM EST Gender Identity Not on file Sexual Orientation Not on file Occupation Industry Job Start Date Job End Date Retired Not on file Not on file Not on file documented as of this encounter Last Filed Vital Signs Vital Sign Reading Time Taken Comments Blood Pressure 102/66 02/22/2025 1:48 PM EDT Pulse 91 02/22/2025 1:48 PM EDT Temperature - - Respiratory Rate - - Oxygen Saturation 97% 02/22/2025 1:48 PM EDT Inhaled Oxygen Concentration - - Weight 90.3 kg (199 lb) 02/22/2025 1:48 PM EDT Height 177.8 cm (5' 10 ) 02/22/2025 1:48 PM EDT Body Mass Index 28.55 02/22/2025 1:48 PM EDT documented in this encounter Medications at Time of Discharge BD Margie 2nd Gen Pen Needle 32 gauge x 5/32 needle 1 PEN NEEDLE TO INSULIN PEN THREE TIMES A DAY DX: E11.9 05/19/2024 blood sugar diagnostic (FreeStyle Lite Strips) test strip USE 1 TEST STRIP VIA METER TWICE A DAY FOR DMII E11.9 05/17/2024 cholecalciferol (VITAMIN D-3) 25 mcg (1,000 unit) tablet Take 1 tablet (1,000 Units total) by mouth daily. diclofenac (VOLTAREN) 1 % topical gel Apply topically. 10/14/2021 diphenhydrAMINE- acetaminophen (TYLENOL PM) 25-500 mg per tablet Take by mouth. ferrous sulfate 325 mg (65 mg elemental iron) tablet Take 1 tablet (325 mg total) by mouth. 12/05/2019 FreeStyle Lanette 3 Plus Sensor device by Not Applicable route. 07/04/2024 ibuprofen (ADVIL,MOTRIN) 200 mg tablet Take 2 tablets (400 mg total) by mouth. insulin glargine,hum.rec .anlog (Basaglar KwikPen U-100 Insulin) 100 unit/mL (3 mL) injection pen Inject 30 Units under the skin daily. 06/11/2023 Jardiance 25 mg tablet Take 1 tablet (25 mg total) by mouth 1 (one) time each day. 03/04/2020 Mounjaro 10 mg/0.5 mL injection Inject 0.5 mL (10 mg total) under the skin every 7 (seven) days. 10/16/2024 omeprazole OTC (PriLOSEC OTC) 20 mg EC tablet Take 1 tablet (20 mg total) by mouth once daily as needed. [id number] tbu-CjSy-RXb-asb -C (Plenvu) 140-9-5.2 gram powder in packet, sequential TAKE 1 PACKET DISSOLVED IN WATER TWICE A DAY DIRECTED 10/13/2018 sertraline (ZOLOFT) 50 mg tablet Take 1 tablet (50 mg total) by mouth daily. 11/13/2024 tadalafiL (CIALIS) 5 mg tablet TAKE 1 TABLET BY MOUTH DAILY,INSTR:1 HOUR BEFORE SEXUAL ACTIVITY 04/06/2022 vitamins A,C,F-zdfr-hiuje r 4,296 mcg-226 mg-90 mg capsule Take 1 capsule by mouth 2 times daily. documented as of this encounter Discharge Disposition Disposition Code Departure Means Destination Home or Self Care documented in this encounter Progress Notes * Mary Ruth - 02/22/2025 2:00 PM EDTEncounter addended by: Mary Ruth on: 02/26/2025 9:00 AM Actions taken: Charge Capture section accepted * Narda Mendoza NP - 02/22/2025 2:00 PM EDT Images from the original note were not included. Oncological History: 07/23/2016 PSA 4.1 11/14/2024 PSA 23 11/29/2024 PSA 27 025 Prostate Biopsy 12/26/2024 Prostate MRI 01/24/2025 PSMA Focal activity within the prostate gland in keeping with biopsy-proven prostate carcinoma. No definite PSMA PET findings to suggest metastatic disease 02/04/2025 Referred to Radiation Oncology with +/- ADT and follow-up with Dr. Duke to discuss RALP. 02/21/[address] Duke to discuss RALP. * Carmelita Greene MA - 02/22/2025 2:00 PM EDT Patient is here for in office consult with Dr. Mendez, accompanied by his Clare Patient reports currently no symptoms related to prostate. He does have second opinion at [facility] with surgeon to discuss prostatectomy tomorrow. Medications and allergies reviewed and reconciled. * Breanna Mendez MD - 02/22/2025 2:00 PM EDT Images from the original note were not included. [address] [phone] Radiation Oncology Outpatient Consult Staff Physician: Breanna Mendez MD Requesting Physician: Leonora Aldana, * Date of Service: 02/22/2025 Accompanied by: Diagnosis: 1. Prostate cancer (CMS/HCC V24, CMS/HCC V28) Ambulatory referral to Radiation Oncology Ambulatory referral to Radiation Oncology Stage: Cancer Staging No matching staging information was found for the patient. 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 PSA 27 with ROXY on MR of prostate PLAN: I reviewed with the patient and his as well as daughter who was on the phone, the factors thatwe use to determine the best treatment. His sample size was too small to provide Cab[place]on score. HisPSA was 27. He has had an MRI of the prostate which shows extracapsular extension. We discussed thevarious options ranging from observation, ADT, external beam radiation, or surgery. Secondary to his other health issues I recommended that he not have ADT. We did discuss having radiation alone. I reviewed with him the sim process. We discussed risks and side effects both acute and long-term. All of his questions were answered. As were his and daughter. At this point he had no additional questions or concerns. He will meet with another surgeon tomorrow. Advised to call if any other questions. He is aware that he would need fiducials and [employer] if he should proceed with radiation. Recommended a 5 and a half week course of treatment. Electronically signed by Breanna Mendez MD Subjective HISTORY OF PRESENT ILLNESS: Giancarlo Severino is a 69 y.o. male who presents with prostate cancer and is seen in consultation today for options. Oncological History: 07/23/2016 PSA 4.1 11/14/2024 PSA 23 11/29/2024 PSA 27 025 Prostate Biopsy 12/26/2024 Prostate MRI 01/24/2025 PSMA Focal activity within the prostate gland in keeping with biopsy-proven prostate carcinoma. No definite PSMA PET findings to suggest metastatic disease 02/04/2025 Referred to Radiation Oncology with +/- ADT and follow-up with Dr. Duke to discuss RALP. 02/21/[address] Duke to discuss RALP. PRIOR RT: no PRIOR CHEMO: no Hx of connective tissue disorder: no Hx of implanted device: no Hx of inflammatory bowel disease: no PROBLEM LIST: There is no problem list on file for this patient. PAST MEDICAL HISTORY: Past Medical History: Diagnosis Date Blood clotting tendency (CMS/HCC V24) DX:Blood clotting tendency (HCC) Diabetes mellitus (CMS/HCC V24, CMS/HCC V28) DX:Diabetes mellitus (HCC) PAST SURGICAL HISTORY: Past Surgical History: Procedure Laterality Date JOINT REPLACEMENT PROCEDURE:JOINT REPLACEMENT KNEE SURGERY PROCEDURE:KNEE SURGERY SHOULDER SURGERY PROCEDURE:SHOULDER SURGERY GYNECOLOGICAL HISTORY (if applicable): NA FAMILY HISTORY: No family history on file. SOCIAL HISTORY: Social History Socioeconomic History Marital status: Spouse name: Not on file Number of children: Not on file Years of education: Not on file Highest education level: Not on file Occupational History Not on file Tobacco Use Smoking status: Never Smokeless tobacco: Never Substance and Sexual Activity Alcohol use: Not on file Drug use: Not on file Sexual activity: Not on file Other Topics Concern Not on file Social History Narrative Not on file ALLERGIES: Allergies as of 02/22/2025 - Reviewed 02/22/2025 Allergen Reaction Noted Lisinopril Cough and Pain 08/06/2021 MEDICATIONS: No current outpatient medications on file. REVIEW OF SYSTEMS: Review of Systems - Oncology The Karnofsky performance scale today is 60, Requires occasional assistance, but is able to care for most of his personal needs (ECOG equivalent 2). ADL: Objective PHYSICAL EXAM: Visit Vitals Smoking Status Never There is no height or weight on file to calculate BMI. No data recorded Physical Exam General: Patient is a comfortably in his chair. He is accompanied by his . He defers to her fornearly everything. He apparently significant dementia. HEENT: normocephalic/atraumatic. PERRL, EOMI Pulm:regular and non labored Skin:warm and dry Extremities:without edema Neuro:alert and oriented, speech and gait within normal limits Psych:affect appropriate for situation DIAGNOSTIC REPORTS REVIEWED: DISCLAIMER: This document was created with the assistance of medical dictation software. Every effort was made to ensure that it is free from typographical errors. However, due to the nature of this software, some transcriptional inaccuracies may remain. documented in this encounter Plan of Treatment Scheduled Referrals Name Type Priority Associated Diagnoses Order Schedule Ambulatory referral to Radiation Oncology Outpatient Referral Routine Prostate cancer ([facility] V24, [facility] V28) Once for 1 Occurrences starting 02/22/2025 until 02/22/2025 documented as of this encounter Visit Diagnoses Diagnosis Prostate cancer ([facility] V24, [facility] V28) Malignant neoplasm of prostate documented in this encounter Historical Medications * This list may reflect changes made after this encounter. diphenhydrAMINE- acetaminophen (TYLENOL PM) 25-500 mg per tablet Take by mouth. blood sugar diagnostic (FreeStyle Lite Strips) test strip USE 1 TEST STRIP VIA METER TWICE A DAY FOR DMII E11.9 05/17/2024 FreeStyle Lanette 3 Plus Sensor device by Not Applicable route. 07/04/2024 cholecalciferol (VITAMIN D-3) 25 mcg (1,000 unit) tablet Take 1 tablet (1,000 Units total) by mouth daily. diclofenac (VOLTAREN) 1 % topical gel Apply topically. 10/14/2021 Jardiance 25 mg tablet Take 1 tablet (25 mg total) by mouth 1 (one) time each day. 03/04/2020 ferrous sulfate 325 mg (65 mg elemental iron) tablet Take 1 tablet (325 mg total) by mouth. 12/05/2019 insulin glargine,hum.rec .anlog (Basaglar KwikPen U-100 Insulin) 100 unit/mL (3 mL) injection pen Inject 30 Units under the skin daily. 06/11/2023 ibuprofen (ADVIL,MOTRIN) 200 mg tablet Take 2 tablets (400 mg total) by mouth. [id number] ovt-FmMi-ZBc-asb -C (Plenvu) 140-9-5.2 gram powder in packet, sequential TAKE 1 PACKET DISSOLVED IN WATER TWICE A DAY DIRECTED 10/13/2018 omeprazole OTC (PriLOSEC OTC) 20 mg EC tablet Take 1 tablet (20 mg total) by mouth once daily as needed. BD Margie 2nd Gen Pen Needle 32 gauge x /32 needle 1 PEN NEEDLE TO INSULIN PEN THREE TIMES A DAY DX: E11.9 05/19/2024 sertraline (ZOLOFT) 50 mg tablet Take 1 tablet (50 mg total) by mouth daily. 11/13/2024 tadalafiL (CIALIS) 5 mg tablet TAKE 1 TABLET BY MOUTH DAILY,INSTR:1 HOUR BEFORE SEXUAL ACTIVITY 04/06/2022 Mounjaro 10 mg/0.5 mL injection Inject 0.5 mL (10 mg total) under the skin every 7 (seven) days. 10/16/2024 vitamins A,C,I-orjr-duyrp r 4,296 mcg-226 mg-90 mg capsule Take 1 capsule by mouth 2 times daily. added in this encounter
--- OUTSIDE RECORDS SUMMARY | 2025-02-22 13:27 | XMS_ITS | Encounter Summary ---
Author Organization [facility] [place] [address] Care Team Providers Care Furnace Cooler Name Role Phone Unavailable Primary Care Provider Unavailabl e Encounter Details Date Type Department Care Team (Latest Contact Info) Description 02/22/2025 1:27 PM EDT - 02/22/2025 11:59 PM EDT Hospital Encounter [facility] Radiation Oncology [address] [place] [address] Discharge Disposition: Home or Self Care Social [...] on file documented as of this encounter Medications at Time of Discharge [...] total) by mouth once daily as needed. [id number] ief-EnCf-GFo-asb -C (Plenvu) 140-9-5.2 gram powder in packet, sequential TAKE 1 PACKET DISSOLVED IN WATER TWICE A DAY DIRECTED 10/13/2018 sertraline (ZOLOFT) 50 mg tablet Take 1 tablet (50 mg total) by mouth daily. 11/13/2024 tadalafiL (CIALIS) 5 mg tablet TAKE 1 TABLET BY MOUTH DAILY,INSTR:1 HOUR BEFORE SEXUAL ACTIVITY 04/06/2022 vitamins A,C,R-oiyi-zpfsa r 4,296 mcg-226 mg-90 mg capsule Take 1 capsule by mouth 2 times daily. documented as of this encounter Discharge Disposition Disposition Code Departure Means Destination Home or Self Care documented in this encounter Plan of Treatment Not on file documented as of this encounter Visit Diagnoses Not on filedocumented in this encounter
--- OUTSIDE RECORDS SUMMARY | 2025-02-23 10:00 | XMS_ITS | Encounter Summary ---
Author Organization [facility] Address [address] [facility] [address] [place] [address] Phone Care Team Providers Care Process Trainer Name Role Phone Billy Washburn MD Primary Care Provider + Self-Referred, Patient Unavailable Unavailab Bhargavi Bateman MD Unavailable [phone] Encounter Details Date Type Department Care Team (Late st Contact Info) Description 02/23/2025 10:00 AM EDT Office Visit [facility] [address] [place] [address], [address] [place] [address] Ubaldo Britt MD [address] [place] [address] [email or web address] Prostate cancer (Primary Dx) Social History Tobacco Use Types Packs/Day Years Used Date Smoking Tobacco: Former Cigarettes Smokeless Tobacco: Never Alcohol Use Standard Drinks/Week Comments Not Currently 0 (1 standard drink = 0.6 oz pur e alcohol) Child or Family Care Answer Date Record ed Do you have problems with on e of the following making it difficult for you to work, study, or receive health care? No 01/30/2025 Education Answer Date Recorded Are you interested in more education? Not on sebastián e 05/31/2023 Are you concerned about learning? Not on file 05/31/2023 No 05/31/2023 No 05/31/2023 Food Answer Date Recorded Within the past 6 months we worried whether our food would run out before we got money to buy more. Never True 01/30/2025 Within the past 6 months the food we bought just didn't last and we didn't have enough money to get more. Never True Residential Stability Answer Date Recor ded What is your housing situation today? I have ju sing 01/30/2025 How many times have you move d in the past 12 months? Zero (I did not move) 01/30/2025 Paying for Meds Answer Date Recorded Do you have trouble paying for medicines? No 01/30/2025 Paying Utility Bills Answer Date Record ed Do you have trouble paying your heating or elect ricity bill? No 01/30/2025 Transportation Answer Date Recorded Has the lack of transportati on kept you from medical appointments or from getting medications? No 01/30/2025 Digital Access Answer Date Recorded No 05/31/2023 No 05/31/2023 Reliable internet access at home? Not on file 05/31/2023 Device with a working camera? Not on file Sex and Gender Information Value Date Recorded Sex Assigned at Male 01/19/2025 1:48 PM EDT Legal Sex Male 2:01 PM EDT Gender Identity Male 01/19/2025 1:48 PM EDT Sexual Orientation Straight 01/19/2025 1: 48 PM EDT documented as of this encounter Last Filed Vital Signs Vital Sign Reading Time Taken Comments Blood Pressure 120/58 02/23/2025 9:45 AM EDT Pulse 73 02/23/2025 9:45 AM EDT Temperature 37.1 C (98.7 F) 02/23/2025 9:42 AM EDT Respiratory Rate 18 02/23/2025 9:42 AM EDT Oxygen Saturation 98% 02/23/2025 9:45 AM EDT Inhaled Oxygen Concentration - - Weight 89.3 kg (196 lb 13.9 oz) 02/23/2025 9:42 AM EDT Height - - Body Mass Index 29.13 01/31/2025 7:20 AM EDT documented in this encounter Progress Notes * Ubaldo Britt MD - 02/23/2025 10:00 AM EDT [facility]???S [facility] DEPARTMENT OF UROLOGY [facility] - [address] [place] [id number], [address] [place] [address] [id number] Affiliated Sites: [facility]???s [facility]/[address] [id number] Chief Complaint: Prostate Cancer History of Present Illness Mr. Giancarlo Severino is a 69 y.o. male here to discuss his recently diagnosed prostate cancer. 07/13/2016: PSA 4.1 11/14/2024: PSA 23.0 11/29/2024: PSA 27 Lab Results Component Value Date PSAMON 25.25 (H) 01/31/2025 He had no metastatic disease by MRI. MRI did demonstrate a PIRADS 5 anterior lesion with ROXY. The prostate volume was 33cc. His biopsy on 01/02/25 demonstrated left disease with Jose score pattern 4, too small for grading.. PSMA PET on 01/24/25 negative for metastatic disease His urinary symptoms include nocturia x2, mild urgency, frequency. Bowel movement 1-2x a day He has poor erectile function . Medical history: memory loss and cognitive impairement related to vascular dementia, HTN/, DVT 2015-> blood thinners for six months, MIKAYLA, IDDM Surgical history: No abdominal surgeries Social history: quit smoking about a month ago His family history is significant for no relative with prostate adenocarcinoma ?Pathology Results: No results found for this or any previous visit (from the past 8760 hours). Last test results: No results found for: PSA Lab Results Component Value Date CRE 0.68 01/31/2025 Past Medical History: Diagnosis Date Allergic rhinitis due to pollen Arthralgia of both hands Atherosclerosis of [place] arteries of extremity with intermittent claudication Diabetes mellitus DVT (deep venous thrombosis) Erectile dysfunction Hypercholesteremia Hypogonadism male LAFB (left anterior fascicular block) Lumbar canal stenosis MCI (mild cognitive impairment) Memory loss Orthostatic hypotension MIKAYLA (obstructive sleep apnea) Peripheral nerve disease RLS (restless legs syndrome) Sinus tachycardia Spinal stenosis Past Surgical History: Procedure Laterality Date KNEE ARTHROPLASTY Right TOTAL HIP ARTHROPLASTY 2020 VASECTOMY Patient Active Problem List Diagnosis Primary osteoarthritis involving multiple joints Current Outpatient Medications Medication Sig Dispense Refill Last Dispense acetaminophen (TYLENOL) 500 MG tablet Take 1,000 mg by mouth daily as needed for pain (specific location in comments). Unknown (patient-reported) amoxicillin (AMOXIL) 500 MG capsule Take 500 mg by mouth daily. Unknown (patient-reported) BASAGLAR KWIKPEN U-100 INSULIN 100 unit/mL (3 mL) InPn injection pen Inject 30 Units under the skinevery morning. Unknown (patient-reported) cholecalciferol (VITAMIN D3) 25 MCG (1,000 unit) tablet Take 1,000 Units by mouth daily. Unknown (patient-reported) citalopram (CELEXA) 10 MG tablet Take 10 mg by mouth. Unknown (patient-reported) FREESTYLE FELICITAS 3 PLUS SENSOR Mikki by NOT APPLICABLE route. Unknown (patient-reported) ibuprofen (ADVIL,MOTRIN) 200 MG tablet Take 400 mg by mouth daily as needed for pain (specific location in comments). Unknown (patient-reported) ibuprofen (ADVIL,MOTRIN) 600 MG tablet Take 600 mg by mouth every 6 (six) hours as needed. (Patientnot taking: Reported on 02/07/2025) Unknown (patient-reported) JARDIANCE 25 mg tablet Take 25 mg by mouth every morning. Unknown (patient-reported) magnesium chloride (MAG 64 ORAL) Take by mouth. Unknown (patient-reported) MAGNESIUM ORAL Take 1 tablet by mouth nightly at bedtime. Unknown (patient-reported) metFORMIN (GLUCOPHAGE) 500 MG tablet 500 mg. (Patient not taking: Reported on 09/20/2023) Unknown (patient-reported) MOUNJARO 10 mg/0.5 mL PnIj subcutaneous pen Inject 10 mg under the skin once a week. Unknown (patient-reported) omeprazole (PRILOSEC) 20 MG tablet Take 20 mg by mouth as needed. Unknown (patient-reported) pramipexole (MIRAPEX) 0.5 MG tablet 0.5 mg. (Patient not taking: Reported on 02/07/2025) Unknown (patient-reported) PREVIDENT 5000 DRY MOUTH 1.1 % Pste Place 1 Application onto teeth nightly at bedtime. Unknown (patient-reported) rosuvastatin (CRESTOR) 5 MG tablet Take 1 tablet by mouth every morning. Unknown (patient-reported) sertraline (ZOLOFT) 50 MG tablet Take 50 mg by mouth daily. Unknown (patient-reported) TRULICITY 4.5 mg/0.5 mL subcutaneous injection Inject under the skin. Unknown (patient-reported) vitamins A,C,I-nbzb-amsdxi (PRESERVISION AREDS) 4,296 mcg-226 mg-90 mg Cap Take 1 capsule by mouth 2 (two) times a day with meals. Unknown (patient-reported) No current facility-administered medications for this visit. Allergies Allergen Reactions Lisinopril Pain in legs Losartan Pain in legs Social History Tobacco Use Smoking status: Former Types: Cigarettes Smokeless tobacco: Never Substance Use Topics Alcohol use: Not Currently Drug use: Never ? No family history on file. Physical Exam There were no vitals taken for this visit. Patient is a well and thin appearing White male Neck is without masses? Normal respiratory effort? Abdomen is soft, nontender with no CVA tenderness, hernias or hepatosplenomegaly.? Leg peripheral pulses are 2+ with no evidence of edema? Patient is alert and oriented x3 with normal mood and affect.? Assessment and Plan? I have reviewed and summarized the patient's records. In summary, Mr. Giancarlo Severino has likely T3,prostate cancer with a PSA of 25 ng/mL and no evidence of metastatic disease. He has high risk disease. In my estimation his life expectancy is unknown than 10 years. We will need to obtain no additional tests. ? We discussed the implications of clinically localized prostate cancer and the treatment options of watchful waiting, active surveillance, hormonal therapy, radiation therapy (both brachytherapy and external beam), radical prostatectomy (both robotic and open) and ablative therapy. For each I outlined the relative pros and cons of each approach. With regard to surgery I discussed the nature of theoperative, the risks of the procedure including but no limited to infections, hemorrhage, transfusion, heart attack, stroke, injury from positioning on the table, impotence, incontinence, stricture disease, injury to other organs and . With regard to surgery we discussed open and minimally invasive approaches. For radiation therapy we discussed the differences between external mean, interstitial therapy and combined forms. We discussed the need for additional therapy after both surgery andradiation therapy for either adverse pathology or rising PSA. I did discuss that the patient was at elevated risk for complications of prostatectomy, particularly given his comorbidities. We also discussed that, given the high risk disease, there is a substantial risk that surgery alone does not cure him (I cited the percentage as 40%). It is reasonable to try and avoid hormone therapy, but I did discuss that the functional outcomes of surgery would also be worse given the patient's comorbidities. Despite the increased risk, the patient and his family agree that prostatectomy is a reasonable approach. He has also seen radiation oncology and medical oncology who concur that surgery is the preferred option moving forward. ? The patient has elected to undergo a robotic radical prostatectomy with lymph node dissection.. To be scheduled at next available. Ubaldo Britt MD Urologic Oncology Department of Urology [facility] Total time spent on 02/23/2025 for this visit in iytg-tg-bgmr and non tzkg-qt-zaki time reviewing, documenting, and obtaining, clinical information, coordinating with the care team and/or other specialists, and counseling the patient: 60 minutes. documented in this encounter Plan of Treatment Upcoming Encounters Date Type Department Care Team (Late st Contact Info) Description 03/08/2025 10:40 AM EDT Pre-Admission Testing [address] [address] Ubaldo Britt MD [address] [place] [address] 03/22/2025 Procedure Pass [facility] [address] [address] 03/22/2025 11:53 AM EDT Hospital Encounter [facility] Periop 1st floor [address] [place] [address] Ubaldo Britt MD [address] [place] [address] 03/22/2025 11:53 AM EDT - 03/22/2025 4:16 PM EDT Surgery [facility] Periop 1st floor [address] [place] [address] Ubaldo Britt MD [address] [address] [email or web address] ROBOTIC SINGLE PORT LAPAROSCOPIC RADICAL PROSTATECTOMY WITH BILATERAL LYMPH NODE DISSECTION 03/30/2025 2:00 PM EDT Office Visit [facility] [address] [facility] [address] [place] [address] Juan Cheney PA-C [address] [place] [address] [email or web address] 04/06/2025 9:10 AM EDT Telemedicine [facility] Urology [address] [facility] [address] [place] [address] Ubaldo Britt MD [address] [address] [email or web address] Scheduled Orders Name Type Priority Associated Diagnoses Orde r Schedule Hemoglobin A1c Lab Routine Prostate cancer Expected: 02/25/2025, Expires: 05/28/2025 CBC and differential Lab Routine Prostate cancer Expected: 02/25/2025, Expires: 02/25/2026 Basic metabolic panel Lab Routine Prostate cancer Expected: 02/25/2025, Expires: 02/25/2026 Urinalysis w/reflex Urine Culture Lab Routine Prostate cancer Expected: 02/25/2025, Expires: 02/25/2026 Scheduled Procedures Name Priority Associated Diagnoses Date/Ti az ROBOTIC SINGLE PORT LAPAROSCOPIC RADICAL PROSTATECTOMY WITH BILATERAL LYMPH NODE DISSECTION Prostate cancer 03/22/2025 11:53 AM EDT documented as of this encounter Visit Diagnoses Diagnosis Prostate cancer- Primary Malignant neoplasm of prostate Prostate cancer Malignant neoplasm of prostate documented in this encounter Care Teams Process Trainer Relationship Specialty Start Date End Date Billy Washburn MD [address] [place] [address] PCP - General Internal Medicine 05/06/23 Self-Referred, Patient 01/19/25 Bhargavi Tracy MD [address] [place] [address] for Oncology, [address] [address] [email or web address] Medical Oncology 01/19/25 documented as of this encounter Additional Source Comments The information contained in this document represents components of the legal health record. It is not the complete legal health record.[facility]
--- NOTE | 2025-02-27 13:19 | A.OFFVIS_ITS ---
Vital Signs 02/27/25 13:22 Height 5 ft 10 in Weight 194 lb BMI 27.8 Intake Visit Reasons: OV RT shoulder 10/27/24 Intake Note: Giancarlo is a 69 year old male who presents today as a follow up for his Right shoulder 10/27/24 . At today's visit patient states that he feels that his ROM is doing great and that he finished his physical therapy. No numbness or tingling to report at this time. Allergies losartan Allergy (Verified 02/27/25 13:22) Unknown lisinopril Adverse Reaction (Mild, Verified 02/27/25 13:22) Cough Medication List - Last Reconciled 02/27/25 by Melvin Fields MD atorvastatin 20 mg PO BEDTIME cholecalciferol (vitamin D3) (Vitamin D3) 25 mcg PO DAILY cyanocobalamin (vitamin B-12) (Vitamin B-12) 50 mcg PO DAILY empagliflozin (Jardiance) 25 mg PO QAM gabapentin 100 mg PO BEDTIME insulin glargine (Basaglar KwikPen U-100 Insulin) 30 units subcut QAM magnesium glycinate 200 mg PO DAILY omeprazole 20 mg PO QAM PRN ropinirole 0.5 - 1 mg PO BEDTIME sertraline 25 mg PO BEDTIME tirzepatide (Mounjaro) 7.5 mg subcut QWEEK turmeric 400 mg PO DAILY vit C,Q-Jj-dbdqz-lutein-zeaxan 250-90-40-1 mg (PreserVision AREDS-2) 1 tab PO DAILY PFSH Medical History Heartburn Sinus tachycardia Shoulder pain RBBB (right bundle branch block with left anterior fascicular block) Orthostatic hypotension Neck pain Microalbuminuria Memory loss MCI (mild cognitive impairment) Lumbar canal stenosis Hypogonadotropic hypogonadism Hypogonadism male Erectile dysfunction Claudication Arthralgia of hand Allergic rhinitis Restless legs syndrome (RLS) Osteoarthritis DVT (deep venous thrombosis) Depression RBBB (right bundle branch block) LAFB (left anterior fascicular block) Spinal stenosis Cognitive decline Elevated cholesterol GERD (gastroesophageal reflux disease) Diabetes Sleep apnea PLMD (periodic limb movement disorder) Surgical History Hx of LASIK History of vasectomy Hx of shoulder surgery (~10/15/23) History of esophagogastroduodenoscopy (EGD) H/O colonoscopy Hx of shoulder surgery History of total left hip replacement History of right hip replacement Status post right knee replacement Family History Father Skin cancer Social History Are you a primary pediatric acute care unit nurse to a significant other at home: No Do you presently have visiting nurse or other home services: No Alcohol intake: current Alcohol intake frequency: holidays/special occasions only Comment: counts occrect Patient Tobacco Use Status: Current someday Tobacco user Tobacco use type: Cigar Years Smoked: 15 Physical Exam Vital Signs: BMI result Body Mass Index 27.8 Extrem Other: Right shoulder examination shows that the surgical incisions are well healed, no erythema, almost full range of motion when compared to his left shoulder, 5/5 strength with supraspinatus testing, no instability Assessment & Plan Assessment & Plan (1) Right shoulder pain: Code(s): M25.511 - Pain in right shoulder Category: Medical Plan Mr. Severino continues to do well after undergoing right shoulder revision rotator cuff repair surgery on 10/27/2024. Will continue with his home stretching program. The do's and don'ts of lifting were discussed at length with the patient. He will follow up with me on an as-needed basis should his symptoms not continue to improve over the next few months. Feel free to call me at any time should questions regarding his orthopedic management arise. I spent 20 minutes in reviewing the patient's records and imaging studies, seeing the patient and documenting in the medical record. Coding Level of Care Code Est Pt Level 3 (56373) Complex EM visit Add On G2211 Diagnoses Right shoulder pain M25.511
[2025-02-27 13:22] VITALS: BMI 27.8
--- OUTSIDE RECORDS SUMMARY | 2025-02-27 14:08 | XMS_ITS | Encounter Summary ---
Author Organization [facility] Address [address] [facility] [address] [place] [address] Phone Care Team Providers Care Hide Washer Name Role Phone Billy Washburn MD Primary Care Provider + Self-Referred, Patient Unavailable Unavailab Bhargavi Bateman MD Unavailable [phone] Reason for Referral * Consultation (Within 2 weeks) - New Request Specialty Diagnoses / Procedures Referred By Daly cortez Referred To Contact Ubaldo Britt MD [address] [facility] [address] [place] [address] Phone: tel: fax: mailto:[email or web address] [facility]'s [address] [address] Phone: tel: Referral ID Status Reason Start Date Expiration Date V isits Requested Visits Authorized [id number] New Request 02/27/2025 02/27/2026 1 1 Scheduling Instructions PPE FH Encounter Details Date Type Department Care Team ([facility] st Contact Info) Description 02/27/2025 Orders Only [facility] Urology [address] [facility] [address]3 [place] [address] Taty [email or web address] Adenocarcinoma of prostate (Primary Dx) Social History Tobacco Use Types [...] PM EDT documented as of this encounter Plan of Treatment Upcoming Encounters Date Type Department Care Team (Late st Contact Info) Description 03/08/2025 10:40 AM EDT Pre-Admission Testing [address] [address] Ubaldo Britt MD [address] [address] 03/22/2025 [facility] [address] [place] [address] 03/22/2025 11:53 AM EDT [facility] [address] [place] [address] Ubaldo Britt MD [address] [address] 03/22/2025 11:53 AM EDT - 03/22/2025 4:16 PM EDT Surgery [address] [place] [address] Ubaldo Britt MD [address] [place] [address] ROBOTIC SINGLE PORT LAPAROSCOPIC RADICAL PROSTATECTOMY WITH BILATERAL LYMPH NODE DISSECTION 03/30/2025 2:00 PM EDT Office Visit [facility] [address] [place] [address] [address] [address] Juan Cheney, DENNYC [address] [place] [address] [email or web address] 04/06/2025 9:10 AM EDT Telemedicine [facility] Urology [address] [facility] [place] [address] Ubaldo Britt MD [address] [place] [address] [email or web address] Scheduled Procedures Name Priority Associated Diagnoses Date/Ti me ROBOTIC SINGLE PORT LAPAROSCOPIC RADICAL PROSTATECTOMY WITH BILATERAL LYMPH NODE DISSECTION Prostate cancer 03/22/2025 11:53 AM EDT Scheduled Referrals Name Type Priority Associated Diagnoses Order Schedule Ambulatory referral to pre-op [facility] Outpatient Referral Routine Ordered: 02/27/2025 documented as of this encounter Visit Diagnoses Diagnosis Adenocarcinoma of prostate- Primary Malignant neoplasm of prostate Prostate cancer Malignant neoplasm of prostate documented in this encounter Care Teams Hide Washer Relationship Specialty Start Date End Date Billy Washburn MD [address] [address] PCP - General Internal Medicine 05/06/23 Self-Referred, Patient 01/19/25 Bhargavi Tracy MD [address] [place] [address] [address] [email or web address] 01/19/25 documented as of this encounter Additional Source Comments The information contained in this document represents components of the legal health record. It is not the complete legal health record.[facility]
--- OUTSIDE RECORDS SUMMARY | 2025-02-27 14:09 | XMS_ITS | Clinical Summary ---
Author Organization [facility] Address [address] [place] [address] Phone Care Team Providers Care Certified Pharmacy Technician Name Role Phone Unavailable Primary Care Provider Unavailabl e Allergies Active Allergy Reactions Criticality Noted Date Comments Lisinopril Cough,Pain Low 08/06/2021 Other reaction(s): Pain in both legs leg cramps Pain in legs leg cramps Medications vitamins A,C,E-zinc-chris er 4,296 mcg-226 mg-90 mg capsule Take 1 capsule by mouth 2 times daily. Active Mounjaro 10 mg/0.5 mL injection Inject 0.5 mL (10 mg total) under the skin every 7 (seven) days. 5 Active tadalafiL (CIALIS) 5 mg tablet TAKE 1 TABLET BY MOUTH DAILY,INSTR:1 HOUR BEFORE SEXUAL ACTIVITY 2 Active sertraline (ZOLOFT) 50 mg tablet Take 1 tablet (50 mg total) by mouth daily. 5 Active BD Margie 2nd Gen Pen Needle 32 gauge x needle 1 PEN NEEDLE TO INSULIN PEN THREE TIMES A DAY DX: E11.9 4 Active omeprazole OTC (PriLOSEC OTC) 20 mg EC tablet Take 1 tablet (20 mg total) by mouth once daily as needed. Active [id number] als-LtQj-ZLu-as b-C (Plenvu) 140-9-5.2 gram powder in packet, sequential TAKE 1 PACKET DISSOLVED IN WATER TWICE A DAY DIRECTED 9 Active ibuprofen (ADVIL,MOTRIN) 200 mg tablet Take 2 tablets (400 mg total) by mouth. Active insulin glargine,hum.re c.anlog (Basaglar KwikPen U-100 Insulin) 100 unit/mL (3 mL) injection pen Inject 30 Units under the skin daily. 3 Active ferrous sulfate 325 mg (65 mg elemental iron) tablet Take 1 tablet (325 mg total) by mouth. 0 Active Jardiance 25 mg tablet Take 1 tablet (25 mg total) by mouth 1 (one) time each day. 0 Active diclofenac (VOLTAREN) 1 % topical gel Apply topically. 2 Active cholecalciferol (VITAMIN D-3) 25 mcg (1,000 unit) tablet Take 1 tablet (1,000 Units total) by mouth daily. Active FreeStyle Lanette 3 Plus Sensor device by Not Applicable route. 4 Active blood sugar diagnostic (FreeStyle Lite Strips) test strip USE 1 TEST STRIP VIA METER TWICE A DAY FOR DMII E11.9 4 Active diphenhydrAMINE -acetaminophen (TYLENOL PM) 25-500 mg per tablet Take by mouth. Activ e Active Problems No known active problems Encounters Date Type Department Care Team Description 02/22/2025 1:27 PM EDT - 02/22/2025 11:59 PM EDT Hospital Encounter [facility] Radiation Oncology [address] [place] [phone] Breanna Mendez MD Prostate cancer ([facility] V24, [facility] V28) Discharge Disposition: Home or Self Care 02/22/2025 1:27 PM EDT - 02/22/2025 11:59 PM EDT Hospital Encounter [facility] Radiation Oncology [address] [place] [phone] Discharge Disposition: Home or Self Care 02/15/2025 Telephone [facility] Radiation Oncology [address] [place] [phone] Dorota Pineda MA 02/07/2025 Telephone [facility] Radiation Oncology [address] [place] [phone] Dorota Pineda MA 01/24/2025 3:05 PM EDT - 01/24/2025 11:59 PM EDT Hospital Encounter [facility] PET Scan [address] [place] [phone] Malignant neoplasm of prostate ([facility] V24, [facility] V28) Discharge Disposition: Home or Self Care from Last 3 Months Surgical History Surgery Date Site/Laterality Comments SHOULDER SURGERY PROCEDURE:SHOULDER SURGERY KNEE SURGERY PROCEDURE:KNEE SURGERY JOINT REPLACEMENT PROCEDURE:JOINT REPLACEMENT Medical History Medical History Date Comments Blood clotting tendency ([facility] V24) DX:Blood clotting tendency (HCC) Diabetes mellitus ([facility] V24, [facility] V28) DX:Diabetes mellitus (HCC) Family History Medical History Relation Name Comments Skin cancer Father Colon cancer Maternal Grandmother Relation Name Status Comments Father Maternal Grandmother Social History Tobacco Use Types Packs/Day Years [...] file Not on file Not on file Obstetrics History Last Filed Vital Signs Vital Sign Reading [...] Mass Index 28.55 02/22/2025 1:48 PM EDT Plan of Treatment Health Maintenance Due Date Last Done Comments Diabetes: Annual Foot Exam 1967 Diabetes: Annual Retina Eye Exam 1967 DTaP,Tdap,and Td Vaccines (1 - Tdap) 1976 Cholesterol Screening (Lipid Panel) 06/09/2022 Colorectal Cancer Screening: Colonoscopy 06/09/2022 Hepatitis C Screening 06/09/2022 Medicare Annual Wellness Visit 06/09/2022 Social Influencers of Health Screening 06/09/2022 COVID-19 Vaccine ( season) 2024 12/02/2021, 05/01/2021, 09/25/2020, Additional history exists Depression Screening 07/05/2024 Diabetes: Annual Urine Albumin-Creatinine Ratio (uACR) 01/25/2025 Diabetes: Blood Sugar Control Test (HGBA1C) 01/25/2025 Influenza Vaccine (#1) 2025 , 07/12/2022, 05/03/2020, Additional history exists Diabetes: Annual GFR (Glomerular Filtration Rate) 01/31/2026 01/31/2025 Falls Risk Assessment 02/22/2026 02/22/2025 Zoster Vaccines Completed 01/01/2023, 08/20/2022 RSV Immunization Adult Patients Completed 04/20/2024 Pneumococcal Vaccine: 50+ Years Completed 07/07/2024 HIB Vaccines Aged Out No longer eligi ble based on patient's age to complete this topic HPV Vaccines Aged Out No longer eligi ble based on patient's age to complete this topic Hepatitis A Vaccines Aged Out No long er eligible based on patient's age to complete this topic Hepatitis B Vaccines Aged Out No long er eligible based on patient's age to complete this topic IPV Vaccines Aged Out No longer eligi ble based on patient's age to complete this topic MMR Vaccines Aged Out No longer eligi ble based on patient's age to complete this topic Meningococcal ACWY Vaccine Aged Out N o longer eligible based on patient's age to complete this topic Meningococcal B Vaccine Aged Out No l onger eligible based on patient's age to complete this topic RSV Immunization Patients Under 20 months Aged Out No longer eligible based on patient's age to complete this topic Varicella Vaccines Aged Out No longer eligible based on patient's age to complete this topic Procedures Procedure Name Priority Date/Time Associated Diagnosis Comments PET CT SKULL TO MID THIGH INITIAL Routine 01/24/2025 6:02 PM EDT Malignant neoplasm of prostate ([facility] V24, [facility] V28) from Last 3 Months Results * PET CT Skull to Mid Thigh Initial (01/24/2025 6:02 PM EDT) Anatomical Region Laterality Modality Body Radiographic Molly ging 01/27/2025 7:35 AM EDT Impressions 01/27/2025 8:04 AM EDT Focal activity within the prostate gland in keeping with biopsy-proven prostate carcinoma. No definite PSMA PET findings to suggest metastatic disease. -------- FINAL REPORT -------- Dictated By: Jessica Deleon Dictated Date: 01/27/2025 07:35 ET Assigned Physician: Jessica Deleno Reviewed and Electronically Signed By: Jessica Deleon Signed Date: 01/27/2025 08:04 ET Workstation ID: [id number] Transcribed By: Self Edit Transcribed Date: 01/27/2025 07:35 ET Narrative 01/27/2025 8:04 AM EDT HISTORY: Prostate carcinoma, initial treatment strategy. PRIOR IMAGING STUDIES: Outside MRI of the prostate gland dated December 2024 RADIOPHARMACEUTICAL: 8.5 mCi F-18 piflufolastat IV INJECTION SITE: Left antecubital INJECTION TIME TO SCAN TIME: 70 min PROCEDURE: Routine body PET-CT imaging performed from the head to the thighs and reconstructed in axial, coronal, sagittal planes at the computer workstation with fused data from both the PET imaging study and attenuation correction CT study. Please note, CT imaging utilized strictly for attenuation correction and anatomic localization: CT not designed to produce and cannot replace kimxv-ed-gvd-art true diagnostic CT examination with specific protocols. Standardized uptake values (SUV) normalized to patient body weight and indicate the highest active concentration (SUV max) in a given disease site. DLP: 627 mGy-cm IMAGING FINDINGS: Reference Values SUV Max: Parotid: 7.9 Blood Pool: 2.1 Liver: 6.4 Expected pattern of physiological activity noted. HEAD AND NECK: No abnormal activity. Misregistration during the head portion due to patient motion. THORAX: No abnormal activity. ABDOMEN/PELVIS: Prostatic activity measuring up to SUV Max 14.6. Nonspecific bowel activity. Nonspecific mild activity noted along the right presacral region SUV max 2.3 which may correspond to a vessel or ganglion. MUSCULOSKELETAL: Focal activity along the left T11 costotransverse junction SUV max 2.5 which may represent degenerative changes. Bilateral total hip arthroplasties. Nonspecific sclerosis along the iliac portion of the sacroiliac joints. Multilevel degenerative changes with associated activity. Postsurgical appearance of both shoulders with associated activity likely degenerative or inflammatory in etiology SUV max 2.8 on the left and 2.9 on the right. Procedure Note Jessica Deloen MD - 01/27/2025 HISTORY: Prostate carcinoma, initial treatment strategy. PRIOR IMAGING STUDIES: Outside MRI of the prostate gland dated December 2024 RADIOPHARMACEUTICAL: 8.5 mCi F-18 piflufolastat IV INJECTION SITE: Left antecubital INJECTION TIME TO SCAN TIME: 70 min PROCEDURE: Routine body PET-CT imaging performed from the head to the thighs andreconstructed in axial, coronal, sagittal planes at the computerworkstation with fused data from both the PET imaging study andattenuation correction CT study. Please note, CT imaging utilized strictlyfor attenuation correction and anatomic localization: CT not designed toproduce and cannot replace unkfu-ul-ozt-art true diagnostic CT examinationwith specific protocols. Standardized uptake values (SUV) normalized topatient body weight and indicate the highest active concentration (SUVmax) in a given disease site. DLP: 627 mGy-cm IMAGING FINDINGS: Reference Values SUV Max: Parotid: 7.9 Blood Pool: 2.1 Liver: 6.4 Expected pattern of physiological activity noted. HEAD AND NECK: No abnormal activity. Misregistration during the headportion due to patient motion. THORAX: No abnormal activity. ABDOMEN/PELVIS: Prostatic activity measuring up to SUV Max 14.6.Nonspecific bowel activity. Nonspecific mild activity noted along theright presacral region SUV max 2.3 which may correspond to a vessel organglion. MUSCULOSKELETAL: Focal activity along the left T11 costotransversejunction SUV max 2.5 which may represent degenerative changes. Bilateral total hip arthroplasties. Nonspecific sclerosis along the iliacportion of the sacroiliac joints. Multilevel degenerative changes withassociated activity. Postsurgical appearance of both shoulders withassociated activity likely degenerative or inflammatory in etiology SUVmax 2.8 on the left and 2.9 on the right. IMPRESSION: Focal activity within the prostate gland in keeping with biopsy-provenprostate carcinoma. No definite PSMA PET findings to suggest metastaticdisease. -------- FINAL REPORT -------- Dictated By: Jessica Deleon Dictated Date: 01/27/2025 07:35 ET Assigned Physician: Jessica Deleon Reviewed and Electronically Signed By: Jessica Deleon Signed Date: 01/27/2025 08:04 ET Workstation ID: [id number] Transcribed By: Self Edit Transcribed Date: 01/27/2025 07:35 ET Leonora Aldana MD IMG NM PROCEDURES Final Result from Last 3 Months Insurance MEDICARE [facility] Advance Directives Documents on File Type Date Recorded Patient Support Services Rep Expl anation Health Care Decision (hx) 04/20/2022 AD DUBON DIRECTIVE
--- OUTSIDE RECORDS SUMMARY | 2025-02-27 14:09 | XMS_ITS | Clinical Summary ---
Author Organization [facility] Address [address] [address] Phone Care Team Providers Care Telex Operator Name Role Phone Billy Washburn MD Primary Care Provider + Self-Referred, Patient Unavailable Unavailab Owen Bateman MD Unavailable Allergies Active Allergy Reactions Criticality Noted Date Comments Lisinopril 09/14/2023 Pain in legs Losartan 09/14/2023 Pain in legs Medications citalopram (CELEXA) 10 MG tablet Take 10 mg by mouth. 4 Active TRULICITY 4.5 mg/0.5 mL subcutaneous injection Inject under the skin. 3 Active JARDIANCE 25 mg tablet Take 25 mg by mouth every morning. 4 Active PREVIDENT 5000 DRY MOUTH 1.1 % Pste Place 1 Application onto teeth nightly at bedtime. 4 Active ibuprofen (ADVIL,MOTRIN) 600 MG tablet Take 600 mg by mouth every 6 (six) hours as needed. 4 Active BASAGLAR KWIKPEN U-100 INSULIN 100 unit/mL (3 mL) InPn injection pen Inject 30 Units under the skin every morning. 4 Active metFORMIN (GLUCOPHAGE) 500 MG tablet 500 mg. 3 Active pramipexole (MIRAPEX) 0.5 MG tablet 0.5 mg. 4 Active rosuvastatin (CRESTOR) 5 MG tablet Take 1 tablet by mouth every morning. 3 Active cholecalciferol (VITAMIN D3) 25 MCG (1,000 unit) tablet Take 1,000 Units by mouth daily. Active omeprazole (PRILOSEC) 20 MG tablet Take 20 mg by mouth as needed. Active magnesium chloride (MAG 64 ORAL) Take by mouth. Activ e vitamins A,C,N-xwan-voiml r (PRESERVISION AREDS) 4,296 mcg-226 mg-90 mg Cap Take 1 capsule by mouth 2 (two) times a day with meals. Active ibuprofen (ADVIL,MOTRIN) 200 MG tablet Take 400 mg by mouth daily as needed for pain (specific location in comments). Active acetaminophen (TYLENOL) 500 MG tablet Take 1,000 mg by mouth daily as needed for pain (specific location in comments). Active MAGNESIUM ORAL Take 1 tablet by mouth nightly at bedtime. Active sertraline (ZOLOFT) 50 MG tablet Take 50 mg by mouth daily. 5 Active MOUNJARO 10 mg/0.5 mL PnIj subcutaneous pen Inject 10 mg under the skin once a week. 5 Active amoxicillin (AMOXIL) 500 MG capsule Take 500 mg by mouth daily. 4 Active FREESTYLE FELICITAS 3 PLUS SENSOR Mikki by NOT APPLICABLE route. 4 Active Active Problems Problem Noted Date Diagnosed Date Primary osteoarthritis involving multiple joints 10/19/2023 Assessment & Plan (10/19/2023 5:15 PM EDT): He has degenerative osteoarthritis in multiple joints most bothersome in the shoulders and hips. He does not have polymyalgia rheumatica. This explains the less than complete resolution of his symptoms when he was given a trial on prednisone. Advised him to take Tylenol arthritis 650 mg as needed. He does not need to be treated with more prednisone. Encounters Date Type Department Care Team Description 02/27/2025 Orders Only [facility] Urology [address] [place] [address] Taty Moraes Adenocarcinoma of prostate (Primary Dx) 02/23/2025 10:00 AM EDT Office Visit [facility], [facility] [address] [facility], [address]th [place] [address] Ubaldo Britt MD Prostate cancer (Primary Dx) 02/07/2025 12:00 PM EDT Office Visit [facility], [address] [place] [address] Madhav Winter MD Prostate cancer (Primary Dx) 01/31/2025 9:00 AM EDT [facility], [address] [place] [address] Owen Kyle MD Rosenblatt, Lauren Beth 01/31/2025 7:30 AM EDT Office Visit [facility], [address] [place] [address] Owen Kyle MD Prostate cancer (Primary Dx) 01/31/2025 Ancillary Orders [facility] IMG OUTSIDE IMG [address] [place] [address] Owen Kyle MD 01/26/2025 9:20 AM EDT - 01/26/2025 11:59 PM EDT Hospital Encounter [facility], [address] [address] Discharge Disposition: Home or Self Care 01/25/2025 Ancillary Orders DF IMG OUTSIDE IMG [address] [place] [address] Owen Kyle MD 01/24/2025 Ancillary Procedure [facility] OUTSIDE IMG [address] [place] [address] Owen Kyle MD 01/24/2025 Ancillary Orders [facility] OUTSIDE IMG [address] [place] [address] Owen Kyle MD 01/24/2025 Ancillary Orders [facility] OUTSIDE IMG [address] [place] [address] Owen Kyle MD 01/24/2025 Ancillary Orders [facility] OUTSIDE IMG [address] [place] [address] Owen Kyle MD 01/24/2025 Orders Only [facility] [address] [facility] [place] [address] Owen Kyle MD Prostate cancer (Primary Dx) 12/26/2024 Ancillary Procedure [facility] OUTSIDE IMG [address] [place] [address] Owen Kyle MD from Last 3 Months Social History Tobacco Use Types Packs/Day Years [...] Orientation Straight 01/19/2025 1: 48 PM EDT Last Filed Vital Signs Vital Sign Reading Time Taken Comments Blood Pressure 120/58 02/23/2025 9:45 AM EDT Pulse 73 02/23/2025 9:45 AM EDT Temperature 37.1 C (98.7 F) 02/23/2025 9:42 AM EDT Respiratory Rate 18 02/23/2025 9:42 AM EDT Oxygen Saturation 98% 02/23/2025 9:45 AM EDT Inhaled Oxygen Concentration - - Weight 89.3 kg (196 lb 13.9 oz) 02/23/2025 9:42 AM EDT Height 175.1 cm (5' 8.94 ) 01/31/2025 7:20 AM ED T Body Mass Index 29.13 01/31/2025 7:20 AM EDT Plan of Treatment Upcoming Encounters Date Type Department Care Team (Late st Contact Info) Description 03/08/2025 10:40 AM EDT Pre-Admission Testing [address] [address] Ubaldo Britt MD [address] [place] [id number] [email or web address] 03/22/2025 Procedure Pass [facility] Periop [address] [place] [address] 03/22/2025 11:53 AM EDT Hospital Encounter [facility] Periop 1st [address] [place] [address] Ubaldo Britt MD [address] [place] [address] 03/22/2025 11:53 AM EDT - 03/22/2025 4:16 PM EDT Surgery F Periop 1st floor [address] [place] [address] Ubaldo Britt MD [address] [address] [email or web address] ROBOTIC SINGLE PORT LAPAROSCOPIC RADICAL PROSTATECTOMY WITH BILATERAL LYMPH NODE DISSECTION 03/30/2025 2:00 PM EDT Office Visit [facility] [address] [facility] [address] [place] [address] Juan Cheney PA-C [address] [place] [address] [email or web address] 04/06/2025 9:10 AM EDT Telemedicine [facility] Urology [address] [place] [address] Ubaldo Britt MD [address] [address] [email or web address] Scheduled Procedures Name Priority Associated Diagnoses Date/Ti me ROBOTIC SINGLE PORT LAPAROSCOPIC RADICAL PROSTATECTOMY WITH BILATERAL LYMPH NODE DISSECTION Prostate cancer 03/22/2025 11:53 AM EDT Health Maintenance Due Date Last Done Comments Adult Td,Tdap Booster 1955 LIPID PANEL 1955 DEPRESSION SCREENING 1969 SMOKING Hx and SMOKELESS TOBACCO SCREENING 1970 HEPATITIS C SCREENING 1975 COLOGUARD 2002 COLONOSCOPY 2002 COLORECTAL CANCER SCREENING 2002 FIT TEST 2002 FOBT 2002 SIGMOIDOSCOPY 2002 VIRTUAL COLONOSCOPY 2002 ABDOMINAL AORTIC ANEURYSM (AAA) SCREENING 2022 COVID-19 VACCINE ( season) 2024 12/02/2021, 05/01/2021, 09/25/2020, Additional history exists INFLUENZA VACCINE (#1) 2025 , 07/12/2022, 05/03/2020 CREATININE LEVEL 01/31/2026 01/31/2025 SCREENING FOR DIABETES 02/01/2028 01/31/2025 ZOSTER VACCINES Completed 01/01/2023, 08/20/2022 RSV VACCINE Completed 04/20/2024 PNEUMOCOCCAL VACCINES (50+ years) Completed 07/07/2024 HEPATITIS A VACCINES Aged Out No long er eligible based on patient's age to complete this topic HIB VACCINES Aged Out No longer eligi ble based on patient's age to complete this topic MENINGOCOCCAL VACCINES (ACWY) Aged Out No longer eligible based on patient's age to complete this topic MENINGOCOCCAL VACCINES (B) Aged Out N o longer eligible based on patient's age to complete this topic Medical Devices Not on file Procedures Procedure Name Priority Date/Time Associated Diagnosis Comments CANCER NEXT EXPANDED Routine 01/31/2025 9:52 AM EDT Prostate cancer TESTOSTERONE, TOTAL Routine 01/31/2025 9 :52 AM EDT Prostate cancer PSA DIAGNOSTIC (MONITORING) Routine 01/31/2025 9:52 AM EDT Prostate cancer COMPREHENSIVE METABOLIC PANEL Routine 01/31/2025 9:52 AM EDT Prostate cancer OUTSIDE IMAGING 01/24/2025 NM PET WHOLE BODY OUTSIDE (NO INTERPRETATION) Routine 01/24/2025 12:00 AM EDT OUTSIDE PATHOLOGY REVIEW Routine 01/02/2025 12:00 AM EDT OUTSIDE PATHOLOGY 01/02/2025 OUTSIDE PATHOLOGY 01/02/2025 OUTSIDE PROCEDURE 01/02/2025 MRI PELVIS (SOFT TISSUE) OUTSIDE (NO INTERPRETATION) Routine 12/26/2024 12:00 AM EDT OUTSIDE IMAGING 12/26/2024 OUTSIDE IMAGING 12/26/2024 from Last 3 Months Results * CancerNext Expanded (01/31/2025 9:52 AM EDT) Gene mutation analysis SEE MANUAL REPORT [facility] LIC# [id number] Blood 01/31/2025 9:52 AM EDT 01/31/2025 10:16 AM EDT Aydee Stuart Rudy [facility] LAB BLOOD ORDERABLES Final Result [facility] LIC# [id number] [address] [place] [address] * (ABNORMAL) Comprehensive metabolic panel (01/31/2025 9:52 AM EDT) Pathologist [facility] SODIUM 137 136 - 145 mmol/L [facility] LIC# [id number] POTASSIUM 4.4 3.4 - 5.1 mmol/L [facility] LIC# [id number] CHLORIDE 102 98 - 107 mmol/L [facility] LIC# [id number] CO2 20(L) 22 - 31 mmol/L [facility] LIC# [id number] BUN 14 6 - 23 mg/dL [facility] LIC# [id number] CREATININE 0.68 0.50 - 1.20 mg/dL [facility] LIC# [id number] GLUCOSE 124(H) 70 - 100 mg/dL [facility] LIC# [id number] ALBUMIN 4.3 3.5 - 5.2 g/dL [facility] LIC# [id number] TOTAL PROTEIN 7.9 6.4 - 8.3 g/dL [facility] LIC# [id number] CALCIUM 9.6 8.8 - 10.7 mg/dL [facility] LIC# [id number] ALKALINE PHOSPHATASE 104 40 - 129 U/L [facility] LIC# [id number] TOTAL BILIRUBIN 0.4 0.2 - 1.2 mg/dL [facility] LIC# [id number] AST 16 <41 U/L [facility] LIC# [id number] ALT 12 <42 U/L [facility] LIC# [id number] GLOBULIN 3.6 2.3 - 4.2 g/dL [facility] LIC# [id number] EGFR 102 >59 mL/min/1.7 3m2 [facility] LIC# [id number] Comment:Estimated glomerular filtration rate calculated using the CKD-EPI refit equation. ANION GAP 15 7 - 17 mmol/L [facility] LIC# [id number] Blood 01/31/2025 9:52 AM EDT 01/31/2025 10:17 AM EDT us Owen Kyle MD LAB BLOOD ORDERABLES Final Result Performing Organization Address [facility] Co de Phone Number [facility] LIC# [id number] [address] [place] [address] * (ABNORMAL) PSA diagnostic (monitoring) (01/31/2025 9:52 AM EDT) PSA Monitoring 25.25(H) 0.00 - 4.00 ng/mL [facility] LIC# [id number] Blood 01/31/2025 9:52 AM EDT 01/31/2025 10:17 AM EDT us Owen Kyle MD LAB BLOOD ORDERABLES Final Result Performing Organization Address [facility] Co de Phone Number [facility] LIC# [id number] [address] [place], [place] [id number] * Testosterone, total (01/31/2025 9:52 AM EDT) TESTOSTERONE 338 193 - 740 ng/dL [facility] LIC# [id number] Blood 01/31/2025 9:52 AM EDT 01/31/2025 10:17 AM EDT us Owen Kyle MD LAB BLOOD ORDERABLES Final Result Performing Organization Address City/[facility] Co de Phone Number [facility] LIC# [id number] [address] [place] [address] * Outside Imaging Report Only (01/24/2025) us Scanning Interface Provider IMG XR CHEST Meghan l Result * NM PET Whole Body Outside (No Interpretation) (01/24/2025 12:00 AM EDT) Other Narrative SOFIE - 01/25/2025 9:59 AM EDT This study is for PACS storage only and not for interpretation. us Owen Kyle MD IMG OUTSIDE IMAGING W/OUT I NTERPRETATION Final Result MALINDA_LINDA * Outside Procedure (01/02/2025) us Scanning Interface Provider PROCEDURE/MINOR SURG ICAL PERFORMABLES Final Result * Outside Pathology (01/02/2025) Only the most recent of2 resultswithin the time period is included. us Scanning Interface Provider PATHOLOGY ORDERABLES Final Result * Outside Pathology Review (01/02/2025 12:00 AM EDT) 01/02/2025 01/26/2025 Narrative [facility] - 02/09/2025 3:13 PM EDT CASE: [id number] PATIENT: KRISTOFER SEVERINO Date: 1955 Sex: Male [facility] Department of Pathology [address] [place], [place] [address]IA License No.: [id number] Fixed Wing Pilot: Dr. Abdirahman Mirza MD, PhD Physician: OWEN KYLE MD Resident: Gray Reynolds M.D. Pathologist: Yane Gant M.D. PATHOLOGIC DIAGNOSIS: CONSULT SLIDES FROM [facility], [place], [place] PROSTATE CORE BIOPSIES ([id number]; 01/02/25): A) RIGHT MEDIAL BASE: Benign prostatic tissue. B) RIGHT MEDIAL MID: Benign prostatic tissue. C) RIGHT MEDIAL APEX: Benign prostatic tissue. D) RIGHT LATERAL BASE: Benign prostatic tissue. E) RIGHT LATERAL MID: Benign prostatic tissue. F) RIGHT LATERAL APEX: Benign prostatic tissue. G) LEFT MEDIAL BASE: Benign prostatic tissue. H) LEFT MEDIAL MID: PROSTATIC ADENOCARCINOMA, focus too small for precise Jose grading; however, [place] pattern 4 is present. No perineural invasion. I) LEFT MEDIAL APEX: Benign prostatic tissue. J) LEFT LATERAL BASE: PROSTATIC ADENOCARCINOMA, focus too small to grade. No perineural invasion. K) LEFT LATERAL MID: PROSTATIC ADENOCARCINOMA, focus too small for precise Jose grading; however, Jose pattern 4 is present. No perineural invasion. L) LEFT LATERAL APEX: Benign prostatic tissue. M) TARGET # 1: Benign prostatic tissue. CLINICAL DATA: History: None provided TISSUE SUBMITTED: Consult slides. GROSS DESCRIPTION: Received from [facility], Department of Pathology, [address] [place] [address], [address] [address], are forty two (42) slides. Forty two (42) stained slides are labeled [id number] and sublabeled A1 , A3 , A5 , B1 , B3 , B5 , C1 , C3 , C5 , D1 , D3 , D5 , E1 , E3 , E5 , F1 , F2 , F3 , F5 , G1 , G2 , G3 , H1 , H3 , H5 , I1 , I3 , I5 , J1 , J2 , J3 , J5 , K1 , K2 , K3 , K5 , L1 , L3 , L5 , M1 , M3 and M5 which correspond to a prostate biopsy obtained on 01/02/25, according to the accompanying pathology report bearing the patient's name and date of . By his/her signature below, the senior physician certifies that he/she personally conducted a microscopic examination ( gross only exam if so stated) of the described specimen(s) and rendered or confirmed the diagnosis(es) related thereto. Final Diagnosis by Yane Gant M.D., Electronically signed on Sunday February 09, 2025 at 03:13:29PM Owen Kyle MD PATHOLOGY ORDERABLES Final Result [address] [address] * Outside Imaging Report Only (12/26/2024) us Scanning Interface Provider IMG XR CHEST Meghan l Result * Outside Imaging Report Only (12/26/2024) us Scanning Interface Provider IMG XR CHEST Meghan l Result * MRI Pelvis (Soft Tissue) Outside (No Interpretation) (12/26/2024 12:00 AM EDT) Other Narrative IZA - 01/24/2025 12:09 PM EDT This study is for PACS storage only and not for interpretation. us Owen Kyle MD IMG OUTSIDE IMAGING W/OUT I NTERPRETATION Final Result MALINDA_VINICIOCI from Last 3 Months Insurance MEDICARE PART A & B [employer] SUPPLEMENT MEDICARE PART A & B Member Subscriber Plan / Payer (Ef fective 2022-) Name:Mere, Kristofer Member ID:[id number] Relation to Subscriber:Self Name:MereKristofer mays Subscriber ID:[id number] Payer ID:[id number] Group ID:Not on file Type:Medicare Address: [facility] [address] [place] [phone] [employer] MEDEX SUPPLEMENT MEDICARE PART A & B Member Subscriber Plan / Payer (Ef fective 2022-) Name:Kristofer Severino Member ID:[id number] Relation to Subscriber:Self Name:Mere Kristofer Subscriber ID:[id number] Payer ID:[id number] Group ID:Not on file Type:Medicare Address: [facility] [address] [place] [address] [employer] MEDEX SUPPLEMENT MEDICARE PART A & B Member Subscriber Plan / Payer (Ef fective 2022-) Name:Kristofer Severino Member ID:[id number] Relation to Subscriber:Self Name:Kristofer Severino Subscriber ID:[id number] Payer ID:[id number] Group ID:Not on file Type:Medicare Address: [facility] [address] [place] [phone] [employer] MEDEX SUPPLEMENT MEDICARE PART A & B Member Subscriber Plan / Payer (Ef fective 2022-) Name:Kristofer Severino Member ID:[id number] Relation to Subscriber:Self Name:Kristofer Severino Subscriber ID:[id number] Payer ID:[id number] Group ID:Not on file Type:Medicare Address: [facility] [address] [place] [address] [employer] MEDEX SUPPLEMENT MEDICARE PART A & B [employer] MEDEX SUPPLEMENT Care Teams Telex Operator Relationship Specialty Start Date End Date Billy Washburn MD [address] [place] [id number] PCP - General Internal Medicine 05/06/23 Self-Referred, Patient 01/19/25 Owen Kyle MD [address] [place] [address] Oncology, [place] [address] [place] [address] [email or web address] Medical Oncology 01/19/25 Additional Source Comments The information contained in this document represents components of the legal health record. It is not the complete legal health record.[facility]
== END 2025-02-27 13:34 | disposition home or self-care (01) ==
LOC: HO.HOS 13:17
PROVIDERS: PCP Internal Medicine; Visit Provider Orthopaedic Surgery
DX: M25.511 Pain in right shoulder (principal)
CPT/HCPCS: 99213; G2211

== ENCOUNTER → 2025-02-27 13:17 | Outpatient (BNVA) | payer MEDICARE, SELFPAY | PROVIDERS: PCP Internal Medicine; Visit Provider Orthopaedic Surgery | DX: M25.511 Pain in right shoulder (principal) | CPT/HCPCS: 99212 ==